=== PATIENT | male | born 1965 | race American Indian/Alaskan Native ===

== ENCOUNTER 2021-05-21 14:47 | Emergency (ER) | payer OTHER, MEDICAID, SELFPAY ==
[2021-05-21 15:06] VITALS: BP 159/90; PULSE 84; RESP 18; TEMP 37; O2SAT 99; BMI 24.4
--- NOTE | 2021-05-21 15:16 | PC.NURSE ---
Pt does use rx glasses but does not have them with him.
--- NOTE | 2021-05-21 16:08 | ED_ITS ---
HPI - Eye Problem <Stevenson Hamlin PA-C - Last Filed: 05/21/21 16:35> General Chief complaint: Eye Problems Stated complaint: bug bite on eye Time Seen by Provider: 05/21/21 15:07 Source: patient Mode of arrival: Ambulatory Limitations: no limitations History of Present Illness HPI Narrative: Kartik presents today with chief complaint of right eye redness and discomfort that he 1st noticed yesterday. He reports that he was doing some cleaning and working the yd an thinks that he got some dirt in his eye. There were a lot of flies around and one of them could have hit his eye also. He de nies any significant difficulty seeing, facial swelling, headache, fever, pain with eye movement or any other acute concerns or complaints at this time. Related Data Previous Rx's Medication Instructions Recorded erythromycin 5 mg/gram (0.5 %) eye 1 applic EYE-RIGHT TID 7 Days #3.5 05/21/21 ointment g Allergies Allergy/AdvReac Type Severity Reaction Status Date / Time No Known Drug Allergies Allergy Verified 05/21/21 16:08 Review of Systems <Stevenson Hamlin PA-C - Last Filed: 05/21/21 16:35> Review of Systems Narrative: As per HPI Patient History <Stevenson Hamlin PA-C - Last Filed: 05/21/21 16:35> Social History Smoking Status: Never smoker Smoking Status: Never smoker alcohol intake frequency: a few times a week Substance Use Type: does not use Exam <Stevenson Hamlin PA-C - Last Filed: 05/21/21 16:35> Narrative Exam Narrative: Exam Narrative: Const General: cooperative, healthy appearing, comfortable, no acute distress, well developed and well groomed Nutritional Appearance: average body habitus Orientation: alert and oriented x3 HENMT Head: normal to inspection and atraumatic Ears: hearing grossly normal bilaterally Nose: external nose normal and nares normal Face and sinus: normal facial exam Eyes: Right-sided conjunctival injection noted, watery discharge on the right. No foreign body visualized. Fluorescein stain applied with proparacaine and corneal abrasion noted at the 10 o'clock position overlying the lateral aspect of his iris. Neck Neck: normal visual inspection and supple Resp Effort & Inspection: normal respiratory effort, able to speak in complete sentences, no audible wheezes, not labored, no nasal flaring and no respiratory distress Neuro General: alert, oriented x3, gait normal, tone normal and moves all extremities Cognition: normal cognition Speech: speech normal Gait: normal gait Psych Appearance: grossly normal and well kempt Mental Status: mental status grossly normal Speech and Movement: speech and movement normal Mood: congruent mood Affect: normal affect Initial Vital Signs Initial Vital Signs: Vital Signs Temperature 98.6 F 05/21/21 15:06 Pulse Rate 84 05/21/21 15:06 Respiratory Rate 18 05/21/21 15:06 Blood Pressure 159/90 H 05/21/21 15:06 Pulse Oximetry 99 05/21/21 15:06 <Armin Kwong DO - Last Filed: 05/21/21 16:59> Initial Vital Signs Initial Vital Signs: Vital Signs Temperature 98.6 F 05/21/21 15:06 Pulse Rate 84 05/21/21 15:06 Respiratory Rate 18 05/21/21 15:06 Blood Pressure 159/90 H 05/21/21 15:06 Pulse Oximetry 99 05/21/21 15:06 Course <Stevenson Hamlin PA-C - Last Filed: 05/21/21 16:35> Orders Ordered: Discontinued Medications Fluorescein Sodium (Fluorescein 1 Mg Strip) 1 mg EYE-LEFT NOW ONE Stop: 05/21/21 16:00 Last Admin: 05/21/21 16:09 Dose: 1 mg Documented by: BAKARI Proparacaine HCl (Proparacaine 0.5% Ophth Jaja) 1 drops EYE-LEFT NOW ONE Stop: 05/21/21 16:00 Last Admin: 05/21/21 16:09 Dose: 1 drop Documented by: BAKARI Vital Signs Vital signs: Vital Signs - 8 hr 05/21/21 15:06 05/21/21 16:23 Temperature 98.6 F Pulse Rate 84 80 Respiratory Rate 18 18 Blood Pressure 159/90 H 132/95 H Pulse Oximetry 99 98 <DO Neli Green Last Filed: 05/21/21 16:59> Orders Ordered: Discontinued Medications Fluorescein Sodium (Fluorescein 1 Mg Strip) 1 mg EYE-LEFT NOW ONE Stop: 05/21/21 16:00 Last Admin: 05/21/21 16:09 Dose: 1 mg Documented by: BAKARI Proparacaine HCl (Proparacaine 0.5% Ophth Jaja) 1 drops EYE-LEFT NOW ONE Stop: 05/21/21 16:00 Last Admin: 05/21/21 16:09 Dose: 1 drop Documented by: BAKARI Vital Signs Vital signs: Vital Signs - 8 hr 05/21/21 15:06 05/21/21 16:23 Temperature 98.6 F Pulse Rate 84 80 Respiratory Rate 18 18 Blood Pressure 159/90 H 132/95 H Pulse Oximetry 99 98 MDM - Eye Problem <Stevenson Hamlin PA-C - Last Filed: 05/21/21 16:35> MDM Narrative Medical decision making narrative: No juanjose orbital lesions noted. No significant eyelid swelling or periorbital swelling. No pain with eye movement and vision is intact. We will treat for corneal abrasion at this time with strict ER return precautions if symptoms fail to improve. Discharge Plan Departure Patient Disposition: Home Clinical Impression: Corneal abrasion Qualifiers: Encounter type: initial encounter Laterality: right Qualified Code(s): S05.01XA - Injury of conjunctiva and corneal abrasion without foreign body, right eye, initial encounter Instructions: DI for Eye Pain Activity Restrictions/Additional Instructions: It was nice to meet you this afternoon. Please use the topical antibiotics for 7 days to treat any possible infection. Please return if you experience any difficulty seeing, pain with eye movement, fever or any other acute concerns or complaints. Thank you Stevenson Hamlin PAC Prescriptions: New erythromycin 5 mg/gram (0.5 %) ointment 1 applic EYE-RIGHT TID 7 Days Qty: 3.5 RF: 0 <rAmin Kwong DO - Last Filed: 05/21/21 16:59> Cosign ED Attending Cosignature Attestation: Dr Kwong Co-Sign Statement: I was available for consultation during this patient's emergency department visit. This chart is signed by myself for administrative purposes only. I did not have direct contact with this patient during this visit. They were seen independently by the APC.
[2021-05-21] MEDS: PROPARACAINE 0.5% OPHTH SOL 1 DROPS EYE-LEFT (16:09)
[2021-05-21] MEDS: FLUORESCEIN 1 MG STRIP EYE-LEFT (16:09)
[2021-05-21 16:23] VITALS: BP 132/95; PULSE 80; RESP 18; O2SAT 98
== END 2021-05-21 16:25 | disposition home or self-care (01) ==
PROVIDERS: Emergency Provider Physician Assistant
DX: S05.01XA Injury of conjunctiva and corneal abrasion without foreign body, right eye, initial encounter (principal)
CPT/HCPCS: 99282

== ENCOUNTER 2022-02-01 17:05 | Emergency (ER) | payer OTHER, MEDICAID, SELFPAY ==
[2022-02-01 17:03] VITALS: BP 141/93; PULSE 83; RESP 16; TEMP 36.4; O2SAT 95; BMI 18.2
--- NOTE | 2022-02-01 17:11 | DI.RAD.S_ITS ---
PROCEDURE: XR CHEST 1V INDICATIONS: etoh TECHNIQUE: One view of the chest was acquired. COMPARISON: None. FINDINGS: Surgical changes and devices: None. Lungs and pleura: Lungs are clear. No pleural effusions or pneumothorax. Mediastinum: Mediastinal contours appear normal. Heart size is normal. Bones and chest wall: No suspicious bony lesions. Overlying soft tissues appear unremarkable. Old healed right-sided rib fractures noted. IMPRESSION: Old healed right-sided rib fractures. No acute cardiopulmonary findings. Approved by: Andrew Reeder M.D. on 02/01/2022 at 16:42
--- NOTE | 2022-02-01 17:11 | DI.CT.S_ITS ---
PROCEDURE: CT HEAD/BRAIN WO CON INDICATIONS: etoh found unresponsive TECHNIQUE: Noncontrast 4.5 mm thick angled axial sections acquired from the foramen magnum to the vertex, with coronal and sagittal reformats. For radiation dose reduction, the following was used: automated exposure control, adjustment of mA and/or kV according to patient size. COMPARISON: None. FINDINGS: Image quality: Excellent. CSF spaces: Basal cisterns are patent. No extra-axial fluid collections. Ventricles are normal in size and shape. Brain: No midline shift. No intracranial masses or hemorrhage. Scherer-white matter interface is normal. Moderate cerebral and cerebellar volume loss with multifocal white matter chronic ischemic change noted. Mild calcified atherosclerotic plaque noted involving the cavernous portions of both internal carotid arteries. Skull and face: Calvarium and visualized facial bones are intact, without suspicious lesions. Sinuses: Visualized sinuses and mastoids are clear. IMPRESSION: Atrophy and chronic ischemic change without acute intracranial hemorrhage or mass effect. Approved by: Andrew Reeder M.D. on 02/01/2022 at 16:43
--- NOTE | 2022-02-01 17:11 | DI.CT.S_ITS ---
PROCEDURE: CT CERVICAL SPINE WO CON INDICATIONS: etoh TECHNIQUE: Noncontrast 3 mm thick sections acquired from the skull base to the T4 level. Sagittal and coronal reformats were then constructed. For radiation dose reduction, the following was used: automated exposure control, adjustment of mA and/or kV according to patient size. COMPARISON: None. FINDINGS: Image quality: Excellent. Bones: No evidence of fracture. However, there is widening of the C4-5 anterior disc space. No associated soft tissue edema. Multilevel degenerative disc space narrowing and endplate sclerosis noted in the mid to lower cervical spine. Grade 1 retrolisthesis noted at C3-4 resulting in moderate central stenosis. Severe right foraminal stenosis present. Moderate central stenosis noted at C6-7 as well Soft tissues: Prevertebral soft tissues are normal in thickness. No paravertebral hematomas. No apical pneumothoraces. IMPRESSION: 1. Widening of the anterior disc space at C4-5 may reflect relative sparing of degenerative change, however, recommend follow-up MRI cervical spine to assess integrity of the anterior longitudinal ligament 2. Multilevel degenerative disc disease and arthropathy results in at least moderate central stenosis at C3-4 and C6-7 Approved by: Andrew Reeder M.D. on 02/01/2022 at 16:48
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
== END 2022-02-01 19:01 | disposition home or self-care (01) ==
PROVIDERS: Emergency Provider Emergency Medicine
DX: F10.129 Alcohol abuse with intoxication, unspecified (principal)
CPT/HCPCS: 70450; 71045; 72125; 99283; 99284

== ENCOUNTER 2022-12-15 16:21 | Emergency (ER) | payer OTHER, MEDICAID, SELFPAY ==
[2022-12-15] VITALS (17 sets, daily range): BP systolic 101–140; BP diastolic 66–95; PULSE 71–127; RESP 11–61; TEMP 36.3; O2SAT 90–98; BMI 24.8
--- NOTE | 2022-12-15 16:29 | DI.RAD.S_ITS ---
PROCEDURE: XR FOOT RT MIN 3V INDICATIONS: foot swelling/pain TECHNIQUE: 3 views of the foot were acquired. COMPARISON: None. FINDINGS: Bones: No fractures or malalignment. Small dorsal plantar calcaneal spur. There is incomplete segmentation or erosive joint space loss at the 5th PIP joint. Soft tissues: No tibiotalar joint effusion. Achilles tendon appears normal. Soft tissue swelling around the 1st digit. No soft tissue gas. IMPRESSION: 1. No soft tissue gas or fractures. Dictated by: Mag Bo M.D. on 12/15/2022 at 18:24 Approved by: Mag Bo M.D. on 12/15/2022 at 18:33
--- NOTE | 2022-12-15 16:32 | ED_ITS ---
HPI - Alcohol <Ben Solorio MD - Last Filed: 12/22/22 08:31> General Chief Complaint: Toxicology Problem Stated Complaint: ETOH/uncooperative Time Seen by Provider: 12/15/22 16:23 History of Present Illness HPI narrative: Patient brought in by ambulance from home after a woman at the residence called for concern of right foot swelling. Patient admits he has been drinking alcohol. Patient is verbally abusive and at times swinging his arms at staff and EMS. Patient required 2 point soft restraints to the wrists. Blood sugar 114. Patient is able to state his name and date of . He admits to drinking alcohol today. He was seen here a year ago for alcohol intoxication. Woman at his residence uncertain of any fall or injury. Related Data Allergies Allergy/AdvReac Type Severity Reaction Status Date / Time No Known Drug Allergies Allergy Verified 02/01/22 17:06 Review of Systems <Ben Solorio MD - Last Filed: 12/22/22 08:31> Review of Systems Narrative: GENERAL: negative chills, fatigue, malaise, fever, sweats. HEENT: negative sinus pain, ear pain, sore throat RESPIRATORY: negative dyspnea, cough CARDIOVASCULAR: negative chest pain, palpitations GASTROINTESTINAL: negative nausea, vomiting, abdominal pain : negative dysuria, frequency, hematuria MUSCULOSKELETAL: negative muscle or bony pain SKIN: negative rash, skin lesions, positive skin injury NEUROLOGIC: negative weakness, numbness, positive altered mental status PSYCH: Is combative ROS Unobtainable: All systems reviewed & are unremarkable except as noted in HPI and below Patient History <Ben Solorio MD - Last Filed: 12/22/22 08:31> Social History Smoking Status: Never smoker Smoking Status: Never smoker alcohol intake frequency: a few times a week Alcohol type: hard liquor Substance Use Type: does not use Exam <Ben Solorio MD - Last Filed: 12/22/22 08:31> Narrative Exam Narrative: GENERAL: in no distress, not toxic not dyspneic HEAD: Normocephalic. EYES: Pupils equal round ENT: Mucous membranes moist. NECK: Trachea midline. CARDIOVASCULAR: Regular rate and rhythm without murmurs RESPIRATORY: Clear to auscultation. Breath sounds equal bilaterally. No wheezes, rales, or rhonchi. GASTROINTESTINAL: Abdomen soft, non-tender EXTREMITIES: No gross deformities. Examination right foot. There is edema to the forefoot and to the great toe. There is a 5 mm ulceration at the pad of the great toe. There is red streaking from the toe up the foot. No crepitus of the skin. No necrotic tissue. BACK: No flank tenderness. NEURO: Awake alert oriented self and date of SKIN: Warm and dry PSYCH: Is combative. Is verbally abusive. Initial Vital Signs Initial Vital Signs: Vital Signs Pulse Rate 90 12/15/22 16:30 Pulse Oximetry 94 12/15/22 16:30 <Armin Kwong DO - Last Filed: 12/16/22 06:02> Initial Vital Signs Initial Vital Signs: Vital Signs Pulse Rate 90 12/15/22 16:30 Pulse Oximetry 94 12/15/22 16:30 Course <Ben Solorio MD - Last Filed: 12/22/22 08:31> Course Course Narrative: December 15, 2022 at 6:[address] Kwong, labs and radiographic studies pending. Patient required sedation. He is on soft restraints as well. Will need [id number] at 8:45 p.m. Orders Ordered: Discontinued Medications Haloperidol (Haloperidol 5 Mg/Ml Vial) 5 mg IM NOW ONE Stop: 12/15/22 16:24 Last Admin: 12/15/22 16:58 Dose: 5 mg Documented By: CTS Doxycycline Hyclate 100 mg/ (Sodium Chloride) 100 mls @ 100 mls/hr IV NOW ONE Stop: 12/15/22 18:18 Last Infusion: 12/15/22 20:06 Dose: 0 mls/hr Documented By: Admin: 12/15/22 18:56 Dose: 100 mls/hr Documented By: CTS Sodium Chloride (Normal Saline 0.9%) 1,000 mls @ 1,000 mls/hr IV BOLUS ONE Stop: 12/15/22 19:48 Last Infusion: 12/15/22 22:18 Dose: 0 mls/hr Documented By: Admin: 12/15/22 18:55 Dose: 1,000 mls/hr Documented By: CTS Thiamine HCl 200 mg/ Sodium (Chloride) 102 mls @ 408 mls/hr IV NOW ONE Stop: 12/15/22 18:50 Last Infusion: 12/15/22 19:30 Dose: 0 mls/hr Documented By: Admin: 12/15/22 18:55 Dose: 408 mls/hr Documented By: JACEY Lorazepam (Lorazepam 2 Mg/Ml Inj) 2 mg IM NOW ONE Stop: 12/15/22 16:24 Last Admin: 12/15/22 16:58 Dose: 2 mg Documented By: JACEY Vital Signs Vital signs: Vital Signs - 8 hr 12/15/22 22:00 12/15/22 22:00 12/15/22 22:30 Pulse Rate 84 Respiratory Rate 13 Blood Pressure 109/71 129/82 Pulse Oximetry 92 12/15/22 22:30 12/15/22 23:00 12/15/22 23:00 Pulse Rate 71 83 Respiratory Rate 12 12 Blood Pressure 137/83 Pulse Oximetry 95 90 L 12/15/22 23:30 12/16/22 00:00 12/16/22 00:00 Pulse Rate 78 79 Respiratory Rate 13 13 Blood Pressure 134/85 Pulse Oximetry 95 96 12/16/22 00:30 12/16/22 01:00 12/16/22 01:00 Pulse Rate 76 77 Respiratory Rate Blood Pressure 140/80 Pulse Oximetry 98 91 12/16/22 01:30 12/16/22 02:00 12/16/22 02:00 Pulse Rate 80 88 Respiratory Rate Blood Pressure 107/63 Pulse Oximetry 96 89 L 12/16/22 02:30 12/16/22 03:00 12/16/22 03:30 Pulse Rate 92 H 92 H 91 H Respiratory Rate Blood Pressure Pulse Oximetry 93 93 95 12/16/22 04:00 12/16/22 04:00 12/16/22 04:30 Pulse Rate 95 H 110 H Respiratory Rate Blood Pressure 110/67 Pulse Oximetry 93 97 <Armin Kwong, DO - Last Filed: 12/16/22 06:02> Orders Ordered: Discontinued Medications Haloperidol (Haloperidol 5 Mg/Ml Vial) 5 mg IM NOW ONE Stop: 12/15/22 16:24 Last Admin: 12/15/22 16:58 Dose: 5 mg Documented By: JACEY Doxycycline Hyclate 100 mg/ (Sodium Chloride) 100 mls @ 100 mls/hr IV NOW ONE Stop: 12/15/22 18:18 Last Infusion: 12/15/22 20:06 Dose: 0 mls/hr Documented By: Admin: 12/15/22 18:56 Dose: 100 mls/hr Documented By: JACEY Sodium Chloride (Normal Saline 0.9%) 1,000 mls @ 1,000 mls/hr IV BOLUS ONE Stop: 12/15/22 19:48 Last Infusion: 12/15/22 22:18 Dose: 0 mls/hr Documented By: Admin: 12/15/22 18:55 Dose: 1,000 mls/hr Documented By: JACEY Thiamine HCl 200 mg/ Sodium (Chloride) 102 mls @ 408 mls/hr IV NOW ONE Stop: 12/15/22 18:50 Last Infusion: 12/15/22 19:30 Dose: 0 mls/hr Documented By: Admin: 12/15/22 18:55 Dose: 408 mls/hr Documented By: JACEY Lorazepam (Lorazepam 2 Mg/Ml Inj) 2 mg IM NOW ONE Stop: 12/15/22 16:24 Last Admin: 12/15/22 16:58 Dose: 2 mg Documented By: JACEY Vital Signs Vital signs: Vital Signs - 8 hr 12/15/22 22:00 12/15/22 22:00 12/15/22 22:30 Pulse Rate 84 Respiratory Rate 13 Blood Pressure 109/71 129/82 Pulse Oximetry 92 12/15/22 22:30 12/15/22 23:00 12/15/22 23:00 Pulse Rate 71 83 Respiratory Rate 12 12 Blood Pressure 137/83 Pulse Oximetry 95 90 L 12/15/22 23:30 12/16/22 00:00 12/16/22 00:00 Pulse Rate 78 79 Respiratory Rate 13 13 Blood Pressure 134/85 Pulse Oximetry 95 96 12/16/22 00:30 12/16/22 01:00 12/16/22 01:00 Pulse Rate 76 77 Respiratory Rate Blood Pressure 140/80 Pulse Oximetry 98 91 12/16/22 01:30 12/16/22 02:00 12/16/22 02:00 Pulse Rate 80 88 Respiratory Rate Blood Pressure 107/63 Pulse Oximetry 96 89 L 12/16/22 02:30 12/16/22 03:00 12/16/22 03:30 Pulse Rate 92 H 92 H 91 H Respiratory Rate Blood Pressure Pulse Oximetry 93 93 95 12/16/22 04:00 12/16/22 04:00 12/16/22 04:30 Pulse Rate 95 H 110 H Respiratory Rate Blood Pressure 110/67 Pulse Oximetry 93 97 MDM - Alcohol <Ben Solorio MD - Last Filed: 12/22/22 08:31> Lab Data 12/15/22 17:08 12/15/22 17:08 Labs: Lab Results 12/15/22 12/15/22 12/15/22 Range/Units 17:08 17:08 17:08 WBC 7.9 (4.5-11.0) X10^3/uL RBC 4.52 (4.5-5.9) X10^6/uL Hgb 14.0 (13.5-17.5) g/dL Hct 41.3 (41-53) % MCV 91.6 (80-100) fL MCH 30.9 (26-34) PG MCHC 33.7 (30-36) % RDW 15.6 H (11.6-14.8) % Plt Count 159 (150-400) X10^3/uL Neut % (Auto) 57.5 (50-75) % Lymph % (Auto) 37.2 (25-40) % [place] % (Auto) 4.1 (3-14) % Eos % (Auto) 0.6 L (2-4) % Baso % (Auto) 0.6 (0-2) % Neut # (Auto) 4600 (8605-3356) /uL Lymph # (Auto) 2900 (6883-5384) /uL [place] # (Auto) 300 (0-900) /uL Eos # (Auto) 0 (0-450) /uL Baso # (Auto) 0 (0-100) /uL Sodium 146 H (137-145) mmol/L Potassium 3.9 (3.4-5.1) mmol/L Chloride 107 (98-107) mmol/L Carbon Dioxide 20 L (22-32) mmol/L BUN 21 H (9-20) mg/dL Creatinine 1.38 H (0.66-1.25) mg/dL Estimated GFR 59 L (>60) mL/min BUN/Creatinine Ratio 15.2 (6-22) Glucose 104 H (70-100) mg/dL Lactate (0.7-2.1) mmol/L Calcium 8.5 (8.4-10.2) mg/dL Total Bilirubin 0.5 (0.2-1.3) mg/dL AST 98 H (17-59) IU/L ALT 82 H (<50) IU/L Alkaline Phosphatase 130 H (38-126) U/L Total Creatine Kinase (55-170) U/L CK-MB (CK-2) (<2.37) ng/mL CK-MB (CK-2) Rel Index (1.5-5.0) % Troponin I (0.01-0.034) ng/mL Total Protein 9.0 H (6.3-8.2) g/dL Albumin 4.5 (3.5-5.0) g/dL Globulin 4.5 H (1.7-4.1) g/dL Albumin/Globulin Ratio 1.0 (1.0-2.8) Procalcitonin (<0.5) ng/mL TSH 0.56 (0.47-4.68) uIU/mL Urine Color Urine Appearance Urine pH (4.5-8.0) Ur Specific [place] (1.000-1.035) Urine Protein (Negative) Urine Glucose (UA) (Negative) g/dL Urine Ketones (NEGATIVE) Urine Occult Blood (Negative) Urine Nitrate (Negative) Urine Bilirubin (NEGATIVE) Urine Urobilinogen (0.2) E.U./dL Ur Leukocyte Esterase (NEGATIVE) Urine RBC (0-5/HPF) Urine WBC (0-5/HPF) Amorphous Sediment Urine Bacteria (None) Ur Culture Indicated? U Opiates 300ng/mL cut (Negative) Ur Oxycodone Screen (Negative) Urine Methadone Screen (Negative) Ur Barbiturates Screen (Negative) U Tricyclic Antidepress (Negative) Ur Phencyclidine Scrn (Negative) Ur Amphetamines Screen (Negative) U Methamphetamines Scrn (Negative) Ur MDMA Scrn (Ecstasy) (Negative) U Benzodiazepines Scrn (Negative) Urine Cocaine Screen (Negative) U Marijuana (THC) Screen (Negative) Ethyl Alcohol 432 H* ( - 10) mg/dL 12/15/22 12/15/22 12/15/22 Range/Units 17:08 17:08 17:08 WBC (4.5-11.0) X10^3/uL RBC (4.5-5.9) X10^6/uL Hgb (13.5-17.5) g/dL Hct (41-53) % MCV (80-100) fL MCH (26-34) PG MCHC (30-36) % RDW (11.6-14.8) % Plt Count (150-400) X10^3/uL Neut % (Auto) (50-75) % Lymph % (Auto) (25-40) % [place] % (Auto) (3-14) % Eos % (Auto) (2-4) % Baso % (Auto) (0-2) % Neut # (Auto) (0127-8242) /uL Lymph # (Auto) (5224-8644) /uL [place] # (Auto) (0-900) /uL Eos # (Auto) (0-450) /uL Baso # (Auto) (0-100) /uL Sodium (137-145) mmol/L Potassium (3.4-5.1) mmol/L Chloride (98-107) mmol/L Carbon Dioxide (22-32) mmol/L BUN (9-20) mg/dL Creatinine (0.66-1.25) mg/dL Estimated GFR (>60) mL/min BUN/Creatinine Ratio (6-22) Glucose (70-100) mg/dL Lactate 3.3 H (0.7-2.1) mmol/L Calcium (8.4-10.2) mg/dL Total Bilirubin (0.2-1.3) mg/dL AST (17-59) IU/L ALT (<50) IU/L Alkaline Phosphatase (38-126) U/L Total Creatine Kinase (55-170) U/L CK-MB (CK-2) (<2.37) ng/mL CK-MB (CK-2) Rel Index (1.5-5.0) % Troponin I (0.01-0.034) ng/mL Total Protein (6.3-8.2) g/dL Albumin (3.5-5.0) g/dL Globulin (1.7-4.1) g/dL Albumin/Globulin Ratio (1.0-2.8) Procalcitonin 0.12 (<0.5) ng/mL TSH (0.47-4.68) uIU/mL Urine Color Urine Appearance Urine pH (4.5-8.0) Ur Specific [place] (1.000-1.035) Urine Protein (Negative) Urine Glucose (UA) (Negative) g/dL Urine Ketones (NEGATIVE) Urine Occult Blood (Negative) Urine Nitrate (Negative) Urine Bilirubin (NEGATIVE) Urine Urobilinogen (0.2) E.U./dL Ur Leukocyte Esterase (NEGATIVE) Urine RBC (0-5/HPF) Urine WBC (0-5/HPF) Amorphous Sediment Urine Bacteria (None) Ur Culture Indicated? U Opiates 300ng/mL cut Negative (Negative) Ur Oxycodone Screen Negative (Negative) Urine Methadone Screen Negative (Negative) Ur Barbiturates Screen Negative (Negative) U Tricyclic Antidepress Negative (Negative) Ur Phencyclidine Scrn Negative (Negative) Ur Amphetamines Screen Negative (Negative) U Methamphetamines Scrn Negative (Negative) Ur MDMA Scrn (Ecstasy) Negative (Negative) U Benzodiazepines Scrn Negative (Negative) Urine Cocaine Screen Negative (Negative) U Marijuana (THC) Screen Negative (Negative) Ethyl Alcohol ( - 10) mg/dL 12/15/22 12/15/22 12/15/22 Range/Units 17:08 17:08 21:20 WBC (4.5-11.0) X10^3/uL RBC (4.5-5.9) X10^6/uL Hgb (13.5-17.5) g/dL Hct (41-53) % MCV (80-100) fL MCH (26-34) PG MCHC (30-36) % RDW (11.6-14.8) % Plt Count (150-400) X10^3/uL Neut % (Auto) (50-75) % Lymph % (Auto) (25-40) % [place] % (Auto) (3-14) % Eos % (Auto) (2-4) % Baso % (Auto) (0-2) % Neut # (Auto) (0723-5591) /uL Lymph # (Auto) (3466-4150) /uL [place] # (Auto) (0-900) /uL Eos # (Auto) (0-450) /uL Baso # (Auto) (0-100) /uL Sodium (137-145) mmol/L Potassium (3.4-5.1) mmol/L Chloride (98-107) mmol/L Carbon Dioxide (22-32) mmol/L BUN (9-20) mg/dL Creatinine (0.66-1.25) mg/dL Estimated GFR (>60) mL/min BUN/Creatinine Ratio (6-22) Glucose (70-100) mg/dL Lactate 2.3 H (0.7-2.1) mmol/L Calcium (8.4-10.2) mg/dL Total Bilirubin (0.2-1.3) mg/dL AST (17-59) IU/L ALT (<50) IU/L Alkaline Phosphatase (38-126) U/L Total Creatine Kinase 213 H (55-170) U/L CK-MB (CK-2) 1.89 (<2.37) ng/mL CK-MB (CK-2) Rel Index 0.9 L (1.5-5.0) % Troponin I < 0.012 (0.01-0.034) ng/mL Total Protein (6.3-8.2) g/dL Albumin (3.5-5.0) g/dL Globulin (1.7-4.1) g/dL Albumin/Globulin Ratio (1.0-2.8) Procalcitonin (<0.5) ng/mL TSH (0.47-4.68) uIU/mL Urine Color [place] Urine Appearance Sl cloudy Urine pH 6.5 (4.5-8.0) Ur Specific [place] 1.010 (1.000-1.035) Urine Protein Trace H (Negative) Urine Glucose (UA) Negative (Negative) g/dL Urine Ketones Negative (NEGATIVE) Urine Occult Blood 3+ H (Negative) Urine Nitrate Negative (Negative) Urine Bilirubin Negative (NEGATIVE) Urine Urobilinogen 0.2 (0.2) E.U./dL Ur Leukocyte Esterase Negative (NEGATIVE) Urine RBC 5-10/hpf H (0-5/HPF) Urine WBC 5-10/hpf H (0-5/HPF) Amorphous Sediment 1+ Urine Bacteria None seen (None) Ur Culture Indicated? Specimen cultured U Opiates 300ng/mL cut (Negative) Ur Oxycodone Screen (Negative) Urine Methadone Screen (Negative) Ur Barbiturates Screen (Negative) U Tricyclic Antidepress (Negative) Ur Phencyclidine Scrn (Negative) Ur Amphetamines Screen (Negative) U Methamphetamines Scrn (Negative) Ur MDMA Scrn (Ecstasy) (Negative) U Benzodiazepines Scrn (Negative) Urine Cocaine Screen (Negative) U Marijuana (THC) Screen (Negative) Ethyl Alcohol ( - 10) mg/dL MDM Narrative Medical decision making narrative: Patient brought in by ambulance from home after a woman at the residence called for concern of right foot swelling. Patient admits he has been drinking alcohol. Patient is verbally abusive and at times swinging his arms at staff and EMS. Patient required 2 point soft restraints to the wrists. Blood sugar 114. Patient is able to state his name and date of . He admits to dr reno thompson today. He was seen here a year ago for alcohol intoxication. Woman at his residence uncertain of any fall or injury. After history and exam CT head CBC CMP urinalysis drug screen alcohol level blood culture procalcitonin lactic acid ordered. MDM CC: Alcohol intoxication Complicating co-morbidities: Alcohol abuse Data collected from: Patient and EMS Medical records reviewed: ER visit January 2022 for alcohol intoxication Differential considered: Includes but not limited to head injury/sepsis/cellulitis/alcohol intoxication/substance abuse/metabolic encephalopathy Exam documented above, pertinent findings include: Altered mental status/cellulitis Lab Test results independently reviewed as above. Pertinent findings: Cellulitis right great toe Independently reviewed EKG as above Imaging studies independently reviewed: Consultations: Treatments: Re-evaluations: Discussion: Diagnosis: <Armin Kwong, DO - Last Filed: 12/16/22 06:02> Lab Data Labs: Lab Results 12/15/22 12/15/22 12/15/22 Range/Units 17:08 17:08 17:08 WBC 7.9 (4.5-11.0) X10^3/uL RBC 4.52 (4.5-5.9) X10^6/uL Hgb 14.0 (13.5-17.5) g/dL Hct 41.3 (41-53) % MCV 91.6 (80-100) fL MCH 30.9 (26-34) PG MCHC 33.7 (30-36) % RDW 15.6 H (11.6-14.8) % Plt Count 159 (150-400) X10^3/uL Neut % (Auto) 57.5 (50-75) % Lymph % (Auto) 37.2 (25-40) % [place] % (Auto) 4.1 (3-14) % Eos % (Auto) 0.6 L (2-4) % Baso % (Auto) 0.6 (0-2) % Neut # (Auto) 4600 (4504-1623) /uL Lymph # (Auto) 2900 (4088-8561) /uL [place] # (Auto) 300 (0-900) /uL Eos # (Auto) 0 (0-450) /uL Baso # (Auto) 0 (0-100) /uL Sodium 146 H (137-145) mmol/L Potassium 3.9 (3.4-5.1) mmol/L Chloride 107 (98-107) mmol/L Carbon Dioxide 20 L (22-32) mmol/L BUN 21 H (9-20) mg/dL Creatinine 1.38 H (0.66-1.25) mg/dL Estimated GFR 59 L (>60) mL/min BUN/Creatinine Ratio 15.2 (6-22) Glucose 104 H (70-100) mg/dL Lactate (0.7-2.1) mmol/L Calcium 8.5 (8.4-10.2) mg/dL Total Bilirubin 0.5 (0.2-1.3) mg/dL AST 98 H (17-59) IU/L ALT 82 H (<50) IU/L Alkaline Phosphatase 130 H (38-126) U/L Total Creatine Kinase (55-170) U/L CK-MB (CK-2) (<2.37) ng/mL CK-MB (CK-2) Rel Index (1.5-5.0) % Troponin I (0.01-0.034) ng/mL Total Protein 9.0 H (6.3-8.2) g/dL Albumin 4.5 (3.5-5.0) g/dL Globulin 4.5 H (1.7-4.1) g/dL Albumin/Globulin Ratio 1.0 (1.0-2.8) Procalcitonin (<0.5) ng/mL TSH 0.56 (0.47-4.68) uIU/mL Urine Color Urine Appearance Urine pH (4.5-8.0) Ur Specific [place] (1.000-1.035) Urine Protein (Negative) Urine Glucose (UA) (Negative) g/dL Urine Ketones (NEGATIVE) Urine Occult Blood (Negative) Urine Nitrate (Negative) Urine Bilirubin (NEGATIVE) Urine Urobilinogen (0.2) E.U./dL Ur Leukocyte Esterase (NEGATIVE) Urine RBC (0-5/HPF) Urine WBC (0-5/HPF) Amorphous Sediment Urine Bacteria (None) Ur Culture Indicated? U Opiates 300ng/mL cut (Negative) Ur Oxycodone Screen (Negative) Urine Methadone Screen (Negative) Ur Barbiturates Screen (Negative) U Tricyclic Antidepress (Negative) Ur Phencyclidine Scrn (Negative) Ur Amphetamines Screen (Negative) U Methamphetamines Scrn (Negative) Ur MDMA Scrn (Ecstasy) (Negative) U Benzodiazepines Scrn (Negative) Urine Cocaine Screen (Negative) U Marijuana (THC) Screen (Negative) Ethyl Alcohol 432 H* ( - 10) mg/dL 12/15/22 12/15/22 12/15/22 Range/Units 17:08 17:08 17:08 WBC (4.5-11.0) X10^3/uL RBC (4.5-5.9) X10^6/uL Hgb (13.5-17.5) g/dL Hct (41-53) % MCV (80-100) fL MCH (26-34) PG MCHC (30-36) % RDW (11.6-14.8) % Plt Count (150-400) X10^3/uL Neut % (Auto) (50-75) % Lymph % (Auto) (25-40) % [place] % (Auto) (3-14) % Eos % (Auto) (2-4) % Baso % (Auto) (0-2) % Neut # (Auto) (9756-2504) /uL Lymph # (Auto) (4354-1560) /uL [place] # (Auto) (0-900) /uL Eos # (Auto) (0-450) /uL Baso # (Auto) (0-100) /uL Sodium (137-145) mmol/L Potassium (3.4-5.1) mmol/L Chloride (98-107) mmol/L Carbon Dioxide (22-32) mmol/L BUN (9-20) mg/dL Creatinine (0.66-1.25) mg/dL Estimated GFR (>60) mL/min BUN/Creatinine Ratio (6-22) Glucose (70-100) mg/dL Lactate 3.3 H (0.7-2.1) mmol/L Calcium (8.4-10.2) mg/dL Total Bilirubin (0.2-1.3) mg/dL AST (17-59) IU/L ALT (<50) IU/L Alkaline Phosphatase (38-126) U/L Total Creatine Kinase (55-170) U/L CK-MB (CK-2) (<2.37) ng/mL CK-MB (CK-2) Rel Index (1.5-5.0) % Troponin I (0.01-0.034) ng/mL Total Protein (6.3-8.2) g/dL Albumin (3.5-5.0) g/dL Globulin (1.7-4.1) g/dL Albumin/Globulin Ratio (1.0-2.8) Procalcitonin 0.12 (<0.5) ng/mL TSH (0.47-4.68) uIU/mL Urine Color Urine Appearance Urine pH (4.5-8.0) Ur Specific [place] (1.000-1.035) Urine Protein (Negative) Urine Glucose (UA) (Negative) g/dL Urine Ketones (NEGATIVE) Urine Occult Blood (Negative) Urine Nitrate (Negative) Urine Bilirubin (NEGATIVE) Urine Urobilinogen (0.2) E.U./dL Ur Leukocyte Esterase (NEGATIVE) Urine RBC (0-5/HPF) Urine WBC (0-5/HPF) Amorphous Sediment Urine Bacteria (None) Ur Culture Indicated? U Opiates 300ng/mL cut Negative (Negative) Ur Oxycodone Screen Negative (Negative) Urine Methadone Screen Negative (Negative) Ur Barbiturates Screen Negative (Negative) U Tricyclic Antidepress Negative (Negative) Ur Phencyclidine Scrn Negative (Negative) Ur Amphetamines Screen Negative (Negative) U Methamphetamines Scrn Negative (Negative) Ur MDMA Scrn (Ecstasy) Negative (Negative) U Benzodiazepines Scrn Negative (Negative) Urine Cocaine Screen Negative (Negative) U Marijuana (THC) Screen Negative (Negative) Ethyl Alcohol ( - 10) mg/dL 12/15/22 12/15/22 12/15/22 Range/Units 17:08 17:08 21:20 WBC (4.5-11.0) X10^3/uL RBC (4.5-5.9) X10^6/uL Hgb (13.5-17.5) g/dL Hct (41-53) % MCV (80-100) fL MCH (26-34) PG MCHC (30-36) % RDW (11.6-14.8) % Plt Count (150-400) X10^3/uL Neut % (Auto) (50-75) % Lymph % (Auto) (25-40) % [place] % (Auto) (3-14) % Eos % (Auto) (2-4) % Baso % (Auto) (0-2) % Neut # (Auto) (6972-8560) /uL Lymph # (Auto) (1886-7743) /uL [place] # (Auto) (0-900) /uL Eos # (Auto) (0-450) /uL Baso # (Auto) (0-100) /uL Sodium (137-145) mmol/L Potassium (3.4-5.1) mmol/L Chloride (98-107) mmol/L Carbon Dioxide (22-32) mmol/L BUN (9-20) mg/dL Creatinine (0.66-1.25) mg/dL Estimated GFR (>60) mL/min BUN/Creatinine Ratio (6-22) Glucose (70-100) mg/dL Lactate 2.3 H (0.7-2.1) mmol/L Calcium (8.4-10.2) mg/dL Total Bilirubin (0.2-1.3) mg/dL AST (17-59) IU/L ALT (<50) IU/L Alkaline Phosphatase (38-126) U/L Total Creatine Kinase 213 H (55-170) U/L CK-MB (CK-2) 1.89 (<2.37) ng/mL CK-MB (CK-2) Rel Index 0.9 L (1.5-5.0) % Troponin I < 0.012 (0.01-0.034) ng/mL Total Protein (6.3-8.2) g/dL Albumin (3.5-5.0) g/dL Globulin (1.7-4.1) g/dL Albumin/Globulin Ratio (1.0-2.8) Procalcitonin (<0.5) ng/mL TSH (0.47-4.68) uIU/mL Urine Color [place] Urine Appearance Sl cloudy Urine pH 6.5 (4.5-8.0) Ur Specific [place] 1.010 (1.000-1.035) Urine Protein Trace H (Negative) Urine Glucose (UA) Negative (Negative) g/dL Urine Ketones Negative (NEGATIVE) Urine Occult Blood 3+ H (Negative) Urine Nitrate Negative (Negative) Urine Bilirubin Negative (NEGATIVE) Urine Urobilinogen 0.2 (0.2) E.U./dL Ur Leukocyte Esterase Negative (NEGATIVE) Urine RBC 5-10/hpf H (0-5/HPF) Urine WBC 5-10/hpf H (0-5/HPF) Amorphous Sediment 1+ Urine Bacteria None seen (None) Ur Culture Indicated? Specimen cultured U Opiates 300ng/mL cut (Negative) Ur Oxycodone Screen (Negative) Urine Methadone Screen (Negative) Ur Barbiturates Screen (Negative) U Tricyclic Antidepress (Negative) Ur Phencyclidine Scrn (Negative) Ur Amphetamines Screen (Negative) U Methamphetamines Scrn (Negative) Ur MDMA Scrn (Ecstasy) (Negative) U Benzodiazepines Scrn (Negative) Urine Cocaine Screen (Negative) U Marijuana (THC) Screen (Negative) Ethyl Alcohol ( - 10) mg/dL ECG Data Attestation: I personally reviewed and interpreted this ECG as follows: Interpretation: Sinus rhythm Ventricular rate is 65 Normal axis Normal QRS Normal QTC No ST T wave changes MDM Narrative Medical decision making narrative: Patient brought in by ambulance from home after a woman at the residence called for concern of right foot swelling. Patient admits he has been drinking alcohol. Patient is verbally abusive and at times swinging his arms at staff and EMS. Patient required 2 point soft restraints to the wrists. Blood sugar 114. Patient is able to state his name and date of . He admits to drinking alcohol today. He was seen here a year ago for alcohol intoxication. Woman at his residence uncertain of any fall or injury. After history and exam CT head CBC CMP urinalysis drug screen alcohol level blood culture procalcitonin lactic acid ordered. MDM CC: Alcohol intoxication Complicating co-morbidities: Alcohol abuse Data collected from: Patient and EMS Medical records reviewed: ER visit January 2022 for alcohol intoxication Differential considered: Includes but not limited to head injury/sepsis/cellulitis/alcohol intoxication/substance abuse/metabolic encephalopathy Exam documented above, pertinent findings include: Altered mental status/cellulitis Lab Test results independently reviewed as above. Pertinent findings: Cellulitis right great toe Independently reviewed EKG as above Imaging studies independently reviewed: Consultations: Treatments: Re-evaluations: Discussion: Diagnosis: Elenita: Received turned over. Patient's history and physical exam. Reviewed workup up to this point. Patient was intoxicated. He has been stable. Vital signs been stable. Lactate improve. After a period of time sleeping in the emergency department the patient woke up. He was alert and calm. He stated that he was unsure why he was here in the emergency department. He reported no pain. He tolerated oral intake. Will discharge patient with return precautions. Discharge Plan Departure Patient Disposition: Home Clinical Impression: Alcoholic intoxication Instructions: DI for Alcohol Use Disorder Activity Restrictions/Additional Instructions: No driving for the next 24 hours or in the future if you drink alcohol. I do recommend that you try to cut back on the amount that you were drinking. Co ntact your primary doctor for follow-up. Return to the emergency department for any new symptoms. Stand Alone Forms: Patient Portal/API Restraint [id number] <Ben Solorio MD - Last Filed: 12/22/22 08:31> Restraint Dsir-rf-Dzbr Evaluation Waiw-yf-Utix #1: Date: 12/15/22 Time: 16:45 Patient Appearance: Unkempt, Disheveled and Inappropriate Level of Consciousness: Combative and Inappropriate Speech Pattern: Inappropriate and Includes Profanity Mood Description: Angry and Hostile Ability to Follow Directions: Poor Hallucination Type: None Thought Process: Disorganized Respirations: Normal respiratory rate Cardiac: Regular Rate and Regular Rhythm Circulation: Moves all extremities Behavior necessitating restraint: Agitated, Escalating verbal abuse, ET [place]/Substance Abuse and Violent Restraint risks explained to patient: Yes Restraint risks explained to family: No (No family present) Reaction to Intervention: Pulling at Restraints and Agitated, Constant Movement Restraint Needs: Continue Restraints
--- NOTE | 2022-12-15 16:42 | DI.CT.S_ITS ---
PROCEDURE: CT HEAD/BRAIN WO CON INDICATIONS: foot swelling/pain TECHNIQUE: Noncontrast 4.5 mm thick angled axial sections acquired from the foramen magnum to the vertex, with coronal and sagittal reformats. For radiation dose reduction, the following was used: automated exposure control, adjustment of mA and/or kV according to patient size. COMPARISON: CT, CT HEAD/BRAIN WO CON, 02/01/2022, 17:26. FINDINGS: Image quality: Excellent. CSF spaces: Basal cisterns are patent. No extra-axial fluid collections. Ventricles are normal in size and shape. Brain: No intracranial hemorrhage, mass, or mass effect. Scherer-white matter interface appears preserved. Skull and face: Calvarium and visualized facial bones are intact, without suspicious lesions. Sinuses: Visualized sinuses and mastoids are clear. IMPRESSION: 1. No acute intracranial abnormality. Dictated by: Uriel Meza M.D. on 12/15/2022 at 20:06 Approved by: Uriel Meza M.D. on 12/15/2022 at 20:07
[2022-12-15] MEDS: HALOPERIDOL 5 MG/ML VIAL IM (16:58)
[2022-12-15] MEDS: LORazepam 2 MG/ML INJ IM (16:58)
--- NOTE | 2022-12-15 16:58 | PC.NURSE ---
Pt yelling and screaming/cussing at staff. Speaking words. Heavily intoxicated. Attempting to pull at equipment, hitting and grab staff. Pt placed in 2 point soft restraints as ordered for patient and staff safety. Pt on continuous observation at this time by RN. Pt given IM medication to help calm his agitation until he can be brought to imaging.
[2022-12-15 17:24] LABS: Add Manual Diff / Slide Review NO; Basophils Absolute Auto 0 /uL (0-100); Basophils Percent Auto 0.6 % (0-2); Eosinophils Absolute Auto 0 /uL (0-450); Eosinophils Percent Auto 0.6 % (2-4); Hematocrit 41.3 % (41-53); Lymphocytes Absolute Auto 2900 /uL (1100-4500); Lymphocytes Percent Auto 37.2 % (25-40); Mean Corpuscular HGB Conc 33.7 % (30-36); Mean Corpuscular Hemoglobin 30.9 PG (26-34); Mean Corpuscular Volume 91.6 fL (80-100); Monocytes Absolute Auto 300 /uL (0-900); Monocytes Percent Auto 4.1 % (3-14); Neutrophils Absolute Auto 4600 /uL (1500-7000); Neutrophils Percent Auto 57.5 % (50-75); Platelet Count 159 X10^3/uL (150-400); Red Blood Cell Count 4.52 X10^6/uL (4.5-5.9); Red Cell Distribution Width 15.6 % (11.6-14.8); White Blood Cell Count 7.9 X10^3/uL (4.5-11.0)
[2022-12-15 17:25] LABS: Appearance Urine UA SL CLOUDY; Bilirubin Urine UA NEGATIVE (NEGATIVE); Color Urine UA ORANGE; Glucose Urine UA NEGATIVE (Negative); Ketones Urine UA NEGATIVE (NEGATIVE); Leukocyte Esterase Urine UA NEGATIVE (NEGATIVE); Nitrite Urine UA NEGATIVE (Negative); Occult Blood Urine UA 3+ (Negative); Protein Urine UA TRACE (Negative); Urobilinogen Urine UA 0.2 E.U./dL (0.2); pH Urine UA 6.5 (4.5-8.0)
[2022-12-15 17:30] LABS: UR Morphine/Opiate cutoff 300 Negative (Negative); Ur Creatinine Normal (Normal); Ur Specific Gravity Normal (Normal); Urine Amphetamines Negative (Negative); Urine Barbiturates Negative (Negative); Urine Benzodiazepines Negative (Negative); Urine Cocaine Negative (Negative); Urine MDMA Negative (Negative); Urine Methadone Negative (Negative); Urine Methamphetamines Negative (Negative); Urine Oxycodone Negative (Negative); Urine Phencyclidine Negative (Negative); Urine Tetrahydrocannabinol Negative (Negative); Urine Tricyclic Antidepressant Negative (Negative); Urine pH Normal (Normal)
[2022-12-15 17:32] LABS: RBC Urine 5-10/HPF (0-5/HPF)
--- NOTE | 2022-12-15 17:32 | PC.NURSE ---
Pt continues to be combative and uncooperative when touched. 2-3 RN assist for IV placement. XR changed to portable. Pt unable to go to head CT a this time due to agitation despite IM medications. Opens eyes to verbal, responsive to pain. Refusing to wear O2 cannula. SPO2 90% when calm s/p medication. Pt will not keep simple mask in place. When roused SPO2 increases to 97-98%. BP 119/80 HR 81 NSR.
[2022-12-15 17:33] LABS: Amorphous Sediment Urine 1+; Bacteria Urine None Seen
[2022-12-15 17:34] LABS: Culture Indicated Urine Specimen Cultured; Lactate (Lactic Acid) 3.3 mmol/L (0.7-2.1); WBC Urine 5-10/HPF (0-5/HPF)
[2022-12-15 17:37] LABS: Alanine Aminotransferase 82 IU/L (<50); Albumin 4.5 g/dL (3.5-5.0); Alkaline Phosphatase 130 U/L (38-126); Aspartate Aminotransferase 98 IU/L (17-59); BUN Creatinine Ratio 15.2 (6-22); Bilirubin Total 0.5 mg/dL (0.2-1.3); Blood Urea Nitrogen 21 mg/dL (9-20); Calcium 8.5 mg/dL (8.4-10.2); Carbon Dioxide 20 mmol/L (22-32); Chloride 107 mmol/L (98-107); Estimated Glomerular Filt Rate 59 mL/min (>60); Globulin 4.5 g/dL (1.7-4.1); Glucose 104 mg/dL (70-100); HEMOLYSIS < 15 (0-50); Potassium 3.9 mmol/L (3.4-5.1); Sodium 146 mmol/L (137-145)
[2022-12-15 17:50] LABS: Ethanol (ETOH) 432 mg/dL
[2022-12-15 18:13] LABS: TSH w/ Reflex to FT4 0.56 uIU/mL (0.47-4.68)
--- NOTE | 2022-12-15 18:48 | PC.NURSE ---
183: Restraints removed for pt sleeping. calm at this time while resting, taken to and from CT. on phone states that pt has been complaining his heart hurts and his R foot has been increasingly more red and swollen. Bilateral feet appear to be quite dirty and unkept. bottom of R great toe has a tunnelling ulcer that appears dark/black in color. foot blanches when touched. Toe nails unable to obtain cap refill do to quality of toenails. Doxy ordered and infusing per MAR.
[2022-12-15] MEDS: SODIUM CHLORIDE 0.9% 1,000 ML 1000 ML IV (18:55)
[2022-12-15] MEDS: THIAMINE 200 MG in SODIUM CHLORIDE 0.9% 100 ML 408 MG IV (18:55)
[2022-12-15] MEDS: DOXYCYCLINE 100 MG in SODIUM CHLORIDE 0.9% 100 ML IV (18:56)
[2022-12-15 19:05] LABS: Creatine Kinase 213 U/L (55-170)
[2022-12-15 19:15] LABS: Reflexed Lactate in 2 Hours Y
[2022-12-15 19:17] LABS: Procalcitonin 0.12 ng/mL (<0.5); Troponin I < 0.012 ng/mL (0.01-0.034)
[2022-12-15 19:20] LABS: CKMB % Relative Index 0.9 % (1.5-5.0); Creatine Kinase MB 1.89 ng/mL (<2.37)
[2022-12-15 21:39] LABS: Lactate 2HR (Lactic Acid Rflx) 2.3 mmol/L (0.7-2.1)
--- NOTE | 2022-12-15 22:37 | PC.NURSE ---
At report at 1900,I was told restraints were discontinued when he went to CT scan.
[2022-12-16] VITALS (11 sets, daily range): BP systolic 107–140; BP diastolic 63–85; PULSE 76–110; RESP 13–18; TEMP 36.6; O2SAT 89–99
--- NOTE | 2022-12-16 04:33 | PC.NURSE ---
He is awake,speech clear,alert,thirsty and hungry,sandwich and beverage offered and taken.wants to go home.sr on cm.
== END 2022-12-16 06:35 | disposition home or self-care (01) ==
PROVIDERS: Emergency Medicine; Emergency Provider Emergency Medicine
DX: F10.129 Alcohol abuse with intoxication, unspecified (principal); Y90.8 Blood alcohol level of 240 mg/100 ml or more; R22.41 Localized swelling, mass and lump, right lower limb
CPT/HCPCS: 36415; 70450; 73630; 80053; 80305; 80320; 81001; 82550; 82553; 83605; 84145; 84443; 84484; 85025; 87040; 87086; 93005; 96365; 96372; 99284; 99285; J1630; J2060

== ENCOUNTER → 2023-12-22 12:25 | Outpatient (CLI) | payer OTHER, MEDICAID, SELFPAY ==
--- NOTE | 2023-12-22 12:27 | DI.RAD.S_ITS ---
PROCEDURE: XR TOE RT MIN 2V INDICATIONS: Infection of right great toe TECHNIQUE: 3 views of the 1st toe(s) acquired. COMPARISON: None. FINDINGS: Bones: No fractures or dislocations. No osseous erosion, osteolysis or periosteal reaction. No suspicious bony lesions. Moderate degenerative changes of the 1st IP joint with joint space narrowing and juxta-articular osteophytosis. Mild degenerative changes of the midfoot with dorsal osteophytosis. Soft tissues: No suspicious soft tissue densities. No radiopaque foreign body. IMPRESSION: 1. No acute bony abnormality. 2. No radiographic evidence of osteomyelitis. If there is a high clinical suspicion, recommend an MRI for further evaluation. 3. Moderate degenerative changes of the 1st IP joint. Dictated by: Vernell Tan M.D. on 12/22/2023 at 13:31 Approved by: Vernell Tna M.D. on 12/22/2023 at 13:32
== END ==
LOC: RAD 12:26
PROVIDERS: Referring Provider Physician Assistant Medical; Visit Provider Physician Assistant Medical
DX: L08.9 Local infection of the skin and subcutaneous tissue, unspecified (principal)
CPT/HCPCS: 73660

== ENCOUNTER 2024-04-14 06:58 | Emergency (ER) | payer OTHER, MEDICAID, SELFPAY ==
[2024-04-14 07:06] VITALS: PULSE 82; O2SAT 95
[2024-04-14 07:07] VITALS: BP 137/86; PULSE 82; O2SAT 97
[2024-04-14 07:10] VITALS: BP 137/86; PULSE 102; RESP 18; TEMP 36.8; O2SAT 97; BMI 21.7
[2024-04-14 07:30] VITALS: BP 123/76; PULSE 104; O2SAT 97
[2024-04-14 08:00] VITALS: BP 134/91; PULSE 94; O2SAT 96
--- NOTE | 2024-04-14 08:17 | ED_ITS ---
HPI - Skin/Abscess/Foreign Bdy General Chief complaint: Skin/Abscess/Foreign Body Stated complaint: left hand infection Time Seen by Provider: 04/14/24 08:17 Source: patient Mode of arrival: Ambulatory Limitations: no limitations History of Present Illness HPI narrative: 58-year-old male with history of COPD who presents with complaint of infection of the left hand. Patient states about 2 weeks ago he was walking [place] he tripped or fell scraping his hand. He states it is scabbed over but has continued to be little bit red and swollen and never completely healed an open back up last night draining some serosanguineous fluid. Patient states it is little bit tender. He states he can move everything fine he does not think that he broke any bones. He is able to fully flex and extend all his fingers hands and wrist but does have some mild redness and swelling over the dorsum adjacent to the scabbing. Patient states he has not on any daily prescription medications. States has a history of COPD. States his tetanus is updated in the last several months. Patient denies any major surgeries. Denies any known drug allergies. Former smoker, does drink alcohol occasionally, denies any rec reational drugs. He is also requesting exam to get glasses. Discussed several options with concert pianist in optometry locally. He does have a primary care physician Dr. Contreras. Related Data Previous Rx's Medication Instructions Recorded doxycycline hyclate 100 mg capsule 100 mg PO BID #20 caps 12/22/23 ibuprofen 400 mg tablet 400 mg PO Q8H #20 tabs 12/22/23 doxycycline hyclate 100 mg tablet 100 mg PO BID #20 tabs 04/14/24 Allergies Allergy/AdvReac Type Severity Reaction Status Date / Time No Known Drug Allergies Allergy Verified 12/22/23 11:39 Review of Systems Review of Systems ROS Unobtainable: All systems reviewed & are unremarkable except as noted in HPI and below Patient History Social History Smoking Status: Former smoker Smoking Status: Former smoker alcohol intake frequency: a few times a week Alcohol type: hard liquor Substance Use Type: does not use Exam Narrative Exam Narrative: GENERAL: Alert and oriented x three, male appears older than stated age. HEENT: Head normocephalic, atraumatic, EOMI, pupils reactive, face symmetric, moist mucous membranes NECK: Supple, full range of motion CARDIOVASCULAR: Regular rate and rhythm without murmurs, rubs or gallops. No JVD. No edema bilateral lower extremities. RESPIRATORY: Breath sounds equal bilaterally, no wheezes rales or rhonchi. No tachypnea or accessory muscle use. ABDOMEN: Soft, nontender. Normoactive bowel sounds all 4 quadrants. No guarding or rebound, rigidity, no mass : No CVA tenderness EXTREMITIES: Normal range of motion, no clubbing. Neurovascularly intact. Patient has 2 abrasions on the dorsum of his left hand, the more proximal is slightly open draining serosanguineous fluid, there is some surrounding that extends about 2 cm. Area is mildly tender to touch. No bony tenderness throughout the hand, fingers, wrist or arm. No erythema tracking up. No fusiform digits. Cap refills less than 2 seconds in all 5 fingers. 2+ radial pulse. NEUROLOGICAL: Cranial nerves II through XII grossly intact. Moving all extremities SKIN: Warm, dry, no petechiae, no rashes or lesions. Initial Vital Signs Initial Vital Signs: Vital Signs Pulse Rate 82 04/14/24 07:06 Pulse Oximetry 95 04/14/24 07:06 Course Vital Signs Vital signs: Vital Signs - 8 hr 04/14/24 07:06 04/14/24 07:07 04/14/24 07:07 Temperature Pulse Rate 82 82 Respiratory Rate Blood Pressure 137/86 Pulse Oximetry 95 97 Oxygen Delivery Method 04/14/24 07:10 04/14/24 07:30 04/14/24 07:30 Temperature 98.2 F Pulse Rate 102 H 104 H Respiratory Rate 18 Blood Pressure 137/86 123/76 Pulse Oximetry 97 97 Oxygen Delivery Method Room Air 04/14/24 08:00 04/14/24 08:00 Temperature Pulse Rate 94 H Respiratory Rate Blood Pressure 134/91 H Pulse Oximetry 96 Oxygen Delivery Method Discharge Plan Departure Patient Disposition: Home Clinical Impression: Abrasion of hand with infection Instructions: DI for Wound Infection Activity Restrictions/Additional Instructions: Follow up for recheck if your wound has not healed in the next week. You can follow up with [facility]hthalmology or [facility] which is across from the hospital to be evaluated for glasses. Take antibiotics until completed. Prescription was sent to [email or web address] in [place]. Keep your wound clean and dry, wash daily or if obviously dirty. Please return for fevers, increasing redness, swelling, any purulent drainage, inability to lift or move your fingers, hand or wrist, new numbness tingling or weakness or other new or concerning changes. Prescriptions: New doxycycline hyclate 100 mg tablet 100 mg PO BID Qty: 20 0RF No Action doxycycline hyclate 100 mg capsule 100 mg PO BID Qty: 20 0RF ibuprofen 400 mg tablet 400 mg PO Q8H Qty: 20 0RF Referrals: Nidhi Zendejas MD [Physician] - Miscellaneous,MD Victor Hugo [Primary Care Provider] - Stand Alone Forms: Patient Portal/API
[2024-04-14 08:48] VITALS: BP 130/86; PULSE 62
== END 2024-04-14 08:51 | disposition home or self-care (01) ==
PROVIDERS: Emergency Provider Emergency Medicine
DX: S60.512A Abrasion of left hand, initial encounter (principal); L08.9 Local infection of the skin and subcutaneous tissue, unspecified; W01.0XXA Fall on same level from slipping, tripping and stumbling without subsequent striking against object, initial encounter; Y93.01 Activity, walking, marching and hiking; Y92.821 Forest as the place of occurrence of the external cause
CPT/HCPCS: 99281; 99283

== ENCOUNTER 2024-08-08 19:26 | Emergency (ER) | payer OTHER, MEDICAID, SELFPAY ==
[2024-08-08 19:36] VITALS: BP 154/94; PULSE 77; RESP 16; TEMP 36.4; O2SAT 97; BMI 22.4
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
[2024-08-08 21:57] LABS: Ethanol (ETOH) 422 mg/dL
== END 2024-08-08 22:07 | disposition home or self-care (01) ==
PROVIDERS: Emergency Provider Emergency Medicine
DX: F10.129 Alcohol abuse with intoxication, unspecified (principal); Y90.8 Blood alcohol level of 240 mg/100 ml or more; Z00.8 Encounter for other general examination; M47.812 Spondylosis without myelopathy or radiculopathy, cervical region; R41.82 Altered mental status, unspecified; V89.2XXA Person injured in unspecified motor-vehicle accident, traffic, initial encounter
CPT/HCPCS: 36415; 70450; 72125; 80320; 99283; 99284

== ENCOUNTER → 2024-11-02 10:09 | Outpatient (CLI) | payer OTHER, SELFPAY ==
--- NOTE | 2024-11-02 10:11 | DI.RAD.S_ITS ---
PROCEDURE: XR FOOT RT MIN 3V INDICATIONS: R foot pain TECHNIQUE: 3 views of the foot were acquired. COMPARISON: [facility], CR, XR FOOT RT MIN 3V, 12/15/2022, 17:34. FINDINGS: Bones: There is bony erosion across the 1st PIP joint. Bony erosion of the 5th proximal phalanx shaft and distal 5th phalanx. Bone remodeling of the 2nd through 4th metatarsal heads. Soft tissues: No tibiotalar joint effusion. Achilles tendon appears normal. IMPRESSION: Bony erosion across the 1st PIP joint, 5th proximal phalanx shaft and distal 5th phalanx. Findings are highly concerning for osteomyelitis. Recommend MRI with contrast. Dictated by: Hiro Og M.D. on 11/02/2024 at 10:40 Approved by: Hiro Og M.D. on 11/02/2024 at 10:42
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
== END ==
LOC: RAD 10:10
PROVIDERS: Referring Provider Physician Assistant Medical; Visit Provider Physician Assistant Medical
DX: M85.871 Other specified disorders of bone density and structure, right ankle and foot (principal); M79.673 Pain in unspecified foot; M25.579 Pain in unspecified ankle and joints of unspecified foot
CPT/HCPCS: 73610; 73630

== ENCOUNTER 2024-11-02 11:21 | Inpatient (IN) | payer MEDICAID, OTHER, SELFPAY ==
[2024-11-02] VITALS (14 sets, daily range): BP systolic 128–155; BP diastolic 82–105; PULSE 67–115; RESP 12–26; TEMP 36.6–36.8; O2SAT 92–99; BMI 21.1; BMI 19.8
--- NOTE | 2024-11-02 11:40 | DI.RAD.S_ITS ---
PROCEDURE: XR CHEST 1V INDICATIONS: suspected sepsis TECHNIQUE: One view of the chest was acquired. COMPARISON: [facility], CR, XR CHEST 1V, 02/01/2022, 17:04. FINDINGS: Surgical changes and devices: None. Lungs and pleura: Lungs are clear. No pleural effusions or pneumothorax. Mediastinum: Mediastinal contours appear normal. Heart size is normal. Bones and chest wall: No suspicious bony lesions. Overlying soft tissues appear unremarkable. IMPRESSION: No acute cardiopulmonary abnormality is seen. Dictated by: Hiro Og M.D. on 11/02/2024 at 12:18 Approved by: Hiro Og M.D. on 11/02/2024 at 12:18
--- NOTE | 2024-11-02 11:44 | EKG_ITS ---
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
--- NOTE | 2024-11-02 11:47 | ED_ITS ---
HPI - Extremity Problem General Chief complaint: Extremity Problem,Nontraumatic Stated complaint: RT ankle swollen Time Seen by Provider: 11/02/24 11:46 Source: patient Mode of arrival: Ambulatory History of Present Illness HPI Narrative: 59-year-old male without any significant past medical history presents to the emergency department from walk-in clinic for evaluation of pain swelling to the right foot ongoing persistent for the past month. Patient states they had a wound on the lateral aspect of his right pinky initially. Patient did have x- rays performed at the walk-in clinic which showed concerns for early osteomyelitis therefore was sent here to the emergency department. He states that he has noticed significant amount more swelling redness purulent discharge. He denies any other systemic symptoms Related Data Home Medications Medication Instructions Recorded Confirmed No Known Home Medications 11/02/24 11/02/24 Allergies Allergy/AdvReac Type Severity Reaction Status Date / Time No Known Drug Allergies Allergy Verified 11/02/24 10:01 Review of Systems Review of Systems Narrative: General: Denies fever, chills, weight loss HEENT: Denies headache, eye drainage, eye irritation, head trauma, sore throat, voice change Cardiovascular: Denies any chest pain, palpitations, shortness of breath, tachycardia Respiratory: Denies any shortness of breath, cough, wheeze, stridor GI/: Denies any abdominal pain, nausea, vomiting, diarrhea, bright red blood per rectum, melanotic stools, urinary frequency, urinary retention, dysuria, hematuria MSK: Positive swelling pain purulent discharge to the right foot, near the pinky toe Skin: Denies any rashes, lesions, discoloration Neuro: Denies any headache, lightheadedness, dizziness, fainting, weakness Psych: Denies SI/HI Patient History Social History Smoking Status: Former smoker Smoking Status: Former smoker alcohol intake frequency: a few times a week Alcohol type: hard liquor Exam Narrative Exam Narrative: General: Cooperative, comfortable, well-developed, not in acute distress HEENT: Normocephalic, atraumatic, PERRLA, normal sclera, eyelids normal, Neck: Active full range of motion, atraumatic Chest: Normal to inspection, negative crepitus, no overlying erythema ecchymosis Respiratory: Normal respiratory effort, not in acute respiratory distress, clear to auscultation bilaterally negative cough, wheeze, tachypnea, rhonchi, rales Cardiology: Regular rate rhythm negative gallop, murmur, rubs GI/: Normal to inspection, soft, nonrigid, no tenderness to palpation, exam deferred MSK: Patient with purulent discharge erythema edema noted to the right foot, ulcer noted to the right lateral toe, no crepitus noted neurovascularly intact Skin: No rashes lesions noted Neuro: Alert awake oriented x3, moves all 4 extremities spontaneously, cranial nerves intact, able to answer all questions appropriately follows commands appropriately Psych: Cooperative, negative suicidal or homicidal ideations Initial Vital Signs Initial Vital Signs: Vital Signs Temperature 98.2 F 11/02/24 11:24 Pulse Rate 115 H 11/02/24 11:24 Respiratory Rate 18 11/02/24 11:24 Blood Pressure 138/90 11/02/24 11:24 Pulse Oximetry 96 11/02/24 11:24 Oxygen Delivery Method Room Air 11/02/24 11:24 Course Orders Ordered: ED Orders 11/02/24 11:34 Consult to [facility] [place] - Chimney Sweeper Stat 11/02/24 11:40 XR chest 1V Stat EKG-12 Lead Stat RT Consult Eval and Treat NOW 11/02/24 11:49 MR foot RT wo/w con Stat 11/02/24 12:20 Complete Blood Count AUTO DIFF Stat Comprehensive Metabolic Panel Stat Lactate (Lactic Acid) Stat Lipase Stat PTT Partial Thromboplastin Jose Alberto Stat Procalcitonin Stat Prothrombin Time INR Stat 11/02/24 12:35 Blood Culture Stat 11/02/24 14:00 Urine Microscopic Stat Ondansetron HCl (Ondansetron 4 Mg/2 Ml Inj) 4 mg IV NOW PRN PRN Reason: Nausea And Vomiting Ondansetron HCl (Ondansetron 4 Mg Odt) 4 mg SL NOW PRN PRN Reason: Nausea And Vomiting Discontinued Medications Sodium Chloride (Normal Saline 0.9%) 1,000 mls @ 1,000 mls/hr IV BOLUS ONE Stop: 11/02/24 12:38 Last Admin: 11/02/24 12:30 Dose: 1,000 mls/hr Documented By: JAMEEL Vancomycin HCl/Dextrose (Vancomycin) 2,000 mg in 400 mls @ 200 mls/hr IV NOW ONE Stop: 11/02/24 13:49 Last Admin: 11/02/24 13:34 Dose: 200 mls/hr Documented By: SHERON Cefepime HCl 2 gm/ Sodium (Chloride) 100 mls @ 200 mls/hr IV NOW ONE Stop: 11/02/24 11:51 Last Infusion: 11/02/24 13:36 Dose: Infused Documented By: Admin: 11/02/24 12:30 Dose: 200 mls/hr Documented By: JAMEEL Vital Signs Vital signs: Vital Signs - 8 hr 11/02/24 11:24 11/02/24 11:48 11/02/24 12:00 Temperature 98.2 F Pulse Rate 115 H 100 H 90 Pulse Rate [Right Dorsalis Pedis] Respiratory Rate 18 23 14 Blood Pressure 138/90 Pulse Oximetry 96 94 97 Oxygen Delivery Method Room Air 11/02/24 12:00 11/02/24 12:05 11/02/24 12:05 Temperature Pulse Rate 92 H Pulse Rate [Right Dorsalis Pedis] Respiratory Rate 13 Blood Pressure 138/92 H 144/93 H Pulse Oximetry 97 Oxygen Delivery Method 11/02/24 12:30 11/02/24 12:30 11/02/24 13:00 Temperature Pulse Rate 89 84 Pulse Rate [Right Dorsalis Pedis] Respiratory Rate 20 24 Blood Pressure 139/94 H Pulse Oximetry 98 98 Oxygen Delivery Method 11/02/24 13:00 11/02/24 13:30 11/02/24 13:30 Temperature Pulse Rate 81 Pulse Rate [Right Dorsalis Pedis] Respiratory Rate 14 Blood Pressure 138/97 H 151/84 H Pulse Oximetry 99 Oxygen Delivery Method 11/02/24 14:00 11/02/24 14:01 11/02/24 14:01 Temperature Pulse Rate 95 H 84 Pulse Rate [Right Dorsalis Pedis] Respiratory Rate Blood Pressure 155/83 H Pulse Oximetry 99 95 Oxygen Delivery Method 11/02/24 15:36 11/02/24 15:39 11/02/24 15:39 Temperature Pulse Rate 67 81 Pulse Rate [Right Dorsalis Pedis] Respiratory Rate 12 Blood Pressure 149/105 H Pulse Oximetry 92 92 Oxygen Delivery Method 11/02/24 16:00 11/02/24 16:00 11/02/24 16:05 Temperature Pulse Rate 85 Pulse Rate [Right Dorsalis Pedis] 80 Respiratory Rate 26 H Blood Pressure 140/82 Pulse Oximetry 99 Oxygen Delivery Method MDM - Extremity (Nontraumatic) Lab Data 11/02/24 12:20 11/02/24 12:20 Labs: Lab Results 11/02/24 11/02/24 Range/Units 12:20 14:00 WBC 5.1 (4.5-11.0) X10^3/uL RBC 3.48 L (4.5-5.9) X10^6/uL Hgb 11.6 L (13.5-17.5) g/dL Hct 33.9 L (41-53) % MCV 97.4 (80-100) fL MCH 33.4 (26-34) PG MCHC 34.3 (30-36) % RDW 13.8 (11.6-14.8) % Plt Count 132 L (150-400) X10^3/uL Neut % (Auto) 68.9 (50-75) % Lymph % (Auto) 14.8 L (25-40) % [place] % (Auto) 14.6 H (3-14) % Eos % (Auto) 0.5 L (2-4) % Baso % (Auto) 1.2 (0-2) % Neut # (Auto) 3500 (0318-7848) /uL Lymph # (Auto) 800 L (1891-5400) /uL [place] # (Auto) 700 (0-900) /uL Eos # (Auto) 0 (0-450) /uL Baso # (Auto) 100 (0-100) /uL PT 12.4 (9.4-12.5) SECONDS INR 1.1 (0.9-1.3) APTT 32 (25.1-36.5) SECONDS Sodium 137 (137-145) mmol/L Potassium 5.3 H (3.4-5.1) mmol/L Chloride 103 (98-107) mmol/L Carbon Dioxide 25 (22-32) mmol/L BUN 29 H (9-20) mg/dL Creatinine 1.14 (0.66-1.25) mg/dL Estimated GFR > 60 (>60) mL/min BUN/Creatinine Ratio 25.4 H (6-22) Glucose 120 H (80-110) mg/dL Lactate 1.8 (0.7-2.1) mmol/L Calcium 8.8 (8.4-10.2) mg/dL Total Bilirubin 0.9 (0.2-1.3) mg/dL AST 125 H (17-59) IU/L ALT 86 H (<50) IU/L Alkaline Phosphatase 109 (38-126) U/L Total Protein 8.5 H (6.3-8.2) g/dL Albumin 4.1 (3.5-5.0) g/dL Globulin 4.4 H (1.7-4.1) g/dL Albumin/Globulin Ratio 0.9 L (1.0-2.8) Lipase 401 H (23-300) U/L Procalcitonin 0.323 (<0.5) ng/mL Urine RBC 10-30/hpf H (0-5/HPF) Urine WBC 0-1/hpf (0-5/HPF) Ur Squamous Epith Cells 0-1 /hpf (0-5/HPF) Urine Bacteria None seen (None) Ur Culture Indicated? Cult not indicated Vol Urine Centrifuged 10ml (spun) Urine Dip Bedside Urine Glucose Negative Bedside Urine Bilirubin - Negative Bedside Urine Ketone - Negative Urine Specific [place] 1.015 Bedside Urine Occult Blood +++ Bedside Urine pH 6.0 Bedside Urine Protein +/- 15 Bedside Urine Urobilinogen - Negative Bedside Urine Nitrite - Negative Bedside Urine Leukocytes - Negative Esterase Imaging Data Extremity x-ray #1: Radiologist's Impression: IMPRESSION: Bony erosion across the 1st PIP joint, 5th proximal phalanx shaft and distal 5th phalanx. Findings are highly concerning for osteomyelitis. Recommend MRI with contrast. Extremity x-ray #2: Radiologist's Impression: [address] [address] XRay Report Signed Patient: Kartik Swanson MR#: [id number] : 1965 Acct:[id number] Age/Sex: 59 / M Date of Service: 11/02/24 Loc: [facility] Accession Number: [id number] Procedure: XR ankle RT min 3V Ordering Provider: Sami Cedillo PA-C PROCEDURE: XR ANKLE RT MIN 3V INDICATIONS: R ankle pain TECHNIQUE: 3 views of the ankle were acquired. COMPARISON: None. FINDINGS: Bones: No definite acute fractures or dislocations. There is mild distortion at the base of the lateral malleolus likely reflecting prior fracture with healing. Ankle mortise is normally aligned. No suspicious bony lesions. Soft tissues: No tibiotalar joint effusion. Achilles tendon appears normal. IMPRESSION: No acute bony abnormality or significant effusion. Apparent prior lateral malleolar fracture with healing, from the past. Chest x-ray: Radiologist's Impression: [address] [address] XRay Report Signed Patient: Kartik Swanson MR#: [id number] : 1965 Acct:[id number] Age/Sex: 59 / M Date of Service: 11/02/24 Loc: ED Accession Number: [id number] Procedure: XR chest 1V Ordering Provider: Guille Yepez D.O. PROCEDURE: XR CHEST 1V INDICATIONS: suspected sepsis TECHNIQUE: One view of the chest was acquired. COMPARISON: Merged With [facility], , XR CHEST 1V, 02/01/2022, 17:04. FINDINGS: Surgical changes and devices: None. Lungs and pleura: Lungs are clear. No pleural effusions or pneumothorax. Mediastinum: Mediastinal contours appear normal. Heart size is normal. Bones and chest wall: No suspicious bony lesions. Overlying soft tissues appear unremarkable. IMPRESSION: No acute cardiopulmonary abnormality is seen. ECG Data Interpretation: EKG interpreted ED physician sinus 90 beats per minute QTC 397, normal axis, nonspecific ST changes, no STEMI MDM Narrative Medical decision making narrative: 59-year-old male no significant past medical history comes into the ED from walk-in clinic for evaluation of swelling pain to his right foot. Was seen for persistent/worsening pain swelling and purulent discharge noted to the right foot. Initial x-ray showed concerns for osteomyelitis, patient got MRI here showing 5th proximal phalanx with osteomyelitis with pathological fracture, osteonecrosis of the distal fracture fragment, avascular necrosis of the 2nd 3rd and 4th metatarsal head with diffuse reactive marrow edema extending to the proximal diaphysis. Patient was given prophylactic vancomycin cefepime. 1612: Discussed case with orthopedic surgeon Dr. Kirkland, states that he agrees with the current workup states he agrees with the current workup at this time, however he states that if patient needs surgical intervention this is not able to be handled here by the orthopedic surgeons therefore is requesting consultation with the Podiatry. 1632: I had a discussion with Dr. Chicas (podiatry at [facility]) who states that he would not accept the transfer at this time, he states that [facility] and the orthopedic surgery team here is more than capable of taking/treating this patient. 1639: I discussed the case with the Dr. Archer in regards to the need for patient to be admitted and possible surgical intervention, he states that he will reach back out with further instructions/recommendations given the fact that [facility] podiatry has refused the transfer and that Orthopedic surgery is stating that they can not ?handle this patient here. 1655: The patient's management plan was discussed Dr. Archer, who agrees to admit the patient to their service and assumes care of this patient at this time. Full admission orders will be placed by the primary team. Discharge Plan Departure Patient Disposition: Admitted As Inpatient Clinical Impression: Osteomyelitis, Avascular necrosis of bone of foot
--- NOTE | 2024-11-02 11:49 | DI.MRI.S_ITS ---
PROCEDURE: MR FOOT RT WO/W CON INDICATIONS: xr concerning for osteo TECHNIQUE: Multiphasic, multisequence MRI of the forefoot was performed, before and after intravenous contrast administration. COMPARISON: [facility], CR, XR FOOT RT MIN 3V, 11/02/2024, 10:30. FINDINGS: Image quality: Excellent. Bones and joints: Erosion of the 1st interphalangeal joint with associated diffuse marrow edema, concerning for septic arthritis/osteomyelitis versus erosive arthropathy in the right clinical setting. No significant effusion within the 1st interphalangeal joint. Avascular necrosis of the 2nd metatarsal head. Diffuse marrow edema of the 2nd metatarsal head, extending to the proximal diaphysis proximally, without confluent T1 hypointensity, nonspecific may represent reactive marrow edema. Avascular necrosis of the 3rd and 4th metatarsal head, with diffuse marrow edema extending into the proximal diaphysis and without confluent T1 hypointensity, nonspecific and may represent reactive marrow edema. Diffuse reactive marrow edema of the 5th metatarsal, without confluent T1 hypointensity, favor reactive. There is erosion and pathologic fracture of the 5th proximal phalanx, and the 5th mid and distal phalanx, concerning for osteomyelitis. Osseous fusion of the 5th mid and distal phalanx. Pathologic fracture of the 5th proximal phalanx with osteonecrosis of the distal fracture fragment. Soft tissues: Thickening of the central cord of the plantar fascia, partially visualized, concerning for plantar fasciitis. The flexor, and the extensor tendons are grossly unremarkable. Diffuse muscle edema with severe fatty atrophy, nonspecific. Small soft tissue ulceration about the 5th proximal phalanx, with 7 millimeter fluid collection in the deep subcutaneous fat (10:17). IMPRESSION: 1. Small soft tissue ulceration about the 5th proximal phalanx, with 7 mm fluid collection in the deep subcutaneous fat. Subjacent osteomyelitis of the 5th proximal phalanx with pathologic fracture, and osteomyelitis of the 5th mid and distal phalanx. Osteonecrosis of the distal fracture fragment of the 5th proximal phalanx. 2. Septic arthritis/osteomyelitis versus erosive arthropathy about the 1st interphalangeal joint. 3. Avascular necrosis of the 2nd, 3rd, and 4th metatarsal head with diffuse reactive marrow edema extending to the proximal diaphysis. Superimposed osteomyelitis of the 2nd, 3rd, and 4th metatarsal head cannot be excluded. Dictated by: Mague Craft M.D. on 11/02/2024 at 15:20 Approved by: Mague Craft M.D. on 11/02/2024 at 15:33
[2024-11-02] MEDS: CEFEPIME 2 GM in SODIUM CHLORIDE 0.9% 100 ML IV (12:30)
[2024-11-02] MEDS: SODIUM CHLORIDE 0.9% 1,000 ML 1000 ML IV (12:30)
[2024-11-02 12:37] LABS: Add Manual Diff / Slide Review NO; Basophils Absolute Auto 100 /uL (0-100); Basophils Percent Auto 1.2 % (0-2); Eosinophils Absolute Auto 0 /uL (0-450); Eosinophils Percent Auto 0.5 % (2-4); Hematocrit 33.9 % (41-53); Hemoglobin 11.6 g/dL (13.5-17.5); Lymphocytes Absolute Auto 800 /uL (1100-4500); Lymphocytes Percent Auto 14.8 % (25-40); Mean Corpuscular HGB Conc 34.3 % (30-36); Mean Corpuscular Hemoglobin 33.4 PG (26-34); Mean Corpuscular Volume 97.4 fL (80-100); Monocytes Absolute Auto 700 /uL (0-900); Monocytes Percent Auto 14.6 % (3-14); Neutrophils Absolute Auto 3500 /uL (1500-7000); Neutrophils Percent Auto 68.9 % (50-75); Platelet Count 132 X10^3/uL (150-400); Red Blood Cell Count 3.48 X10^6/uL (4.5-5.9); Red Cell Distribution Width 13.8 % (11.6-14.8); White Blood Cell Count 5.1 X10^3/uL (4.5-11.0)
[2024-11-02 12:44] LABS: INR 1.1 (0.9-1.3); Prothrombin Time 12.4 SECONDS (9.4-12.5)
--- NOTE | 2024-11-02 12:44 | PC.NURSE ---
Delay OF IV due to pt very anxious, did not want IV due to fear of needles. Charge aware.
[2024-11-02 12:47] LABS: PTT Partial Thromboplastin Tim 32 SECONDS (25.1-36.5)
[2024-11-02 12:49] LABS: Alanine Aminotransferase 86 IU/L (<50); Albumin 4.1 g/dL (3.5-5.0); Albumin Globulin Ratio 0.9 (1.0-2.8); Alkaline Phosphatase 109 U/L (38-126); Aspartate Aminotransferase 125 IU/L (17-59); BUN Creatinine Ratio 25.4 (6-22); Bilirubin Total 0.9 mg/dL (0.2-1.3); Blood Urea Nitrogen 29 mg/dL (9-20); Calcium 8.8 mg/dL (8.4-10.2); Carbon Dioxide 25 mmol/L (22-32); Chloride 103 mmol/L (98-107); Estimated Glomerular Filt Rate > 60 mL/min (>60); Globulin 4.4 g/dL (1.7-4.1); Glucose 120 mg/dL (80-110); HEMOLYSIS 62 (0-50); Lipase 401 U/L (23-300); Potassium 5.3 mmol/L (3.4-5.1); Sodium 137 mmol/L (137-145); Total Protein 8.5 g/dL (6.3-8.2)
[2024-11-02 12:50] LABS: Lactate (Lactic Acid) 1.8 mmol/L (0.7-2.1)
[2024-11-02 13:05] LABS: Procalcitonin 0.323 ng/mL (<0.5)
[2024-11-02] MEDS: VANCOMYCIN 2,000 MG/400 ML PIGGYBACK 200 MG IV (13:34)
[2024-11-02 14:24] LABS: Bacteria Urine None Seen; Culture Indicated Urine Cult Not Indicated; RBC Urine 10-30/HPF (0-5/HPF); Squamous Epithelial Cell Urine 0-1 /HPF (0-5/HPF); Urine Volume 10mL (spun); WBC Urine 0-1/HPF (0-5/HPF)
--- NOTE | 2024-11-02 17:13 | CM.IDA ---
Initial DCP Assessment Note Patient is 59 y/o male who presents to ED due to concern for right ankle swelling. Per MRI, patient has osteomylitis and avascular necrosis of foot bone. Patient states his PCP is Dr. Contreras, there is no current record of this in EMR. Patient has [employer] insurance. SENIOR DRAFTER enters room to meet with patient, present in room is patient's s/o Aletha. Patient presents as A/Ox4. Patient endorses he resides in van with s/o, they are waiting on some money from the sale of s/o's family property that will be sell in a few months. It is reported that patient receives food stamps and SSI disability. Patient endorses independence with ADLs and states he does not have his license so he does not drive. It is reported that they receive rides from family. Patient denies any current ETOH use. Patient endorses interest in basic need, food and fdc resources, SENIOR DRAFTER provides these to patient and s/o. Patient endorses preference to d/c back to [place] upon medical clearance and denies interest in HH or SNF. Plan: patient admitted for further medical treatment and evaluation, no DCP needs at this time, DCP to f/u with POC. SU Sheikh Discharge Planning/Care Management CM Discharge Assessment Start: 11/02/24 17:00 Freq: Status: Active Protocol: Document 11/02/24 17:01 LN (Rec: 11/02/24 17:10 LN [id number]) Discharge Planning Assessment Assigned Gaming Worker SU Montoya DPOA/Assigned Designee Name Kimberley Ridley/Life Partner Contact Information [phone] Advance Directives? No Advance Directives on File No History Provided By Patient,Significant Other Has Patient been admitted in last 30 No days? Prior Living Arrangements RV Comment Patient and s/o reside in their van Household Members significant other Type of transporation used prior to Public Transportation admit Comment It is reported that patient and s/o do not have milk driver's licenses and do not drive Independent with ADL's Yes Is patient alert and oriented? Yes Comment Patient denies preference for home health or SNF Discharge Plan Home Referrals Initiated None needed Additional Comment None needed at this time, f/u with POC
--- NOTE | 2024-11-02 18:06 | P.HP_ITS ---
History of Present Illness History of Present Illness Date Patient Seen: 11/02/24 Chief complaint: RT ankle swollen Narrative: The patient was a 59-year-old male with a foot wound. This has been ongoing for least a month and he presented to the urgent care today because of progressive swelling. There were x-rays performed which was concerning for osteomyelitis and he was forwarded to the emergency department. The patient was noted increased swelling recently as well as a purulent discharge. He denies any fevers, or chills. He was not have a history of neuropathy, or diabetes. The patient appears to have a history of PTSD and is extremely needle phobic. He became very anxious when any discussions about a PICC line happened tonight. The patient notes that this all began with a twisting of the ankle type injury that is just progressed. His foot has been hot and there has been drainage is noted above. In fact, the foot is swollen to about 150% the size of his left foot. He has been able to weight bear. PENDING SALE TO [facility] Social History household members: significant other Smoking Status: Former smoker Meds Home Medications and Allergies Home Medications Medication Instructions Recorded Confirmed Type No Known Home Medications 11/02/24 11/02/24 History Allergies Allergy/AdvReac Type Severity Reaction Status Date / Time No Known Drug Allergies Allergy Verified 11/02/24 10:01 Review of Systems Review of Systems Narrative: All else reviewed and otherwise unremarkable except as noted in the history and physical. Exam Vital Signs (past 8 hours): - 11/02/24 11:24 11/02/24 11:48 11/02/24 12:00 Temperature 98.2 F Pulse Rate 115 H 100 H 90 Pulse Rate [Right Dorsalis Pedis] Respiratory Rate 18 23 14 Blood Pressure 138/90 Pulse Oximetry 96 94 97 Oxygen Delivery Method Room Air 11/02/24 12:00 11/02/24 12:05 11/02/24 12:05 Temperature Pulse Rate 92 H Pulse Rate [Right Dorsalis Pedis] Respiratory Rate 13 Blood Pressure 138/92 H 144/93 H Pulse Oximetry 97 Oxygen Delivery Method 11/02/24 12:30 11/02/24 12:30 11/02/24 13:00 Temperature Pulse Rate 89 84 Pulse Rate [Right Dorsalis Pedis] Respiratory Rate 20 24 Blood Pressure 139/94 H Pulse Oximetry 98 98 Oxygen Delivery Method 11/02/24 13:00 11/02/24 13:30 11/02/24 13:30 Temperature Pulse Rate 81 Pulse Rate [Right Dorsalis Pedis] Respiratory Rate 14 Blood Pressure 138/97 H 151/84 H Pulse Oximetry 99 Oxygen Delivery Method 11/02/24 14:00 11/02/24 14:01 11/02/24 14:01 Temperature Pulse Rate 95 H 84 Pulse Rate [Right Dorsalis Pedis] Respiratory Rate Blood Pressure 155/83 H Pulse Oximetry 99 95 Oxygen Delivery Method 11/02/24 15:36 11/02/24 15:39 11/02/24 15:39 Temperature Pulse Rate 67 81 Pulse Rate [Right Dorsalis Pedis] Respiratory Rate 12 Blood Pressure 149/105 H Pulse Oximetry 92 92 Oxygen Delivery Method 11/02/24 16:00 11/02/24 16:00 11/02/24 16:05 Temperature Pulse Rate 85 Pulse Rate [Right Dorsalis Pedis] 80 Respiratory Rate 26 H Blood Pressure 140/82 Pulse Oximetry 99 Oxygen Delivery Method Oxygen Delivery Method Room Air Narrative Exam Narrative: NAD, alert and oriented, fluent speech, calm. Normocephalic skull, EOMI, anicteric sclera, symmetric pupils. Oropharynx unremarkable, no droop. Neck supple, midline trachea, no adenopathy. Lungs clear, normal rate and effort. Heart regular, no murmur gallop or rub. Abdomen is soft, non distended and non tender. Extremities are free of edema. Skin is free of rash or lesions. Joints are not swollen or deformed. Judgment appears to be normal. Objective ECG Impression: Normal sinus rhythm Septal infarct , age undetermined Imaging Multiple studies:: Radiologist's impression: Foot MRI: 1. Small soft tissue ulceration about the 5th proximal phalanx, with 7 mm fluid collection in the deep subcutaneous fat. Subjacent osteomyelitis of the 5th proximal phalanx with pathologic fracture, and osteomyelitis of the 5th mid and distal phalanx. Osteonecrosis of the distal fracture fragment of the 5th proximal phalanx. 2. Septic arthritis/osteomyelitis versus erosive arthropathy about the 1st interphalangeal joint. 3. Avascular necrosis of the 2nd, 3rd, and 4th metatarsal head with diffuse reactive marrow edema extending to the proximal diaphysis. Superimposed osteomyelitis of the 2nd, 3rd, and 4th metatarsal head cannot be excluded. Chest x-ray: No acute cardiopulmonary abnormality is seen. Foot x-ray: Bony erosion across the 1st PIP joint, 5th proximal phalanx shaft and distal 5th phalanx. Findings are highly concerning for osteomyelitis. Recommend MRI with contrast. Ankle x-ray: No acute bony abnormality or significant effusion. Apparent prior lateral malleolar fracture with healing, from the past. Labs 11/02/24 12:20 11/02/24 12:20 Labs: Laboratory Results - last 24 hr 11/02/24 11/02/24 12:20 14:00 WBC 5.1 RBC 3.48 L Hgb 11.6 L Hct 33.9 L MCV 97.4 MCH 33.4 MCHC 34.3 RDW 13.8 Plt Count 132 L Neut % (Auto) 68.9 Lymph % (Auto) 14.8 L [place] % (Auto) 14.6 H Eos % (Auto) 0.5 L Baso % (Auto) 1.2 Neut # (Auto) 3500 Lymph # (Auto) 800 L [place] # (Auto) 700 Eos # (Auto) 0 Baso # (Auto) 100 PT 12.4 INR 1.1 APTT 32 Sodium 137 Potassium 5.3 H Chloride 103 Carbon Dioxide 25 BUN 29 H Creatinine 1.14 Estimated GFR > 60 BUN/Creatinine Ratio 25.4 H Glucose 120 H Lactate 1.8 Calcium 8.8 Total Bilirubin 0.9 AST 125 H ALT 86 H Alkaline Phosphatase 109 Total Protein 8.5 H Albumin 4.1 Globulin 4.4 H Albumin/Globulin Ratio 0.9 L Lipase 401 H Procalcitonin 0.323 Urine RBC 10-30/hpf H Urine WBC 0-1/hpf Ur Squamous Epith Cells 0-1 /hpf Urine Bacteria None seen Ur Culture Indicated? Cult not indicated Vol Urine Centrifuged 10ml (spun) Assessment & Plan Assessment & Plan narrative: Right foot infection with concern for osteomyelitis, present on admission and active. Imaging indicates soft tissue infection as well as probable osteomyelitis of the 5th proximal phalanx with a pathologic fracture as well as the 5th mid and distal phalanx. There is also concern for septic arthritis and osteomyelitis above the 1st interphalangeal joint and possible osteomyelitis of the 2nd, 3rd, and 4th metatarsal heads. Plan: -IV antibiotics and cultures. We will start with Zosyn and vancomycin. -wound culture as noted -PICC for access -discuss with Podiatry at [facility] tomorrow and have them review imaging. Time-Based Coding :: 35 min spent with patient and on the chart (including review of chart, obtaining history, exam, reviewing outside data, placing orders, documenting exam and treatment plan, and counseling patient) on 11/02. Quality MIPS - Admit The patient?s Advance Care plan is not present because I confirmed today that the patient does not wish or was not able to name a surrogate decision maker or provide an Advance Care Plan.: Yes MIPS - Meds 'Current medications' to include all prescriptions, [id number] products, herbals, cannabis/cannabidiol products, and vitamin/mineral/dietary (nutritional) supplements. I have utilized all available resources to obtain, update, or review the patient?s current medications. [If Yes, STOP here]: Yes
[2024-11-02] MEDS: OXYCODONE IR 5 MG TABLET PO ×2 (18:20→23:38)
[2024-11-02] MEDS: PIPERACILLIN/TAZO 4.5 GM in SODIUM CHLORIDE 0.9% 100 ML IV (18:20)
[2024-11-02] MEDS: PIPERACILLIN/TAZO 3.375 GM in SODIUM CHLORIDE 0.9% 100 ML IV (23:32)
[2024-11-03] MEDS: VANCOMYCIN 1,000 MG/200 ML PIGGYBACK 200 MG IV ×2 (01:27→12:29)
[2024-11-03 05:08] LABS: Add Manual Diff / Slide Review NO; Basophils Absolute Auto 0 /uL (0-100); Basophils Percent Auto 0.9 % (0-2); Eosinophils Absolute Auto 100 /uL (0-450); Hematocrit 32.3 % (41-53); Hemoglobin 11.1 g/dL (13.5-17.5); Lymphocytes Absolute Auto 1000 /uL (1100-4500); Lymphocytes Percent Auto 30.3 % (25-40); Mean Corpuscular HGB Conc 34.4 % (30-36); Mean Corpuscular Hemoglobin 33.5 PG (26-34); Mean Corpuscular Volume 97.5 fL (80-100); Monocytes Absolute Auto 500 /uL (0-900); Monocytes Percent Auto 15.5 % (3-14); Neutrophils Absolute Auto 1600 /uL (1500-7000); Neutrophils Percent Auto 51.3 % (50-75); Platelet Count 114 X10^3/uL (150-400); Red Blood Cell Count 3.32 X10^6/uL (4.5-5.9); Red Cell Distribution Width 13.7 % (11.6-14.8); White Blood Cell Count 3.1 X10^3/uL (4.5-11.0)
[2024-11-03 05:19] LABS: BUN Creatinine Ratio 20.5 (6-22); Blood Urea Nitrogen 27 mg/dL (9-20); Calcium 8.5 mg/dL (8.4-10.2); Carbon Dioxide 20 mmol/L (22-32); Chloride 106 mmol/L (98-107); Estimated Glomerular Filt Rate > 60 mL/min (>60); Glucose 96 mg/dL (80-110); HEMOLYSIS < 15 (0-50); Sodium 135 mmol/L (137-145)
[2024-11-03] MEDS: PIPERACILLIN/TAZO 3.375 GM in SODIUM CHLORIDE 0.9% 100 ML IV ×3 (06:08→21:29)
--- NOTE | 2024-11-03 07:43 | P.PN_ITS ---
Subjective Subjective Interval history: Summary: The patient was a 59-year-old male with a foot wound. This has been ongoing for least a month and he presented to the urgent care today because of progressive swelling. There were x-rays performed which was concerning for osteomyelitis and he was forwarded to the emergency department. The patient was noted increased swelling recently as well as a purulent discharge. He denies any fevers, or chills. He was not have a history of neuropathy, or diabetes. The patient appears to have a history of PTSD and is extremely needle phobic. He became very anxious when any discussions about a PICC line happened tonight. The patient notes that this all began with a twisting of the ankle type injury that is just progressed. His foot has been hot and there has been drainage is noted above. In fact, the foot is swollen to about 150% the size of his left foot. He has been able to weight bear. S: Exam Vital Signs (past 8 hours): Oxygen Delivery Method Room Air Narrative Exam Narrative: NAD, alert and oriented. Fluent speech. Lungs are clear, normal rate and effort. Heart is regular, no murmur gallop or rub. Abdomen is soft, non distended. Extremities are free of edema. Objective Labs 11/03/24 04:39 11/03/24 04:39 Labs: Laboratory Results - last 24 hr 11/02/24 11/02/24 11/03/24 12:20 14:00 04:39 WBC 5.1 3.1 L RBC 3.48 L 3.32 L Hgb 11.6 L 11.1 L Hct 33.9 L 32.3 L MCV 97.4 97.5 MCH 33.4 33.5 MCHC 34.3 34.4 RDW 13.8 13.7 Plt Count 132 L 114 L Neut % (Auto) 68.9 51.3 Lymph % (Auto) 14.8 L 30.3 [place] % (Auto) 14.6 H 15.5 H Eos % (Auto) 0.5 L 2.0 Baso % (Auto) 1.2 0.9 Neut # (Auto) 3500 1600 Lymph # (Auto) 800 L 1000 L [place] # (Auto) 700 500 Eos # (Auto) 0 100 Baso # (Auto) 100 0 PT 12.4 INR 1.1 APTT 32 Sodium 137 135 L Potassium 5.3 H 4.0 D Chloride 103 106 Carbon Dioxide 25 20 L BUN 29 H 27 H Creatinine 1.14 1.32 H Estimated GFR > 60 > 60 BUN/Creatinine Ratio 25.4 H 20.5 Glucose 120 H 96 Lactate 1.8 Calcium 8.8 8.5 Total Bilirubin 0.9 AST 125 H ALT 86 H Alkaline Phosphatase 109 Total Protein 8.5 H Albumin 4.1 Globulin 4.4 H Albumin/Globulin Ratio 0.9 L Lipase 401 H Procalcitonin 0.323 Urine RBC 10-30/hpf H Urine WBC 0-1/hpf Ur Squamous Epith Cells 0-1 /hpf Urine Bacteria None seen Ur Culture Indicated? Cult not indicated Vol Urine Centrifuged 10ml (spun) [facility] Social History household members: significant other Smoking Status: Former smoker alcohol intake: current Assessment & Plan Assessment & Plan narrative: 1. Right foot infection with concern for osteomyelitis, present on admission and active. Imaging indicates soft tissue infection as well as probable osteomyelitis of the 5th proximal phalanx with a pathologic fracture as well as the 5th mid and distal phalanx. There is also concern for septic arthritis and osteomyelitis above the 1st interphalangeal joint and possible osteomyelitis of the 2nd, 3rd, and 4th metatarsal heads. Plan: -IV antibiotics and cultures. We will start with Zosyn and vancomycin. -wound culture as noted -PICC for access -discuss with Podiatry at [facility] tomorrow and have them review imaging. Time-Based Coding :: [TOTAL MINUTES] spent with patient and on the chart (including review of chart, obtaining history, exam, reviewing outside data, placing orders, documenting exam and treatment plan, and counseling patient) on [DATE]. Quality VTE Deep Vein Thrombosis/Pulmonary Embolism Present on Admission: No
[2024-11-03 08:00] VITALS: BP 148/89; PULSE 75; RESP 20; TEMP 36.5; O2SAT 99
--- NOTE | 2024-11-03 11:18 | P.DS_ITS ---
History of Present Illness History of Present Illness Chief complaint: RT ankle swollen Narrative: The patient was a 59-year-old male with a foot wound. This has been ongoing for least a month and he presented to the urgent care today because of progressive swelling. There were x-rays performed which was concerning for osteomyelitis and he was forwarded to the emergency department. The patient was noted increased swelling recently as well as a purulent discharge. He denies any fevers, or chills. He was not have a history of neuropathy, or diabetes. The patient appears to have a history of PTSD and is extremely needle phobic. He became very anxious when any discussions about a PICC line happened tonight. The patient notes that this all began with a twisting of the ankle type injury that is just progressed. His foot has been hot and there has been drainage is noted above. In fact, the foot is swollen to about 150% the size of his left foot. He has been able to weight bear. Discharge Providers Provider Date of admission: 11/02/24 16:55 Primary care physician: Doctor Fransico MD Consults: 11/02/24 11:34 Consult to [facility] - Dental Technician Apprentice Stat Comment: Dental Technician Apprentice Consult needed for:: Homeless Comment: lives in [place]. has not gotten monthly check from [employer]. Discharge provider: Papi Archer MD Exam Vital Signs (past 8 hours): - 11/03/24 08:00 Temperature 97.7 F Pulse Rate 75 Respiratory Rate 20 Blood Pressure 148/89 H Pulse Oximetry 99 Oxygen Flow Rate 0 Oxygen Delivery Method Room Air Oxygen Flow Rate 0 Objective Labs 11/03/24 04:39 11/03/24 04:39 Labs: Laboratory Results - last 24 hr 11/02/24 11/02/24 11/03/24 12:20 14:00 04:39 WBC 5.1 3.1 L RBC 3.48 L 3.32 L Hgb 11.6 L 11.1 L Hct 33.9 L 32.3 L MCV 97.4 97.5 MCH 33.4 33.5 MCHC 34.3 34.4 RDW 13.8 13.7 Plt Count 132 L 114 L Neut % (Auto) 68.9 51.3 Lymph % (Auto) 14.8 L 30.3 [place] % (Auto) 14.6 H 15.5 H Eos % (Auto) 0.5 L 2.0 Baso % (Auto) 1.2 0.9 Neut # (Auto) 3500 1600 Lymph # (Auto) 800 L 1000 L [place] # (Auto) 700 500 Eos # (Auto) 0 100 Baso # (Auto) 100 0 PT 12.4 INR 1.1 APTT 32 Sodium 137 135 L Potassium 5.3 H 4.0 D Chloride 103 106 Carbon Dioxide 25 20 L BUN 29 H 27 H Creatinine 1.14 1.32 H Estimated GFR > 60 > 60 BUN/Creatinine Ratio 25.4 H 20.5 Glucose 120 H 96 Lactate 1.8 Calcium 8.8 8.5 Total Bilirubin 0.9 AST 125 H ALT 86 H Alkaline Phosphatase 109 Total Protein 8.5 H Albumin 4.1 Globulin 4.4 H Albumin/Globulin Ratio 0.9 L Lipase 401 H Procalcitonin 0.323 Urine RBC 10-30/hpf H Urine WBC 0-1/hpf Ur Squamous Epith Cells 0-1 /hpf Urine Bacteria None seen Ur Culture Indicated? Cult not indicated Vol Urine Centrifuged 10ml (spun) [facility] Social History household members: significant other Smoking Status: Former smoker alcohol intake: current Discharge Plan Discharge orders & Medications Prescriptions: No Action No Known Home Medications Follow up/Referrals: Doctor Bateman MD [Primary Care Provider] - Visit Report/Discharge Packet Instructions: Osteomyelitis, Peripherally Inserted Central Catheter Discharge Data Primary Care Provider: Doctor rFansico Quality VTE Deep Vein Thrombosis/Pulmonary Embolism Present on Admission: No
[2024-11-03] MEDS: ACETAMINOPHEN 325 MG TABLET 650 MG PO (11:34)
--- NOTE | 2024-11-03 12:14 | PM.PN.1 ---
Subjective Subjective Interval history: Summary: He was admitted with a right foot infection. Imaging indicates a significant soft tissue infection and possible osteomyelitis. Orthopedics was called from the ED and recommended IV antibiotics. Imaging was also run by Podiatry at [facility] who indicated that a incision and drainage is likely going to be needed. S: His foot feels better today, it is less swollen and painful. Exam Vital Signs (past 8 hours): - 11/03/24 08:00 Temperature 97.7 F Pulse Rate 75 Respiratory Rate 20 Blood Pressure 148/89 H Pulse Oximetry 99 Oxygen Flow Rate 0 Oxygen Delivery Method Room Air Oxygen Flow Rate 0 Narrative Exam Narrative: NAD, alert and oriented. Fluent speech. Lungs are clear, normal rate and effort. Heart is regular, no murmur gallop or rub. Abdomen is soft, non distended. Extremities are free of edema. Right foot is still swollen and warm. There is a small ulceration on the pad of the foot. It was not tender to palpation in the swelling has decreased. Objective Imaging Multiple studies:: Radiologist's impression: Foot MRI: 1. Small soft tissue ulceration about the 5th proximal phalanx, with 7 mm fluid collection in the deep subcutaneous fat. Subjacent osteomyelitis of the 5th proximal phalanx with pathologic fracture, and osteomyelitis of the 5th mid and distal phalanx. Osteonecrosis of the distal fracture fragment of the 5th proximal phalanx. 2. Septic arthritis/osteomyelitis versus erosive arthropathy about the 1st interphalangeal joint. 3. Avascular necrosis of the 2nd, 3rd, and 4th metatarsal head with diffuse reactive marrow edema extending to the proximal diaphysis. Superimposed osteomyelitis of the 2nd, 3rd, and 4th metatarsal head cannot be excluded. Chest x-ray: No acute cardiopulmonary abnormality is seen. Foot x-ray: Bony erosion across the 1st PIP joint, 5th proximal phalanx shaft and distal 5th phalanx. Findings are highly concerning for osteomyelitis. Recommend MRI with contrast. Ankle x-ray: No acute bony abnormality or significant effusion. Apparent prior lateral malleolar fracture with healing, from the past. Labs 11/03/24 04:39 11/03/24 04:39 Labs: Laboratory Results - last 24 hr 11/02/24 11/02/24 11/03/24 12:20 14:00 04:39 WBC 5.1 3.1 L RBC 3.48 L 3.32 L Hgb 11.6 L 11.1 L Hct 33.9 L 32.3 L MCV 97.4 97.5 MCH 33.4 33.5 MCHC 34.3 34.4 RDW 13.8 13.7 Plt Count 132 L 114 L Neut % (Auto) 68.9 51.3 Lymph % (Auto) 14.8 L 30.3 [place] % (Auto) 14.6 H 15.5 H Eos % (Auto) 0.5 L 2.0 Baso % (Auto) 1.2 0.9 Neut # (Auto) 3500 1600 Lymph # (Auto) 800 L 1000 L [place] # (Auto) 700 500 Eos # (Auto) 0 100 Baso # (Auto) 100 0 PT 12.4 INR 1.1 APTT 32 Sodium 137 135 L Potassium 5.3 H 4.0 D Chloride 103 106 Carbon Dioxide 25 20 L BUN 29 H 27 H Creatinine 1.14 1.32 H Estimated GFR > 60 > 60 BUN/Creatinine Ratio 25.4 H 20.5 Glucose 120 H 96 Lactate 1.8 Calcium 8.8 8.5 Total Bilirubin 0.9 AST 125 H ALT 86 H Alkaline Phosphatase 109 Total Protein 8.5 H Albumin 4.1 Globulin 4.4 H Albumin/Globulin Ratio 0.9 L Lipase 401 H Procalcitonin 0.323 Urine RBC 10-30/hpf H Urine WBC 0-1/hpf Ur Squamous Epith Cells 0-1 /hpf Urine Bacteria None seen Ur Culture Indicated? Cult not indicated Vol Urine Centrifuged 10ml (spun) [facility] Social History household members: significant other Smoking Status: Former smoker alcohol intake: current Assessment & Plan Assessment & Plan narrative: 1. Right foot infection with concern for osteomyelitis, present on admission and active. Imaging indicates soft tissue infection as well as probable osteomyelitis of the 5th proximal phalanx with a pathologic fracture as well as the 5th mid and distal phalanx. There is also concern for septic arthritis and osteomyelitis above the 1st interphalangeal joint and possible osteomyelitis of the 2nd, 3rd, and 4th metatarsal heads. Plan: -IV antibiotics and cultures. We will start with Cefepime and vancomycin. -wound culture as noted -Ortho consult requested (they were initially called from the emergency department, recommended IV antibiotics). -podiatry at [facility] did review imaging today and indicates incision and drainage is indicated. Orthopedics was Re contacted. Time-Based Coding :: [TOTAL MINUTES] spent with patient and on the chart (including review of chart, obtaining history, exam, reviewing outside data, placing orders, documenting exam and treatment plan, and counseling patient) on [DATE]. Quality VTE Deep Vein Thrombosis/Pulmonary Embolism Present on Admission: No
[2024-11-03] MEDS: polyethylene glycoL 3350 17 GM POWD.PACK PO (12:27)
[2024-11-03] MEDS: OXYCODONE IR 5 MG TABLET PO ×3 (13:48→21:30)
--- NOTE | 2024-11-03 21:01 | PM.CN ---
History of Present Illness Consult details Date Patient Seen: 11/03/24 Time Patient Seen: 20:45 Chief complaint: RT ankle swollen Narrative: 59 year old gentleman with a long history of osteomyelitis to his right foot. Has been getting outpatient wound care and was seen in the emergency room yesterday and admitted. Unable to examine the patient today, he was not in his room when I went by to consult. We will plan on trying again tomorrow. Meds Home Medications and Allergies Home Medications Medication Instructions Recorded Confirmed Type No Known Home Medications 11/02/24 11/02/24 History Allergies Allergy/AdvReac Type Severity Reaction Status Date / Time No Known Drug Allergies Allergy Verified 11/02/24 10:01 Exam Vital Signs (past 8 hours): Oxygen Delivery Method Room Air Oxygen Flow Rate 0 Objective Labs 11/03/24 04:39 11/03/24 04:39 Labs: Laboratory Results - last 24 hr 11/03/24 04:39 WBC 3.1 L RBC 3.32 L Hgb 11.1 L Hct 32.3 L MCV 97.5 MCH 33.5 MCHC 34.4 RDW 13.7 Plt Count 114 L Neut % (Auto) 51.3 Lymph % (Auto) 30.3 [place] % (Auto) 15.5 H Eos % (Auto) 2.0 Baso % (Auto) 0.9 Neut # (Auto) 1600 Lymph # (Auto) 1000 L [place] # (Auto) 500 Eos # (Auto) 100 Baso # (Auto) 0 Sodium 135 L Potassium 4.0 D Chloride 106 Carbon Dioxide 20 L BUN 27 H Creatinine 1.32 H Estimated GFR > 60 BUN/Creatinine Ratio 20.5 Glucose 96 Calcium 8.5 PFSH Social History household members: significant other Tobacco & Substance Use Smoking Status: Former smoker alcohol intake: current Assessment & Plan Assessment & Plan narrative: Patient was not in his room so was unable to evaluate his foot. Based on the progress note sounds like his swelling has improved with the IV antibiotics. Would recommend continuing the IV antibiotics. We will discuss the case with our foot and ankle specialist to get ideas of what they think the next best plan is. But that might not be until Wednesday. Time-Based Coding :: [TOTAL MINUTES] spent with patient and on the chart (including review of chart, obtaining history, exam, reviewing outside data, placing orders, documenting exam and treatment plan, and counseling patient) on [DATE].
[2024-11-03 21:18] VITALS: BP 140/76; PULSE 84; RESP 19; TEMP 36.4; O2SAT 96
--- NOTE | 2024-11-03 21:19 | P.CONS_ITS ---
History of Present Illness Consult details Date Patient Seen: 11/03/24 Time Patient Seen: 21:19 Chief complaint: RT ankle swollen Narrative: Patient was in his room this time around and was able to see the patient. Gives a history of what he states was a twisting injury to his ankle. That happened about a month ago and this resulted in quite a bit of swelling to the foot and the ankle. Developed a ulcer on the small toe. Gives a gives a history of a ulcer to the big toe in the past that healed well with antibiotics. Was hoping the small toe would do the same. Was still having quite a bit of swelling and was seen in urgent care. X-rays showed signs of osteomyelitis and patient was sent to the emergency room based on those findings. Meds Home Medications and Allergies Home Medications Medication Instructions Recorded Confirmed Type No Known Home Medications 11/02/24 11/02/24 History Allergies Allergy/AdvReac Type Severity Reaction Status Date / Time No Known Drug Allergies Allergy Verified 11/02/24 10:01 Exam Vital Signs (past 8 hours): Oxygen Delivery Method Room Air Oxygen Flow Rate 0 Narrative Exam Narrative: On exam no sign of any cellulitis. No sign of any redness or streaking. Patient does have swelling to the foot compared to the left side. No sign of any drainage. Patient states the swelling has gone down since being on the IV antibiotics. Is able to bear weight. On palpation no sign of any fluctuance. Unable to express any purulence. No tenderness to palpation throughout the entire foot except for some mild tenderness to the small toe. Patient had an MRI findings listed below. Small soft tissue ulceration about the 5th proximal phalanx, with 7 mm fluid collection in the deep subcutaneous fat. Subjacent osteomyelitis of the 5th proximal phalanx with pathologic fracture, and osteomyelitis of the 5th mid and distal phalanx. Osteonecrosis of the distal fracture fragment of the 5th proximal phalanx. 2. Septic arthritis/osteomyelitis versus erosive arthropathy about the 1st interphalangeal joint. 3. Avascular necrosis of the 2nd, 3rd, and 4th metatarsal head with diffuse reactive marrow edema extending to the proximal diaphysis. Superimposed osteomyelitis of the 2nd, 3rd, and 4th metatarsal head cannot be excluded. Objective Labs 11/03/24 04:39 11/03/24 04:39 Labs: Laboratory Results - last 24 hr 11/03/24 04:39 WBC 3.1 L RBC 3.32 L Hgb 11.1 L Hct 32.3 L MCV 97.5 MCH 33.5 MCHC 34.4 RDW 13.7 Plt Count 114 L Neut % (Auto) 51.3 Lymph % (Auto) 30.3 Christian % (Auto) 15.5 H Eos % (Auto) 2.0 Baso % (Auto) 0.9 Neut # (Auto) 1600 Lymph # (Auto) 1000 L Christian # (Auto) 500 Eos # (Auto) 100 Baso # (Auto) 0 Sodium 135 L Potassium 4.0 D Chloride 106 Carbon Dioxide 20 L BUN 27 H Creatinine 1.32 H Estimated GFR > 60 BUN/Creatinine Ratio 20.5 Glucose 96 Calcium 8.5 PFSH Social History household members: significant other Tobacco & Substance Use Smoking Status: Former smoker alcohol intake: current Assessment & Plan Assessment & Plan narrative: On exam patient has signs of chronic osteomyelitis involving the foot. No sign of any significant acute process noted on today's visit. Patient will eventually require more definitive treatment for the osteomyelitis but that can be done on an outpatient basis. Would recommend continuing with IV antibiotics since he has already noticed a significant improvement in the amount of swelling. Patient is not showing any sign of any sepsis. Would recommend follow-up with Podiatry once discharged. Time-Based Coding :: [TOTAL MINUTES] spent with patient and on the chart (including review of chart, obtaining history, exam, reviewing outside data, placing orders, documenting exam and treatment plan, and counseling patient) on [DATE].
[2024-11-04] MEDS: VANCOMYCIN 1,000 MG/200 ML PIGGYBACK 200 MG IV ×2 (00:53→14:00)
[2024-11-04] MEDS: OXYCODONE IR 5 MG TABLET PO ×6 (00:59→21:01)
[2024-11-04 05:20] LABS: Add Manual Diff / Slide Review NO; Basophils Absolute Auto 0 /uL (0-100); Basophils Percent Auto 1.3 % (0-2); Eosinophils Absolute Auto 100 /uL (0-450); Eosinophils Percent Auto 2.4 % (2-4); Hematocrit 32.9 % (41-53); Hemoglobin 11.4 g/dL (13.5-17.5); Lymphocytes Absolute Auto 1100 /uL (1100-4500); Mean Corpuscular HGB Conc 34.8 % (30-36); Mean Corpuscular Hemoglobin 33.7 PG (26-34); Mean Corpuscular Volume 96.8 fL (80-100); Monocytes Absolute Auto 500 /uL (0-900); Monocytes Percent Auto 12.9 % (3-14); Neutrophils Absolute Auto 1900 /uL (1500-7000); Neutrophils Percent Auto 53.4 % (50-75); Platelet Count 147 X10^3/uL (150-400); Red Cell Distribution Width 13.5 % (11.6-14.8); White Blood Cell Count 3.6 X10^3/uL (4.5-11.0)
[2024-11-04 05:34] LABS: BUN Creatinine Ratio 21.7 (6-22); Blood Urea Nitrogen 28 mg/dL (9-20); Calcium 8.9 mg/dL (8.4-10.2); Carbon Dioxide 20 mmol/L (22-32); Chloride 105 mmol/L (98-107); Estimated Glomerular Filt Rate > 60 mL/min (>60); Glucose 98 mg/dL (80-110); HEMOLYSIS 29 (0-50); Potassium 4.3 mmol/L (3.4-5.1); Sodium 134 mmol/L (137-145)
[2024-11-04] MEDS: PIPERACILLIN/TAZO 3.375 GM in SODIUM CHLORIDE 0.9% 100 ML IV ×3 (06:15→22:50)
[2024-11-04 07:00] VITALS: BP 127/86; PULSE 79; RESP 18; TEMP 36.5; O2SAT 98
[2024-11-04] MEDS: ACETAMINOPHEN 325 MG TABLET 650 MG PO ×2 (08:31→17:35)
[2024-11-04] MEDS: polyethylene glycoL 3350 17 GM POWD.PACK PO (08:32)
--- NOTE | 2024-11-04 11:22 | P.PN_ITS ---
Subjective Subjective Interval history: Kartik is a 59 year old male who is seen today for evaluation of his R foot. Today he reports his pain is improved from yesterday, he also feels his swelling has gone down some. He is currently getting IV abx. He states the pain is mild at rest, becomes more moderate with extended weight bearing. He also reports getting shooting pains that shoot from mid foot to his toes occasionally. Patient had an MRI findings listed below. Small soft tissue ulceration about the 5th proximal phalanx, with 7 mm fluid collection in the deep subcutaneous fat. Subjacent osteomyelitis of the 5th proximal phalanx with pathologic fracture, and osteomyelitis of the 5th mid and distal phalanx. Osteonecrosis of the distal fracture fragment of the 5th proximal phalanx. 2. Septic arthritis/osteomyelitis versus erosive arthropathy about the 1st interphalangeal joint. 3. Avascular necrosis of the 2nd, 3rd, and 4th metatarsal head with diffuse reactive marrow edema extending to the proximal diaphysis. Superimposed osteomyelitis of the 2nd, 3rd, and 4th metatarsal head cannot be excluded. Exam Vital Signs (past 8 hours): - 11/04/24 07:00 Temperature 97.7 F Pulse Rate 79 Respiratory Rate 18 Blood Pressure 127/86 Pulse Oximetry 98 Oxygen Flow Rate 0 Oxygen Delivery Method Room Air Oxygen Flow Rate 0 Narrative Exam Narrative: Patient does have significant swelling to the right foot compared to the left side. On exam no sign of any acute cellulitis. No sign of any redness or streaking. No sign of any purulent drainage, unable to express any purulence. On palpation no sign of any fluctuance. No tenderness to palpation throughout the entire foot except for some mild tenderness to the small toe. Notes some decreased sensation of his little toe, otherwise gross sensation intact. Objective Labs 11/04/24 05:03 11/04/24 05:03 Labs: Laboratory Results - last 24 hr 11/04/24 05:03 WBC 3.6 L RBC 3.40 L Hgb 11.4 L Hct 32.9 L MCV 96.8 MCH 33.7 MCHC 34.8 RDW 13.5 Plt Count 147 L Neut % (Auto) 53.4 Lymph % (Auto) 30.0 Gosper % (Auto) 12.9 Eos % (Auto) 2.4 Baso % (Auto) 1.3 Neut # (Auto) 1900 Lymph # (Auto) 1100 [place] # (Auto) 500 Eos # (Auto) 100 Baso # (Auto) 0 Sodium 134 L Potassium 4.3 Chloride 105 Carbon Dioxide 20 L BUN 28 H Creatinine 1.29 H Estimated GFR > 60 BUN/Creatinine Ratio 21.7 Glucose 98 Calcium 8.9 PFSH Social History household members: significant other Smoking Status: Former smoker alcohol intake: current Assessment & Plan Assessment and plan (1) Avascular necrosis of bone of foot: Status: Acute (2) Osteomyelitis: Qualifiers: Osteomyelitis type: chronic multifocal Osteomyelitis location: foot L aterality: right Qualified Code(s): M86.371 - Chronic multifocal osteomyelitis, right ankle and foot Status: Acute Assessment & Plan narrative: 1) Continue IV abx, currently gettin Zosyn and Vanco. Preliminary blood cultures with no growth so far. 2) Recommend podiatry f/u for more definitive treatment of his chronic osteomyelitis involving the right foot. 3) Will continue to monitor for any s/s of worsening osteomyelitis or cellulitis that may need more urgent surgical intervention. 4) WBAT. Quality VTE Deep Vein Thrombosis/Pulmonary Embolism Present on Admission: No
[2024-11-04] MEDS: VANCOMYCIN TROUGH 1 REQUEST MISC (13:40)
[2024-11-04 13:57] LABS: Vancomycin Trough 16.3 ug/mL (10-20)
[2024-11-04] MEDS: VANCOMYCIN PEAK 1 REQUEST MISC (15:27)
[2024-11-04 16:25] LABS: Vancomycin Peak 45.4 ug/mL (20-40)
--- NOTE | 2024-11-04 18:08 | PM.PN.1 ---
Subjective Subjective Interval history: 59 yo w/alcohol dependence, COPD, hx tobacco dependence admitted w/osteomyelitis R 5th toe and cellulitis of R foot, initiated on Zosyn/vanc. Patient reports his foot is feeling a bit better today. He states the edema feels softer. He states that his foot is less painful to walk on. Before, he noted pain was moderate at rest and more severe with walking. Now he states the pain is mild at rest and moderate with walking. He does not have an outpatient flight test mechanic. He and his note that it is difficult to get transportation and they would prefer a flight test mechanic here in [place]. Exam Vital Signs (past 8 hours): Oxygen Delivery Method Room Air Oxygen Flow Rate 0 Narrative Exam Narrative: GEN: Middle-aged male who appears older than stated age, Alert and oriented x 3, NAD HEENT:NC, Face symmetric CHEST: Respiratory excursions symmetric, coarse but CTAB CV: RRR, no M/R/G ABD: Soft, NT/ND, BT present in all 4 quadrants, no organomegaly or masses EXTR: warm, well perfused, no C/C/E, right foot reveals mild erythema/warmth, there is moderate deformity to the foot and mild swelling dorsally SKIN: warm and dry, no rash NEURO: Alert and oriented x 3, nonfocal Objective Labs 11/04/24 05:03 11/04/24 05:03 Labs: Laboratory Results - last 24 hr 11/04/24 11/04/24 11/04/24 05:03 13:23 15:27 WBC 3.6 L RBC 3.40 L Hgb 11.4 L Hct 32.9 L MCV 96.8 MCH 33.7 MCHC 34.8 RDW 13.5 Plt Count 147 L Neut % (Auto) 53.4 Lymph % (Auto) 30.0 Lamb % (Auto) 12.9 Eos % (Auto) 2.4 Baso % (Auto) 1.3 Neut # (Auto) 1900 Lymph # (Auto) 1100 Lamb # (Auto) 500 Eos # (Auto) 100 Baso # (Auto) 0 Sodium 134 L Potassium 4.3 Chloride 105 Carbon Dioxide 20 L BUN 28 H Creatinine 1.29 H Estimated GFR > 60 BUN/Creatinine Ratio 21.7 Glucose 98 Calcium 8.9 Vancomycin Peak 45.4 H Vancomycin Trough 16.3 PFSH Social History household members: significant other Smoking Status: Former smoker alcohol intake: current Assessment & Plan Assessment & Plan narrative: 1.??? R foot cellulitis/R 5th digit osteomyelitis Cellulitis is presently improving. He remains on Zosyn and vancomycin. Blood cultures are negative to date. Osteomyelitis is felt to be chronic at this point per Orthopedic surgery. Will need outpatient follow-up with Podiatry. 2.??? Alcohol dependence, presently in remission Per report, patient has not had alcohol in the last 4 months. At this time, he has not showing any symptoms or signs of withdrawal. 3.??? Anemia Mild. Hemoglobin is stable at 11.4. Platelet count is mildly low at 147, which is improved from 114 on admission. 4.??? Elevated lipase on admission Lipase was elevated at 401 on admission. Is not complaining of any abdominal pain, nausea or vomiting. Will monitor for any symptoms or signs of pancreatitis 5.??? Pancytopenia White blood cell count is 3.6, up from 3.1 yesterday. As noted, platelet count is improved. Hemoglobin is noted is also improved. Code status Full Prophylaxis Patient is ambulating frequently Disposition Possibly discharging in the next 24-48 hours Time-Based Coding :: [TOTAL MINUTES] spent with patient and on the chart (including review of chart, obtaining history, exam, reviewing outside data, placing orders, documenting exam and treatment plan, and counseling patient) on [DATE]. Quality VTE Deep Vein Thrombosis/Pulmonary Embolism Present on Admission: No
[2024-11-04 20:00] VITALS: BP 135/88; PULSE 63; RESP 14; TEMP 36.8; O2SAT 99
[2024-11-05] MEDS: VANCOMYCIN 1,000 MG/200 ML PIGGYBACK 200 MG IV (02:03)
[2024-11-05] MEDS: OXYCODONE IR 5 MG TABLET PO ×4 (02:16→20:27)
[2024-11-05 06:17] LABS: Add Manual Diff / Slide Review NO; Basophils Absolute Auto 100 /uL (0-100); Basophils Percent Auto 1.1 % (0-2); Eosinophils Absolute Auto 100 /uL (0-450); Eosinophils Percent Auto 2.1 % (2-4); Hematocrit 34.2 % (41-53); Hemoglobin 11.6 g/dL (13.5-17.5); Lymphocytes Absolute Auto 1300 /uL (1100-4500); Lymphocytes Percent Auto 28.9 % (25-40); Mean Corpuscular HGB Conc 33.9 % (30-36); Mean Corpuscular Hemoglobin 33.3 PG (26-34); Mean Corpuscular Volume 98.3 fL (80-100); Monocytes Absolute Auto 400 /uL (0-900); Monocytes Percent Auto 8.7 % (3-14); Neutrophils Absolute Auto 2700 /uL (1500-7000); Neutrophils Percent Auto 59.2 % (50-75); Platelet Count 177 X10^3/uL (150-400); Red Blood Cell Count 3.48 X10^6/uL (4.5-5.9); Red Cell Distribution Width 13.7 % (11.6-14.8); White Blood Cell Count 4.5 X10^3/uL (4.5-11.0)
[2024-11-05] MEDS: PIPERACILLIN/TAZO 3.375 GM in SODIUM CHLORIDE 0.9% 100 ML IV ×3 (06:33→22:00)
[2024-11-05 06:39] LABS: BUN Creatinine Ratio 22.5 (6-22); Blood Urea Nitrogen 31 mg/dL (9-20); Calcium 9.2 mg/dL (8.4-10.2); Carbon Dioxide 21 mmol/L (22-32); Chloride 105 mmol/L (98-107); Estimated Glomerular Filt Rate 59 mL/min (>60); Glucose 87 mg/dL (80-110); HEMOLYSIS < 15 (0-50); Sodium 136 mmol/L (137-145)
[2024-11-05 07:00] VITALS: BP 139/88; PULSE 57; RESP 18; TEMP 36.4; O2SAT 97
[2024-11-05] MEDS: polyethylene glycoL 3350 17 GM POWD.PACK PO (08:35)
--- NOTE | 2024-11-05 09:50 | PM.PN.1 ---
Subjective Subjective Interval history: Patient doing much better today in regards to his right foot. When seen in the room today patient was up and ambulating without any difficulty or any signs of any significant discomfort. Swelling to the right foot has decreased significantly. No sign of any cellulitis. Exam Vital Signs (past 8 hours): Oxygen Delivery Method Room Air Oxygen Flow Rate 0 Narrative Exam Narrative: As stated previously swelling to the foot has decreased quite significantly. No sign of any obvious acute infectious process. Patient is able to weightbear with little difficulty. Objective Labs 11/05/24 05:06 11/05/24 05:06 Labs: Laboratory Results - last 24 hr 11/04/24 11/04/24 11/05/24 13:23 15:27 05:06 WBC 4.5 RBC 3.48 L Hgb 11.6 L Hct 34.2 L MCV 98.3 MCH 33.3 MCHC 33.9 RDW 13.7 Plt Count 177 Neut % (Auto) 59.2 Lymph % (Auto) 28.9 Towns % (Auto) 8.7 Eos % (Auto) 2.1 Baso % (Auto) 1.1 Neut # (Auto) 2700 Lymph # (Auto) 1300 Towns # (Auto) 400 Eos # (Auto) 100 Baso # (Auto) 100 Sodium 136 L Potassium 4.0 Chloride 105 Carbon Dioxide 21 L BUN 31 H Creatinine 1.38 H Estimated GFR 59 L BUN/Creatinine Ratio 22.5 H Glucose 87 Calcium 9.2 Vancomycin Peak 45.4 H Vancomycin Trough 16.3 PFSH Social History household members: significant other Smoking Status: Former smoker alcohol intake: current Assessment & Plan Assessment & Plan narrative: Patient can follow-up with a healthcare corporate account director of his choice upon discharge. No further orthopedic treatment needed at this point. Time-Based Coding :: [TOTAL MINUTES] spent with patient and on the chart (including review of chart, obtaining history, exam, reviewing outside data, placing orders, documenting exam and treatment plan, and counseling patient) on [DATE]. Quality VTE Deep Vein Thrombosis/Pulmonary Embolism Present on Admission: No
--- NOTE | 2024-11-05 10:43 | CM.DPC ---
DCP Cont: Per MD, pt making progress and does not appear to be in a hurry to discharge today but MD updated pt on likely d/c today vs tomorrow pending progress and will need local outpt Podiatry referral as pt and spouse have difficulty with transportation. MD does not anticipate any further needs at discharge at this time. JEFFRY Cole
--- NOTE | 2024-11-05 12:33 | PC.NURSE ---
Patient given oxycodone for comfort, his r.pinky toe is pink and swollen, no leaking noted. Toe is open to air. He complained of 6/10 pain to foot. Oxycodone hepful for discomfort. Patients is at bedside and staying here. They are both homeless and live out of car.
[2024-11-05] MEDS: VANCOMYCIN 1,000 MG in SODIUM CHLORIDE 0.9% 250 ML 250 MG IV (13:24)
--- NOTE | 2024-11-05 15:05 | PM.PN.1 ---
Subjective Subjective Interval history: 59 yo w/alcohol dependence, COPD, hx tobacco dependence admitted w/osteomyelitis R 5th toe and cellulitis of R foot, initiated on Zosyn/vanc. Patient reports his foot is feeling a bit better again today. He states the edema feels softer once again compared to yesterday. He states that his foot is less painful to walk on, but he still describes the pain as moderate. He does not have an outpatient plumbing instructor. He and his note that it is difficult to get transportation and they would prefer a plumbing instructor here in [place]. He does describe pain that radiates down both legs that he describes as sudden and shooting. He wonders what the etiology of that might be. He notes that he and his are presently living in their van secondary to property being under probate. Exam Vital Signs (past 8 hours): Oxygen Delivery Method Room Air Oxygen Flow Rate 0 Narrative Exam Narrative: GEN: Middle-aged male who appears older than stated age, Alert and oriented x 3, NAD HEENT:NC, Face symmetric CHEST: Respiratory excursions symmetric, coarse but CTAB CV: RRR, no M/R/G ABD: Soft, NT/ND, BT present in all 4 quadrants, no organomegaly or masses EXTR: warm, well perfused, no C/C/E, right foot reveals moderate deformity to the foot and mild swelling dorsally SKIN: warm and dry, no rash NEURO: Alert and oriented x 3, nonfocal Objective Labs 11/05/24 05:06 11/05/24 05:06 Labs: Laboratory Results - last 24 hr 11/04/24 11/05/24 15:27 05:06 WBC 4.5 RBC 3.48 L Hgb 11.6 L Hct 34.2 L MCV 98.3 MCH 33.3 MCHC 33.9 RDW 13.7 Plt Count 177 Neut % (Auto) 59.2 Lymph % (Auto) 28.9 [place]ney % (Auto) 8.7 Eos % (Auto) 2.1 Baso % (Auto) 1.1 Neut # (Auto) 2700 Lymph # (Auto) 1300 [place] # (Auto) 400 Eos # (Auto) 100 Baso # (Auto) 100 Sodium 136 L Potassium 4.0 Chloride 105 Carbon Dioxide 21 L BUN 31 H Creatinine 1.38 H Estimated GFR 59 L BUN/Creatinine Ratio 22.5 H Glucose 87 Calcium 9.2 Vancomycin Peak 45.4 H [facility] Social History household members: significant other Smoking Status: Former smoker alcohol intake: current Assessment & Plan Assessment & Plan narrative: 1.??? R foot cellulitis/R 5th digit osteomyelitis Cellulitis is presently improving. He remains on Zosyn and vancomycin. Blood cultures are negative to date. Osteomyelitis is felt to be chronic at this point per Orthopedic surgery. Will need outpatient follow-up with Podiatry. 2.??? Alcohol dependence, presently in remission Per report, patient has not had alcohol in the last 4 months. At this time, he has not showing any symptoms or signs of withdrawal. 3.??? Anemia Mild and stable. 4.??? Elevated lipase on admission Lipase was elevated at 401 on admission. Is not complaining of any abdominal pain, nausea or vomiting. Will monitor for any symptoms or signs of pancreatitis 5.??? Pancytopenia White blood cell count is 3.6, up from 3.1 yesterday. As noted, platelet count is improved. Hemoglobin is noted is also improved. Code status Full Prophylaxis Patient is ambulating frequently Disposition Patient could have discharge today, but does feel comfortable doing so. He requests discharge tomorrow as he feels he needs another day of IV antibiotics. Time-Based Coding :: [TOTAL MINUTES] spent with patient and on the chart (including review of chart, obtaining history, exam, reviewing outside data, placing orders, documenting exam and treatment plan, and counseling patient) on [DATE]. Quality VTE Deep Vein Thrombosis/Pulmonary Embolism Present on Admission: No
[2024-11-05 19:00] VITALS: BP 137/87; PULSE 60; RESP 18; TEMP 36.5; O2SAT 98
[2024-11-06] MEDS: VANCOMYCIN 1,000 MG in SODIUM CHLORIDE 0.9% 250 ML 250 MG IV ×2 (00:58→12:40)
[2024-11-06] MEDS: OXYCODONE IR 5 MG TABLET PO ×4 (01:27→20:16)
[2024-11-06] MEDS: PIPERACILLIN/TAZO 3.375 GM in SODIUM CHLORIDE 0.9% 100 ML IV ×3 (06:44→22:40)
[2024-11-06 08:00] VITALS: BP 132/90; PULSE 60; RESP 18; TEMP 36.3; O2SAT 100
[2024-11-06] MEDS: ACETAMINOPHEN 325 MG TABLET 650 MG PO (08:27)
[2024-11-06 09:30] VITALS: BP 96/55
[2024-11-06 09:47] LABS: MRSA (Nasal) PCR NOT DETECTED (Not Detect)
--- NOTE | 2024-11-06 12:32 | CM.DPNOTE ---
DCP note PACKAGING DESIGNER reviewed EMR. Per provider in morning rounds, likely dc today on PO abx. per team in morning rounds, pt had expressed concerns about getting transportation to OP f/u appts. PACKAGING DESIGNER spoke with Memo from [facility], confirm pt has Medicaid transportation benefits, has not set them up yet. PACKAGING DESIGNER entered room and introduced self and role. Pt with spouse at bedside. PACKAGING DESIGNER provided pt information on Medicaid transport benefit to OP appts/information on how to start it. Pt thankful and reports he will do that for his OP F/u appts. Reports he would rather stay another night but if provider were to dc him today, he would be in agreement but he couldn't be picked up until 5pm. Denies other questions or needs from this CM at this time. PACKAGING DESIGNER updated RN. P: dc today with OP podiatry f/u recommended. CM team will continue to follow as needed JEFFRY Jimenez
--- NOTE | 2024-11-06 13:19 | PM.PN.1 ---
Subjective Subjective Interval history: Summary: 59 yo w/alcohol dependence, COPD, hx tobacco dependence admitted w/osteomyelitis R 5th toe and cellulitis of R foot, initiated on Zosyn/vanc. Patient reports his foot is feeling a bit better again today. He states the edema feels softer once again compared to yesterday. He states that his foot is less painful to walk on, but he still describes the pain as moderate. He does not have an outpatient metallurgical engineer. He and his note that it is difficult to get transportation and they would prefer a metallurgical engineer here in [place]. He does describe pain that radiates down both legs that he describes as sudden and shooting. He wonders what the etiology of that might be. He notes that he and his are presently living in their van secondary to property being under probate. S: He will be ready to discharge on November 07. He was foot is improving on a daily basis. He notes that his initial ulceration and injury to the foot began probably 4-5 months ago in the this infection likely has been somewhat active over that entire course of time. Orthopedics did review this and diagnosed this is a chronic osteomyelitis and did recommended outpatient follow up with Podiatry. Exam Vital Signs (past 8 hours): - 11/06/24 08:00 11/06/24 09:30 Temperature 97.3 F L Pulse Rate 60 Respiratory Rate 18 Blood Pressure 132/90 96/55 L Pulse Oximetry 100 Oxygen Flow Rate 0 Oxygen Delivery Method Room Air Oxygen Flow Rate 0 Narrative Exam Narrative: NAD, alert and oriented. Fluent speech. Lungs are clear, normal rate and effort. Heart is regular, no murmur gallop or rub. Abdomen is soft, non distended. Extremities are free of edema. Right foot is much less swollen, red, and warm. Objective Labs 11/05/24 05:06 11/05/24 05:06 Labs: Laboratory Results - last 24 hr 11/06/24 08:32 Nasal Screen MRSA (PCR) Not detected [facility] Social History household members: significant other Smoking Status: Former smoker alcohol intake: current Assessment & Plan Assessment & Plan narrative: 1.??? R foot cellulitis/R 5th digit osteomyelitis, present on admission and improved. Cellulitis is presently improving. He remains on Zosyn and vancomycin. Blood cultures are negative to date. Osteomyelitis is felt to be chronic at this point per Orthopedic surgery. Will need outpatient follow-up with Podiatry. 2.??? Alcohol dependence, presently in remission, stable. Per report, patient has not had alcohol in the last 4 months. At this time, he has not showing any symptoms or signs of withdrawal. 3.??? Anemia, stable. Mild and stable. 4.??? Elevated lipase on admission, present on admission and improved. Lipase was elevated at 401 on admission. Is not complaining of any abdominal pain, nausea or vomiting. Will monitor for any symptoms or signs of pancreatitis 5.??? Pancytopenia, stable. White blood cell count is 3.6, up from 3.1 yesterday. As noted, platelet count is improved. Hemoglobin is noted is also improved. Plan: -anticipate discharge on November 07 and oral antibiotics, likely can be doxycycline 100 b.i.d., we will give him 2 weeks. -recommended that he follow up with Dr. Delong at [facility]. Time-Based Coding :: [TOTAL MINUTES] spent with patient and on the chart (including review of chart, obtaining history, exam, reviewing outside data, placing orders, documenting exam and treatment plan, and counseling patient) on [DATE]. Quality VTE Deep Vein Thrombosis/Pulmonary Embolism Present on Admission: No
[2024-11-06 20:00] VITALS: BP 141/95; PULSE 70; RESP 19; TEMP 36.1; O2SAT 95
[2024-11-07] MEDS: VANCOMYCIN 1,000 MG in SODIUM CHLORIDE 0.9% 250 ML 250 MG IV ×2 (01:39→13:45)
[2024-11-07] MEDS: OXYCODONE IR 5 MG TABLET PO ×4 (01:50→21:18)
[2024-11-07] MEDS: PIPERACILLIN/TAZO 3.375 GM in SODIUM CHLORIDE 0.9% 100 ML IV ×3 (05:55→23:28)
[2024-11-07] MEDS: ACETAMINOPHEN 325 MG TABLET 650 MG PO ×2 (09:19→14:57)
[2024-11-07 10:00] VITALS: BP 129/85; PULSE 74; RESP 20; TEMP 36.5; O2SAT 99
[2024-11-07 13:04] LABS: Vancomycin Trough 19.2 ug/mL (10-20)
--- NOTE | 2024-11-07 16:03 | CM.DPNOTE ---
DCP Note CHECKOUT OPERATOR reviewed EMR Per provider in morning rounds, may change the IV abx plan for him. may want pt to have a few weeks of IV abx. Plan unknown as of 1600 today. P: DCP pending IV abx plan vs dc home with PO abx and OP podiatry f/u. CM team will continue to follow closely for coordination as needed JEFFRY Jimenez
[2024-11-07 16:38] LABS: Vancomycin Peak 31.2 ug/mL (20-40)
--- NOTE | 2024-11-07 19:38 | PM.PN.1 ---
Subjective Subjective Interval history: Summary: 59 yo w/alcohol dependence, COPD, hx tobacco dependence admitted w/osteomyelitis R 5th toe and cellulitis of R foot, initiated on Zosyn/vanc. S: His foot continues to improve today with antibiotic therapy. He still has some pain with ambulation Exam Vital Signs (past 8 hours): Oxygen Delivery Method Room Air Oxygen Flow Rate 0 Narrative Exam Narrative: NAD, alert and oriented. Fluent speech. Lungs are clear, normal rate and effort. Heart is regular, no murmur gallop or rub. Abdomen is soft, non distended. Extremities are free of edema. Right foot is much less swollen, red, and warm. Objective Labs 11/05/24 05:06 11/05/24 05:06 Labs: Laboratory Results - last 24 hr 11/07/24 11/07/24 12:30 16:10 Vancomycin Peak 31.2 Vancomycin Trough 19.2 PFSH Social History household members: significant other Smoking Status: Former smoker alcohol intake: current Assessment & Plan Assessment & Plan narrative: 1.??? R foot cellulitis/R 5th digit osteomyelitis, present on admission and improved. Cellulitis is presently improving. He remains on Zosyn and vancomycin. Blood cultures are negative to date. Osteomyelitis is felt to be chronic at this point per Orthopedic surgery. Will need outpatient follow-up with Podiatry. Given presentation and current recurrence, will discuss with infectious disease provider to see if they recommend prolonged IV antibiotic therapy given presentation and MRI findings. 2.??? Alcohol dependence, presently in remission, stable. Per report, patient has not had alcohol in the last 4 months. At this time, he has not showing any symptoms or signs of withdrawal. 3.??? Anemia, stable. Mild and stable. 4.??? Elevated lipase on admission, present on admission and improved. Lipase was elevated at 401 on admission. Is not complaining of any abdominal pain, nausea or vomiting. Will monitor for any symptoms or signs of pancreatitis 5.??? Pancytopenia, stable. White blood cell count is 3.6, up from 3.1 yesterday. As noted, platelet count is improved. Hemoglobin is noted is also improved. Plan: -discuss with infectious disease provider prior to discharge, repeat labs including ESR/CRP tomorrow, -recommended that he follow up with Dr. Delong at [facility]. Time-Based Coding :: [TOTAL MINUTES] spent with patient and on the chart (including review of chart, obtaining history, exam, reviewing outside data, placing orders, documenting exam and treatment plan, and counseling patient) on [DATE]. Quality VTE Deep Vein Thrombosis/Pulmonary Embolism Present on Admission: No
[2024-11-07 20:00] VITALS: BP 133/87; PULSE 77; RESP 18; TEMP 36.1; O2SAT 99
[2024-11-08] VITALS: BP 143/93; PULSE 89; RESP 18; TEMP 36.9; O2SAT 96
[2024-11-08] MEDS: VANCOMYCIN 1,000 MG in SODIUM CHLORIDE 0.9% 250 ML 250 MG IV (01:32)
[2024-11-08] MEDS: OXYCODONE IR 5 MG TABLET PO ×5 (01:33→21:59)
[2024-11-08] MEDS: PIPERACILLIN/TAZO 3.375 GM in SODIUM CHLORIDE 0.9% 100 ML IV ×3 (06:05→21:20)
[2024-11-08 06:10] LABS: Add Manual Diff / Slide Review NO; Basophils Absolute Auto 100 /uL (0-100); Basophils Percent Auto 1.8 % (0-2); Eosinophils Absolute Auto 100 /uL (0-450); Eosinophils Percent Auto 2.4 % (2-4); Hemoglobin 11.9 g/dL (13.5-17.5); Lymphocytes Absolute Auto 1200 /uL (1100-4500); Lymphocytes Percent Auto 25.8 % (25-40); Mean Corpuscular HGB Conc 34.1 % (30-36); Mean Corpuscular Hemoglobin 33.5 PG (26-34); Mean Corpuscular Volume 98.3 fL (80-100); Monocytes Absolute Auto 500 /uL (0-900); Monocytes Percent Auto 9.8 % (3-14); Neutrophils Absolute Auto 2900 /uL (1500-7000); Neutrophils Percent Auto 60.2 % (50-75); Platelet Count 204 X10^3/uL (150-400); Red Blood Cell Count 3.56 X10^6/uL (4.5-5.9); Red Cell Distribution Width 13.8 % (11.6-14.8); White Blood Cell Count 4.8 X10^3/uL (4.5-11.0)
[2024-11-08 06:22] LABS: C-Reactive Protein Quant 0.5 mg/dL (<1.0); Creatine Kinase 44 U/L (55-170)
[2024-11-08 07:02] LABS: Alanine Aminotransferase 145 IU/L (<50); Albumin 3.6 g/dL (3.5-5.0); Albumin Globulin Ratio 0.9 (1.0-2.8); Alkaline Phosphatase 75 U/L (38-126); Aspartate Aminotransferase 153 IU/L (17-59); BUN Creatinine Ratio 22.1 (6-22); Bilirubin Total 0.4 mg/dL (0.2-1.3); Blood Urea Nitrogen 30 mg/dL (9-20); Calcium 8.8 mg/dL (8.4-10.2); Carbon Dioxide 19 mmol/L (22-32); Chloride 108 mmol/L (98-107); Estimated Glomerular Filt Rate 60 mL/min (>60); Globulin 3.8 g/dL (1.7-4.1); Glucose 89 mg/dL (80-110); HEMOLYSIS 17 (0-50); Potassium 4.3 mmol/L (3.4-5.1); Sodium 136 mmol/L (137-145); Total Protein 7.4 g/dL (6.3-8.2)
[2024-11-08 07:49] LABS: Erythrocyte Sedimentation Rate 58 MM/HR (0-15)
[2024-11-08 08:00] VITALS: BP 139/88; PULSE 69; RESP 18; TEMP 36.2; O2SAT 99
[2024-11-08] MEDS: SODIUM CHLORIDE 0.9% FLUSH 10 ML IV ×2 (09:00→21:30)
--- NOTE | 2024-11-08 14:19 | CM.DPNOTE ---
DCP note SENIOR CYBER SECURITY ANALYST reviewed EMR. Per provider, Dr. Villegas reviewed the imaging and agrees pt likely needs longer course of IV abx. ID provdier agrees with Dr. Isaacs that it's likely acute and not chronic osteo. Wants biopsy for cultures from ortho provider for the IV abx plan. Anywhere from one week to six weeks will be needed. If IV abx, provider reports he is unsure if [facility] will agree to follow him in OP setting for home infusion/coming into infusion clinic due to hx of substance abuse (PMH of alcohol abuse, has been successfully sober for 4 months, no signs of withdrawal this admission). SENIOR CYBER SECURITY ANALYST met with pt and spouse in room. Reviewed that another provider has been consulted and the Abx plan is unknown at this time. explained that our job is to assist with the process and we do our best to take pt's preferences into consideration but due to a few different factors it could result in a plan that pt would not prefer. pt expressed understanding, reports he doesn't want to go somewhere else for weeks and would be willing to come into the infusion clinic daily/prefer that over going to another facility. P: Pending IV abx coordination, waiting on biopsy of foot for further planning. pt preference is if termite control servicer IV needed, to come to clinic daily. CM team will continue to follow closely JEFFRY Jimenez
--- NOTE | 2024-11-08 16:15 | P.PN_ITS ---
Subjective Subjective Interval history: Summary: 59 yo w/alcohol dependence, COPD, hx tobacco dependence admitted w/osteomyelitis R 5th toe and cellulitis of R foot, initiated on Zosyn/vanc. S: His foot continues to improve today with antibiotic therapy. He still has some pain with ambulation Exam Vital Signs (past 8 hours): Oxygen Delivery Method Room Air Oxygen Flow Rate 0 Narrative Exam Narrative: NAD, alert and oriented. Fluent speech. Lungs are clear, normal rate and effort. Heart is regular, no murmur gallop or rub. Abdomen is soft, non distended. Extremities are free of edema. Right foot is much less swollen, red, and warm. Objective Labs 11/08/24 05:03 11/08/24 05:03 Labs: Laboratory Results - last 24 hr 11/07/24 11/08/24 16:10 05:03 WBC 4.8 RBC 3.56 L Hgb 11.9 L Hct 35.0 L MCV 98.3 MCH 33.5 MCHC 34.1 RDW 13.8 Plt Count 204 Neut % (Auto) 60.2 Lymph % (Auto) 25.8 [place] % (Auto) 9.8 Eos % (Auto) 2.4 Baso % (Auto) 1.8 Neut # (Auto) 2900 Lymph # (Auto) 1200 [place] # (Auto) 500 Eos # (Auto) 100 Baso # (Auto) 100 ESR 58 H Sodium 136 L Potassium 4.3 Chloride 108 H Carbon Dioxide 19 L BUN 30 H Creatinine 1.36 H Estimated GFR 60 BUN/Creatinine Ratio 22.1 H Glucose 89 Calcium 8.8 Total Bilirubin 0.4 AST 153 H ALT 145 H Alkaline Phosphatase 75 Total Creatine Kinase 44 L C-Reactive Protein 0.5 Total Protein 7.4 Albumin 3.6 Globulin 3.8 Albumin/Globulin Ratio 0.9 L Vancomycin Peak 31.2 PFSH Social History household members: significant other Smoking Status: Former smoker alcohol intake: current Assessment & Plan Assessment & Plan narrative: 1.??? R foot cellulitis/R 5th digit osteomyelitis, present on admission and improved. Cellulitis is presently improving. He remains on Zosyn and vancomycin. Blood cultures are negative to date. Osteomyelitis is felt to be chronic at this point per Orthopedic surgery. Discussed with infectious disease who thought treatment for osteomyelitis is reasonable as well. Will see if podiatry is able to consult for bone biopsy so that antibiotics can possibly be narrowed. 2.??? Alcohol dependence, presently in remission, stable. Per report, patient has not had alcohol in the last 4 months. At this time, he has not showing any symptoms or signs of withdrawal. 3.??? Anemia, stable. Mild and stable. 4.??? Elevated lipase on admission, present on admission and improved. Lipase was elevated at 401 on admission. Is not complaining of any abdominal pain, nausea or vomiting. Will monitor for any symptoms or signs of pancreatitis 5.??? Pancytopenia, stable. White blood cell count is 3.6, up from 3.1 yesterday. As noted, platelet count is improved. Hemoglobin is noted is also improved. Plan: -discussed with infectious disease provider, recommended podiatry / second orthopedic opinion given MRI findings which seem consistent with osteomyelitis which would ideally treat with 6 weeks of antibiotics. -outpatient referral was sent to infectious disease. Time-Based Coding :: [TOTAL MINUTES] spent with patient and on the chart (including review of chart, obtaining history, exam, reviewing outside data, placing orders, documenting exam and treatment plan, and counseling patient) on [DATE]. Quality VTE Deep Vein Thrombosis/Pulmonary Embolism Present on Admission: No
[2024-11-08] MEDS: VANCOMYCIN 750 MG in SODIUM CHLORIDE 0.9% 250 ML 166.667 MG IV (18:53)
[2024-11-08 20:00] VITALS: BP 138/94; PULSE 61; RESP 18; TEMP 36.7; O2SAT 99
[2024-11-09] MEDS: OXYCODONE IR 5 MG TABLET PO ×5 (01:59→19:56)
[2024-11-09] MEDS: VANCOMYCIN 750 MG in SODIUM CHLORIDE 0.9% 250 ML 166.66 MG IV ×2 (05:09→18:49)
[2024-11-09 05:49] LABS: Add Manual Diff / Slide Review NO; Basophils Absolute Auto 100 /uL (0-100); Basophils Percent Auto 2.9 % (0-2); Eosinophils Absolute Auto 100 /uL (0-450); Eosinophils Percent Auto 2.4 % (2-4); Hematocrit 35.6 % (41-53); Hemoglobin 12.1 g/dL (13.5-17.5); Lymphocytes Absolute Auto 1400 /uL (1100-4500); Lymphocytes Percent Auto 27.4 % (25-40); Mean Corpuscular Hemoglobin 33.5 PG (26-34); Mean Corpuscular Volume 98.6 fL (80-100); Monocytes Absolute Auto 400 /uL (0-900); Monocytes Percent Auto 7.1 % (3-14); Neutrophils Absolute Auto 3100 /uL (1500-7000); Neutrophils Percent Auto 60.2 % (50-75); Platelet Count 216 X10^3/uL (150-400); Red Blood Cell Count 3.61 X10^6/uL (4.5-5.9); Red Cell Distribution Width 13.9 % (11.6-14.8); White Blood Cell Count 5.1 X10^3/uL (4.5-11.0)
[2024-11-09 06:16] LABS: Alanine Aminotransferase 161 IU/L (<50); Albumin 3.8 g/dL (3.5-5.0); Albumin Globulin Ratio 0.9 (1.0-2.8); Alkaline Phosphatase 80 U/L (38-126); Aspartate Aminotransferase 146 IU/L (17-59); BUN Creatinine Ratio 21.5 (6-22); Bilirubin Total 0.3 mg/dL (0.2-1.3); Blood Urea Nitrogen 31 mg/dL (9-20); Carbon Dioxide 18 mmol/L (22-32); Chloride 109 mmol/L (98-107); Estimated Glomerular Filt Rate 56 mL/min (>60); Globulin 4.3 g/dL (1.7-4.1); Glucose 92 mg/dL (80-110); HEMOLYSIS < 15 (0-50); Potassium 4.2 mmol/L (3.4-5.1); Sodium 137 mmol/L (137-145); Total Protein 8.1 g/dL (6.3-8.2)
[2024-11-09 07:00] VITALS: BP 125/84; PULSE 67; RESP 19; TEMP 36.4; O2SAT 97
[2024-11-09] MEDS: PIPERACILLIN/TAZO 3.375 GM in SODIUM CHLORIDE 0.9% 100 ML IV ×3 (07:34→20:39)
--- NOTE | 2024-11-09 10:20 | CM.DPC ---
Addendum entered by JEFFRY Cole 11/09/24 15:57: ADD: Return call from Rishabh at [facility] and he states that pt has full coverage for home infusion abx through his [employer] in case home infusion needed at d/c. BF Original Note: DCP IV Abx Cont: Per MD, potential chance of pt getting seen by Ortho Electric Motor Fitter Dr. Noyola tomorrow Wednesday for further consultation and maybe biopsy cultures to better determine IV-Abx need. If Ortho cannot consult on patient tomorrow, then further discussion with ID to determine possible PO abx vs IV abx at d/c and outpt follow up. SALO contacted [facility] and discussed pt status and referral in case pt discharges with once a day IV-Abx. [facility] able to run IV-Abx through [employer] once the specific medication determined to figure out if [employer] prior auth needed, if auth needed then they can obtain the auth (barrier is that the [facility]fusion [facility] is not tomorrow Wed or the weekend). SALO made initial referral to [facility] to review and run pt's [employer] (although currently pt on Piperacillan Q8 and Vanco Q12 and this could definitely change) in case home infusion needed at d/c. SW updated Rishabh and faxed clinicals to review. Plan: SW to follow closely for potential Ortho Electric Motor Fitter consult tomorrow Wednesday and ongoing discussion with [facility] to determine d/c on PO vs IV antibiotics. If home infusion needed, confirmation that medication could be stored in Dtr's fridge since pt and Sig Other stay in their van in Dtr's driveway. Remote hx of ETOH, pt sober at least 4 months and no symptoms of withdrawal while admitted. JEFFRY Cole
--- NOTE | 2024-11-09 17:40 | PM.PN.1 ---
Subjective Subjective Interval history: Summary: 59 yo w/alcohol dependence, COPD, hx tobacco dependence admitted w/osteomyelitis R 5th toe and cellulitis of R foot, initiated on Zosyn/vanc. S: His foot continues to improve today with antibiotic therapy. He still has some pain with ambulation Exam Vital Signs (past 8 hours): Oxygen Delivery Method Room Air Oxygen Flow Rate 0 Narrative Exam Narrative: NAD, alert and oriented. Fluent speech. Lungs are clear, normal rate and effort. Heart is regular, no murmur gallop or rub. Abdomen is soft, non distended. Extremities are free of edema. Right foot is much less swollen, red, and warm. Objective Labs 11/09/24 05:01 11/09/24 05:01 Labs: Laboratory Results - last 24 hr 11/09/24 05:01 WBC 5.1 RBC 3.61 L Hgb 12.1 L Hct 35.6 L MCV 98.6 MCH 33.5 MCHC 34.0 RDW 13.9 Plt Count 216 Neut % (Auto) 60.2 Lymph % (Auto) 27.4 [place] % (Auto) 7.1 Eos % (Auto) 2.4 Baso % (Auto) 2.9 H Neut # (Auto) 3100 Lymph # (Auto) 1400 [place] # (Auto) 400 Eos # (Auto) 100 Baso # (Auto) 100 Sodium 137 Potassium 4.2 Chloride 109 H Carbon Dioxide 18 L BUN 31 H Creatinine 1.44 H Estimated GFR 56 L BUN/Creatinine Ratio 21.5 Glucose 92 Calcium 9.0 Total Bilirubin 0.3 AST 146 H ALT 161 H Alkaline Phosphatase 80 Total Protein 8.1 Albumin 3.8 Globulin 4.3 H Albumin/Globulin Ratio 0.9 L PFSH Social History household members: significant other Smoking Status: Former smoker alcohol intake: current Assessment & Plan Assessment & Plan narrative: 1.??? R foot cellulitis/R 5th digit osteomyelitis, present on admission and improved. Cellulitis is presently improving. He remains on Zosyn and vancomycin. Blood cultures are negative to date. Osteomyelitis is felt to be chronic per initial orthopedic surgery evaluation. Discussed with infectious disease who thought treatment for osteomyelitis is reasonable. Extensive discussion with orthopedic provider today, customs inspector is willing to consult tomorrow for bone biopsy and management, but was told no OR availability and orthopedic provider is not available until next week. Will make patient NPO tonight in case that bone biopsy / culture procurement can be obtained tomorrow. 2.??? Alcohol dependence, presently in remission, stable. Per report, patient has not had alcohol in the last 4 months. At this time, he has not showing any symptoms or signs of withdrawal. 3.??? Anemia, stable. Mild and stable. 4.??? Elevated lipase on admission, present on admission and improved. Lipase was elevated at 401 on admission. Is not complaining of any abdominal pain, nausea or vomiting. Will monitor for any symptoms or signs of pancreatitis 5.??? Pancytopenia, stable. White blood cell count is 3.6, up from 3.1 yesterday. As noted, platelet count is improved. Hemoglobin is noted is also improved. Plan: -discussed with infectious disease provider, recommended podiatry / second orthopedic opinion given MRI findings which seem consistent with osteomyelitis which would ideally treat with 6 weeks of antibiotics. -outpatient referral was sent to infectious disease. Time-Based Coding :: [TOTAL MINUTES] spent with patient and on the chart (including review of chart, obtaining history, exam, reviewing outside data, placing orders, documenting exam and treatment plan, and counseling patient) on [DATE]. Quality VTE Deep Vein Thrombosis/Pulmonary Embolism Present on Admission: No
[2024-11-09] MEDS: ACETAMINOPHEN 325 MG TABLET 650 MG PO (19:57)
[2024-11-09 20:00] VITALS: BP 129/90; PULSE 74; RESP 16; TEMP 36.5; O2SAT 99
[2024-11-09] MEDS: SODIUM CHLORIDE 0.9% FLUSH 10 ML IV (20:39)
[2024-11-10] VITALS (11 sets, daily range): BP systolic 112–145; BP diastolic 76–95; PULSE 55–87; RESP 14–20; TEMP 36–36.9; O2SAT 96–100; BMI 19.8
--- NOTE | 2024-11-10 | PATH_ITS ---
[facility] Accession Number: [id number] No. of containers..01 Tissue . 01 Material submitted: . toe - RIGHT 5TH TOE . 01 Diagnosis: RIGHT FIFTH TOE, BIOPSY: Trabecular bone fragments with features of acute osteomyelitis. [facility] 11/13/2024 1559 Local . 01 Electronically signed: . Sandy Mcgrath MD, Pathologist NPI- [id number] . 01 Gross description: . Received in formalin, labeled with two patient identifiers and right fifth toe, are two ling fragments of possible skin measuring 0.6 x 0.6 x 0.2 cm and 0.6 x 0.3 x 0.2 cm. The smaller fragment is inked blue and submitted intact in cassette A1. The larger fragment is inked green, bisected, and submitted entirely in cassette A1 as well. ([id number]) /FRR 11/11/20245 Local . 01 Pathologist provided ICD-10: M86.9 . 01 CPT . 531893 Specimen Comment: A courtesy copy of this report has been sent to [phone] Performed at: [address] [id number] MD Uriel Obrien MD Phone: [phone]
[2024-11-10] MEDS: OXYCODONE IR 5 MG TABLET PO ×5 (00:14→20:31)
[2024-11-10 05:39] LABS: Add Manual Diff / Slide Review NO; Basophils Absolute Auto 100 /uL (0-100); Basophils Percent Auto 2.5 % (0-2); Eosinophils Absolute Auto 100 /uL (0-450); Eosinophils Percent Auto 2.2 % (2-4); Hematocrit 35.6 % (41-53); Lymphocytes Absolute Auto 1400 /uL (1100-4500); Lymphocytes Percent Auto 25.9 % (25-40); Mean Corpuscular HGB Conc 33.7 % (30-36); Mean Corpuscular Hemoglobin 33.2 PG (26-34); Mean Corpuscular Volume 98.6 fL (80-100); Monocytes Absolute Auto 500 /uL (0-900); Monocytes Percent Auto 9.2 % (3-14); Neutrophils Absolute Auto 3300 /uL (1500-7000); Neutrophils Percent Auto 60.2 % (50-75); Platelet Count 206 X10^3/uL (150-400); Red Blood Cell Count 3.61 X10^6/uL (4.5-5.9); Red Cell Distribution Width 13.8 % (11.6-14.8); White Blood Cell Count 5.5 X10^3/uL (4.5-11.0)
[2024-11-10] MEDS: PIPERACILLIN/TAZO 3.375 GM in SODIUM CHLORIDE 0.9% 100 ML IV ×3 (06:06→20:33)
[2024-11-10] MEDS: ACETAMINOPHEN 325 MG TABLET 650 MG PO ×2 (06:11→20:30)
[2024-11-10 08:44] LABS: Alanine Aminotransferase 145 IU/L (<50); Albumin 3.7 g/dL (3.5-5.0); Albumin Globulin Ratio 0.9 (1.0-2.8); Alkaline Phosphatase 79 U/L (38-126); Aspartate Aminotransferase 131 IU/L (17-59); BUN Creatinine Ratio 23.6 (6-22); Bilirubin Total 0.4 mg/dL (0.2-1.3); Blood Urea Nitrogen 35 mg/dL (9-20); Calcium 8.9 mg/dL (8.4-10.2); Carbon Dioxide 15 mmol/L (22-32); Chloride 110 mmol/L (98-107); Estimated Glomerular Filt Rate 54 mL/min (>60); Globulin 4.1 g/dL (1.7-4.1); Glucose 90 mg/dL (80-110); HEMOLYSIS < 15 (0-50); Potassium 4.1 mmol/L (3.4-5.1); Sodium 137 mmol/L (137-145); Total Protein 7.8 g/dL (6.3-8.2)
[2024-11-10 08:50] LABS: Vancomycin Peak 13.5 ug/mL (20-40)
[2024-11-10] MEDS: SODIUM CHLORIDE 0.9% FLUSH 10 ML IV ×2 (09:22→20:32)
[2024-11-10] MEDS: polyethylene glycoL 3350 17 GM POWD.PACK PO (09:22)
[2024-11-10] MEDS: SODIUM CHLORIDE 0.9% IV (09:23)
[2024-11-10] MEDS: DAPTOMYCIN IV (09:23)
--- NOTE | 2024-11-10 12:10 | CM.DPNOTE ---
DCP Cont Reviewed chart. Patient discussed in multidisciplinary rounds. Patient is scheduled for a bone biopsy this afternoon. Received call from Rishabh at [facility]; patient is covered 100% for home infusion services. Rishabh will update patient. Discharge plan will be dependent on culture results, abx treatment plan and further discussion with patient to review DCP options. CM team following clinical course closely. JOSIAS
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
--- NOTE | 2024-11-10 17:04 | PC.NURSE ---
Day shift: Pt off unit for procedure at approx 1705.
--- NOTE | 2024-11-10 17:36 | PM.OP.1 ---
Operative Date/Time/Diagnoses Date of procedure: 11/10/24 Time of procedure: 17:43 Pre-op diagnosis: Right 5th toe infection, osteomyelitis Post-op diagnosis: same Procedure & Clinicians Procedure: Irrigation debridement deep bone biopsy right 5th toe CPT code 49606 Same procedure as scheduled: Yes Indications: 59-year-old male with right 5th toe osteomyelitis was indicated for bone biopsy to help direct antibiotic treatment. Discussed options including 5th toe amputation. Patient declines amputation. Discussed risks of worsening infection and need for additional procedures. The patient consents for irrigation debridement and bone biopsy. The risks and benefits of the procedure have been discussed with the patient and given the opportunity to ask questions. The risks of surgery include but are not limited to infection, malunion, nonunion, persistence of pain, damage to nerves and blood vessels, posttraumatic arthritis, DVT, PE, coardiopulmonary complications and . The patient expressed a thorough understanding of the risks and benefits of surgery and has elected to proceed. Consent was signed . Surgeon: Rachel Gonzalez Click Yes if Unassisted: Yes Anesthesia Type: MAC +/- and Local Operative Notes Findings: Osteomyelitis 5th toe with lateral ulceration. Small abscess through small ulceration under callus there were some purulence noted. Proximal phalanx was noted to be mostly destroyed soft and fragmented. Specimen(s): other (Bone sent for pathology, culture, bacterial PCR) Prosthetic devices, grafts, tissues, transplants, or devices: Bone and tissue were sent for PCR, pathology and culture Estimated Blood Loss (mL): 2 Tourniquet time (min): 0 Procedure in detail: Patient was seen in the preoperative area the site of surgery was marked this was the right 5th toe. He was brought to the operating room by the anesthesia team. He was positioned supine on operative table. The right lower extremity was prepped and draped in the standard sterile fashion a formal time-out procedure was performed confirming the patient's side and site of surgery administration of appropriate preoperative antibiotic. The patient has been on scheduled IV antibiotics. All were in agreement. Attention was turned to the right 5th toe. No tourniquet was utilized. 5 cc of 0.25% Marcaine with epinephrine were used for local anesthetic in a digital block. Then a scalpel was used to remove the dried callus around the lateral aspect of the 5th toe this revealed a small proximally 2 mm ulceration this was opened and there was gross purulence this was opened slightly wider and irrigated with a bulb syringe. A small rongeur was then used to remove some of the soft fragmented proximal phalanx and sent for culture pathology and PCR. Once this was completed more irrigation was completed followed by closure with a 4-0 nylon suture. Soft dressing was placed with Xeroform gauze and a Kiki wrap. Patient was awoken from anesthesia and taken to recovery room in good condition counts were correct. It was noted the patient had good palpable dorsalis pedis pulses at the time of the procedure. Complications: none Post-operative Condition: stable Disposition: PACU Plan for aftercare: Weightbear as tolerated. We will have continued care with admitting hospitalist team and coordinate antibiotics through Infectious Disease based on cultures. Can have his suture removed in 2-3 weeks. 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 No specific additional ortho follow up required unless patient desires or requires additional surgery.
--- NOTE | 2024-11-10 19:09 | PC.NURSE ---
Day shift: Pt back in room at approx 1900 from PACU. A&Ox4. Agrees to not get OOB w/o help from staff. Bed alarm is on and call light in reach. Tolerating water and is going to eat now as well. Spouse in room for support.
--- NOTE | 2024-11-10 19:26 | P.PN_ITS ---
Subjective Subjective Date Patient Seen: 11/10/24 Time Patient Seen: 08:40 Interval history: Narrative: The patient was a 59-year-old male with a foot wound. This has been ongoing for least a month and he presented to the urgent care today because of progressive swelling. There were x-rays performed which was concerning for osteomyelitis and he was forwarded to the emergency department. The patient was noted increased swelling recently as well as a purulent discharge. He denies any fevers, or chills. He was not have a history of neuropathy, or diabetes. The patient appears to have a history of PTSD and is extremely needle phobic. He became very anxious when any discussions about a PICC line happened tonight. The patient notes that this all began with a twisting of the ankle type injury that is just progressed. His foot has been hot and there has been drainage is noted above. In fact, the foot is swollen to about 150% the size of his left foot. He has been able to weight bear. Interval history: Patient notes ongoing swelling in the right foot without drainage or discharge. He underwent bone biopsy this evening by Dr. Gonzalez. Exam Vital Signs (past 8 hours): - 11/10/24 17:17 11/10/24 18:24 11/10/24 18:31 Temperature 98.4 F 97.8 F Pulse Rate 71 76 87 Respiratory Rate 18 16 14 Blood Pressure 145/95 H 128/86 114/84 Pulse Oximetry 98 97 96 Oxygen Delivery Method Room Air Room Air 11/10/24 18:36 Temperature 97.9 F Pulse Rate 73 Respiratory Rate 17 Blood Pressure 112/87 Pulse Oximetry 98 Oxygen Delivery Method Room Air Oxygen Delivery Method Room Air Oxygen Flow Rate 0 Narrative Exam Narrative: Alert and oriented no acute distress Respirations unlabored on room air lungs clear. Heart regular rate and rhythm Nontoxic appearing Right lower extremity demonstrates claw hallux no wounds no swelling or erythema around the hallux. No specific pain around the lesser metatarsal heads. Only wound is lateral at the 5th toe there is some localized purulence at the chronic lateral ulcer along the proximal phalanx of the 5th toe. There is no ascending cellulitis. The calf is soft. Demonstrates ankle dorsiflexion plantar flexion. Brisk capillary refill. No fluctuance. No obvious abscess. Objective Labs 11/10/24 04:44 11/10/24 04:44 Labs: Laboratory Results - last 24 hr 11/10/24 11/10/24 04:44 08:20 WBC 5.5 RBC 3.61 L Hgb 12.0 L Hct 35.6 L MCV 98.6 MCH 33.2 MCHC 33.7 RDW 13.8 Plt Count 206 Neut % (Auto) 60.2 Lymph % (Auto) 25.9 [place] % (Auto) 9.2 Eos % (Auto) 2.2 Baso % (Auto) 2.5 H Neut # (Auto) 3300 Lymph # (Auto) 1400 [place] # (Auto) 500 Eos # (Auto) 100 Baso # (Auto) 100 Sodium 137 Potassium 4.1 Chloride 110 H Carbon Dioxide 15 L BUN 35 H Creatinine 1.48 H Estimated GFR 54 L BUN/Creatinine Ratio 23.6 H Glucose 90 Calcium 8.9 Total Bilirubin 0.4 AST 131 H ALT 145 H Alkaline Phosphatase 79 Total Protein 7.8 Albumin 3.7 Globulin 4.1 Albumin/Globulin Ratio 0.9 L Vancomycin Peak 13.5 L Vancomycin Trough 15.0 PFSH Social History household members: significant other Smoking Status: Former smoker alcohol intake: current Assessment & Plan Assessment & Plan narrative: 1.??? R foot cellulitis/R 5th digit osteomyelitis, present on admission and improved. Cellulitis is presently improving. He remains on Zosyn and daptomycin. Blood cultures are negative to date. Osteomyelitis is felt to be chronic per initial orthopedic surgery evaluation. Bone biopsy obtained 11/10/2024 and pending. 2.??? Alcohol dependence, presently in remission, stable. Per report, patient has not had alcohol in the last 4 months. At this time, he has not showing any symptoms or signs of withdrawal. 3.??? Anemia, stable. Mild and stable. 4.??? Elevated lipase on admission, present on admission and improved. Lipase was elevated at 401 on admission. Is not complaining of any abdominal pain, nausea or vomiting. Will monitor for any symptoms or signs of pancreatitis 5.??? Pancytopenia, stable. White blood cell count is 3.6, up from 3.1 yesterday. As noted, platelet count is improved. Hemoglobin is noted is also improved. Plan: -continue daptomycin and Zosyn -follow bone biopsy results -outpatient referral was sent to infectious disease. 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
[2024-11-11] MEDS: OXYCODONE IR 5 MG TABLET PO ×5 (01:36→23:27)
[2024-11-11 03:00] VITALS: BP 148/89; PULSE 58; RESP 20; TEMP 36.4; O2SAT 98
[2024-11-11] MEDS: PIPERACILLIN/TAZO 3.375 GM in SODIUM CHLORIDE 0.9% 100 ML IV ×3 (05:26→21:17)
[2024-11-11] MEDS: ACETAMINOPHEN 325 MG TABLET 650 MG PO ×2 (05:30→23:26)
[2024-11-11 08:00] VITALS: BP 144/84; PULSE 68; RESP 15; TEMP 36.3; O2SAT 100
--- NOTE | 2024-11-11 09:48 | PM.PNPO.1 ---
Subjective Subjective Date Patient Seen: 11/11/24 Time Patient Seen: 09:48 Interval history: Postop day 1 status post irrigation debridement bone biopsy right 5th toe. Patient is doing well today up ambulating around the room with a soft dressing on. States his pain is improved and is pleased with the care he has received. Exam Vital Signs (past 8 hours): - 11/11/24 03:00 11/11/24 08:00 Temperature 97.6 F 97.3 F L Pulse Rate 58 L 68 Respiratory Rate 20 15 Blood Pressure 148/89 H 144/84 H Pulse Oximetry 98 100 Oxygen Flow Rate 0 Oxygen Delivery Method Room Air Oxygen Flow Rate 0 Narrative Exam Narrative: Alert and oriented no acute distress. Right lower extremity shows the soft wrap on the right foot. There is a little bit of bloody drainage right around the lateral 5th toe. The toe was pink well perfused. Objective Labs 11/10/24 04:44 11/10/24 04:44 PFSH Social History household members: significant other Smoking Status: Former smoker alcohol intake: current Assessment & Plan Post-op Postoperative Procedures: Procedures Operation Date: 11/10/24 17:15 Actual Procedure Side Surgeon p Bone Biopsy Foot Right Rachel Gonzalez MD Postoperative day: 1 Postoperative plan narrative: I discussed with the patient that his bone was very soft at the proximal phalanx of 5th toe consistent with osteomyelitis. Bone was sent for culture and pathology. This is done to help guide Infectious Disease on antibiotics. Patient has declined amputation or further potential infection curative treatment and wishes to do everything to avoid more extensive surgery or amputation. Discussed in a few days can take down the dressing and just put a Band-Aid or a new dressing over the site of the toe. He has [address] that can be removed after 2-3 weeks. He can have outpatient follow up with this with his PCP or wound care. Time Spent With Patient Time with patient: less than 15 minutes Quality VTE Deep Vein Thrombosis/Pulmonary Embolism Present on Admission: No
[2024-11-11] MEDS: DAPTOMYCIN IV (10:09)
[2024-11-11] MEDS: SODIUM CHLORIDE 0.9% IV (10:09)
[2024-11-11] MEDS: SODIUM CHLORIDE 0.9% FLUSH 10 ML IV ×2 (10:09→21:17)
--- NOTE | 2024-11-11 13:36 | P.PN_ITS ---
Subjective Subjective Date Patient Seen: 11/11/24 Time Patient Seen: 13:10 Interval history: Narrative: The patient was a 59-year-old male with a foot wound. This has been ongoing for least a month and he presented to the urgent care today because of progressive swelling. There were x-rays performed which was concerning for osteomyelitis and he was forwarded to the emergency department. The patient was noted increased swelling recently as well as a purulent discharge. He denies any fevers, or chills. He was not have a history of neuropathy, or diabetes. The patient appears to have a history of PTSD and is extremely needle phobic. He became very anxious when any discussions about a PICC line happened tonight. The patient notes that this all began with a twisting of the ankle type injury that is just progressed. His foot has been hot and there has been drainage is noted above. In fact, the foot is swollen to about 150% the size of his left foot. He has been able to weight bear. Interval history: Patient is s/p I&D and bone biopsy of left 5th proximal phalanx 11/10/2024 and doing well without complaints. Exam Vital Signs (past 8 hours): - 11/11/24 08:00 Temperature 97.3 F L Pulse Rate 68 Respiratory Rate 15 Blood Pressure 144/84 H Pulse Oximetry 100 Oxygen Delivery Method Room Air Oxygen Flow Rate 0 Narrative Exam Narrative: Alert and oriented no acute distress Respirations unlabored on room air lungs clear. Heart regular rate and rhythm Nontoxic appearing Right lower extremity with bandage in place, clean dry and intact over the right lateral distal foot. Objective Labs 11/10/24 04:44 11/10/24 04:44 [facility] Social History household members: significant other Smoking Status: Former smoker alcohol intake: current Assessment & Plan Assessment & Plan narrative: 1.??? R foot cellulitis/R 5th digit osteomyelitis, present on admission and improved. Cellulitis is presently improving with underlying abscess and presumed osteomyelitis, s/p I&D and bone biopsy of left 5th proximal phalanx 11/10/2024. He remains on Zosyn and daptomycin. Blood cultures are negative to date. Bone biopsy obtained 11/10/2024 and pending. 2.??? Alcohol dependence, presently in remission, stable. Per report, patient has not had alcohol in the last 4 months. At this time, he has not showing any symptoms or signs of withdrawal. 3.??? Anemia, stable. Mild and stable. 4.??? Elevated lipase on admission, present on admission and improved. Lipase was elevated at 401 on admission. Is not complaining of any abdominal pain, nausea or vomiting. Will monitor for any symptoms or signs of pancreatitis 5.??? Pancytopenia, stable. White blood cell count is 3.6, up from 3.1 yesterday. As noted, platelet count is improved. Hemoglobin is noted is also improved. Plan: -continue daptomycin and Zosyn -follow bone biopsy results -outpatient referral was sent to infectious disease. 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
[2024-11-11 19:45] VITALS: BP 122/84; PULSE 69; RESP 18; TEMP 36.6; O2SAT 99
[2024-11-12] MEDS: OXYCODONE IR 5 MG TABLET PO ×5 (03:30→21:48)
[2024-11-12] MEDS: PIPERACILLIN/TAZO 3.375 GM in SODIUM CHLORIDE 0.9% 100 ML IV ×2 (05:56→13:54)
[2024-11-12 07:00] VITALS: BP 135/88; PULSE 53; RESP 18; TEMP 36; O2SAT 100
[2024-11-12] MEDS: SODIUM CHLORIDE 0.9% FLUSH 10 ML IV ×2 (08:23→21:48)
[2024-11-12] MEDS: ACETAMINOPHEN 325 MG TABLET 650 MG PO ×2 (08:25→15:40)
[2024-11-12] MEDS: DAPTOMYCIN IV (08:30)
[2024-11-12] MEDS: SODIUM CHLORIDE 0.9% IV (08:30)
--- NOTE | 2024-11-12 09:42 | PM.PN.IH.1 ---
Subjective Subjective Date Patient Seen: 11/12/24 Time Patient Seen: 08:55 Interval history: Narrative: The patient was a 59-year-old male with a foot wound. This has been ongoing for least a month and he presented to the urgent care today because of progressive swelling. There were x-rays performed which was concerning for osteomyelitis and he was forwarded to the emergency department. The patient was noted increased swelling recently as well as a purulent discharge. He denies any fevers, or chills. He was not have a history of neuropathy, or diabetes. The patient appears to have a history of PTSD and is extremely needle phobic. He became very anxious when any discussions about a PICC line happened tonight. The patient notes that this all began with a twisting of the ankle type injury that is just progressed. His foot has been hot and there has been drainage is noted above. In fact, the foot is swollen to about 150% the size of his left foot. He has been able to weight bear. Interval history: Patient is s/p I&D and bone biopsy of left 5th proximal phalanx 11/10/2024 and doing well without complaints. No new issues. Exam Vital Signs (past 8 hours): - 11/12/24 07:00 Temperature 96.8 F L Pulse Rate 53 L Respiratory Rate 18 Blood Pressure 135/88 Pulse Oximetry 100 Oxygen Flow Rate 0 Oxygen Delivery Method Room Air Oxygen Flow Rate 0 Narrative Exam Narrative: Alert and oriented no acute distress Respirations unlabored on room air lungs clear. Heart regular rate and rhythm Nontoxic appearing Right lower extremity with bandage in place, clean dry and intact over the right lateral distal foot. Objective Labs 11/10/24 04:44 11/10/24 04:44 [facility] Social History household members: significant other Smoking Status: Former smoker alcohol intake: current Assessment & Plan Assessment & Plan narrative: 1.??? R foot cellulitis/R 5th digit osteomyelitis, present on admission and improved. Cellulitis is continuing to improve with underlying abscess and presumed osteomyelitis, s/p I&D and bone biopsy of left 5th proximal phalanx 11/10/2024. Continue on Zosyn and daptomycin pending 11/10/2024 culture results. Blood cultures are negative to date. Bone biopsy obtained 11/10/2024 and pending. 2.??? Alcohol dependence, presently in remission, stable. Per report, patient has not had alcohol in the last 4 months. At this time, he has not showing any symptoms or signs of withdrawal. 3.??? Anemia, stable. Mild and stable. 4.??? Elevated lipase on admission, present on admission and improved. Lipase was elevated at 401 on admission. Is not complaining of any abdominal pain, nausea or vomiting. Will monitor for any symptoms or signs of pancreatitis 5.??? Pancytopenia, stable. White blood cell count is 3.6, up from 3.1 yesterday. As noted, platelet count is improved. Hemoglobin is noted is also improved. Plan: -continue daptomycin and Zosyn -follow bone biopsy results -outpatient referral was sent to infectious disease. Quality VTE Deep Vein Thrombosis/Pulmonary Embolism Present on Admission: No IH PROFEE Machine Tank Operator Document charge(s): No Charge Codes Subsequent inpatient/observation care: [id number]
[2024-11-12 20:35] VITALS: BP 140/78; PULSE 78; RESP 17; TEMP 37.2; O2SAT 99
[2024-11-13] MEDS: ACETAMINOPHEN 325 MG TABLET 650 MG PO ×2 (05:34→14:18)
[2024-11-13] MEDS: OXYCODONE IR 5 MG TABLET PO ×5 (05:34→22:16)
[2024-11-13 08:00] VITALS: BP 120/85; PULSE 92; RESP 16; TEMP 36.6; O2SAT 98
[2024-11-13] MEDS: DAPTOMYCIN IV (09:50)
[2024-11-13] MEDS: SODIUM CHLORIDE 0.9% IV (09:50)
[2024-11-13] MEDS: SODIUM CHLORIDE 0.9% FLUSH 10 ML IV ×2 (09:51→20:22)
--- NOTE | 2024-11-13 12:01 | CM.DPNOTE ---
Addendum entered by JEFFRY Jimenez 11/13/24 14:51: PRODUCT MARKETING ANALYST met with pt and spouse in room. reviewed DCP options. pt preference is to dc home with OP daily infusions. pt agreeable to SOC/f/u with Dr. Marsh. fearful of PICC placement. PRODUCT MARKETING ANALYST answered questions to best of ability. Per RN/chart review, new order for PICC placed. PRODUCT MARKETING ANALYST updated RN on pt's fear of getting PICC placed. P: DCP pending confirmation of IV abx. CM team will continue to follow closely SL Original Note: DCP Note per provider in morning rounds, will need 6 weeks IV dapto, current dosing 410mg Q24 may change. per provider, Bakari unwilling to follow in OP setting due to pt's home circumstances/hx of ETOH abuse. pt will need PICC line/midline?. Per Fanny at [facility], contracted with [employer] but it will depend on if [employer] willing to auth a carve out. willing to review and attempt auth. PRODUCT MARKETING ANALYST emailed Fanny referral information. Per Nhung at [facility], with pt's INS will require prior auth from [employer]. as soon as OP plan confirmed and drug is confirmed she will start the auth. Per Rishabh at [facility], will continue to follow on their end if can find a agreeable OP provider to follow orders. Per the wonderful Kaila RN with the TCM OP team, Dr. Marsh SO KINDLY agreed to follow him in the OP setting and Kaila arranged for SOC tentatively for 11/16/24 at 1015. PRODUCT MARKETING ANALYST updated provider. DCP CONTINUES. options in order of previously stated pt preference. all plans of course pending pt remains on the 410 Q24 Dapto. if that changes, new plans will likely need to be started. 1) dc home, have SOC with PCP Maximo Hyde and come daily for OP ins for 6 weeks. NEED PICC, OP ins auth, official referral. need to assist in arranging medicaid transport to [facility]. 2) dc home with home infusions. NEED PICC, confirm following provider, and to send updated med to [facility] 3) dc to [facility] pending ins auth/carve out. NEED PICC/PASRR. CM team will continue to follow closely JEFFRY Jimenez
[2024-11-13] MEDS: CALCIUM CARBONATE 500 MG TAB PO (14:19)
[2024-11-13] MEDS: LORazepam 1 MG TABLET PO (15:06)
--- NOTE | 2024-11-13 15:57 | DI.RAD.S_ITS ---
PROCEDURE: XR CHEST FOR PICC 1V INDICATIONS: picc line placement COMPARISON: [facility], CR, XR CHEST 1V, 11/02/2024, 11:43. FINDINGS: PICC was placed by the intravenous therapy team from the left side. Fluoroscopic spot film demonstrates the tip of PICC projecting to the area of mid SVC. IMPRESSION: Tip of PICC projects to the area of mid SVC. Dictated by: Hanh Gutierrez M.D. on 11/13/2024 at 17:21 Approved by: Hanh Gutierrez M.D. on 11/13/2024 at 17:21
--- NOTE | 2024-11-13 16:55 | PM.PN.1 ---
Subjective Subjective Date Patient Seen: 11/12/24 Time Patient Seen: 08:55 Interval history: Narrative: The patient was a 59-year-old male with a foot wound. This has been ongoing for least a month and he presented to the urgent care today because of progressive swelling. There were x-rays performed which was concerning for osteomyelitis and he was forwarded to the emergency department. The patient was noted increased swelling recently as well as a purulent discharge. He denies any fevers, or chills. He was not have a history of neuropathy, or diabetes. The patient appears to have a history of PTSD and is extremely needle phobic. He became very anxious when any discussions about a PICC line happened tonight. The patient notes that this all began with a twisting of the ankle type injury that is just progressed. His foot has been hot and there has been drainage is noted above. In fact, the foot is swollen to about 150% the size of his left foot. He has been able to weight bear. Interval history: Patient is s/p I&D and bone biopsy of left 5th proximal phalanx 11/10/2024 and doing well without complaints. No new issues. Exam Vital Signs (past 8 hours): - 11/13/24 09:00 Oxygen Delivery Method Room Air Oxygen Delivery Method Room Air Oxygen Flow Rate 0 Narrative Exam Narrative: Alert and oriented no acute distress Respirations unlabored on room air lungs clear. Heart regular rate and rhythm Nontoxic appearing Right lower extremity with bandage in place, clean dry and intact over the right lateral distal foot. Objective Labs 11/10/24 04:44 11/10/24 04:44 [facility] Social History household members: significant other Smoking Status: Former smoker alcohol intake: current Assessment & Plan Assessment & Plan narrative: 1.??? R foot cellulitis/R 5th digit osteomyelitis, present on admission and improved. Cellulitis is continuing to improve with underlying abscess and presumed osteomyelitis, s/p I&D and bone biopsy of left 5th proximal phalanx 11/10/2024. Continue on Zosyn and daptomycin - operative cultures with MRSA - will need to wait on anaerobic cultures prior to narrowing to just daptomycin. - referral sent to ID physician, awaiting confirmation of discharge plan. Discussed with ID today. - repeat labs tomorrow AM ordered 2.??? Alcohol dependence, presently in remission, stable. Per report, patient has not had alcohol in the last 4 months. At this time, he has not showing any symptoms or signs of withdrawal. 3.??? Anemia, stable. Mild and stable. 4.??? Elevated lipase on admission, present on admission and improved. Lipase was elevated at 401 on admission. Is not complaining of any abdominal pain, nausea or vomiting. Will monitor for any symptoms or signs of pancreatitis 5.??? Pancytopenia, stable. White blood cell count is 3.6, up from 3.1 yesterday. As noted, platelet count is improved. Hemoglobin is noted is also improved. Plan: -continue daptomycin and Zosyn for now -follow bone biopsy cultures -outpatient referral was sent to infectious disease. Time-Based Coding :: [TOTAL MINUTES] spent with patient and on the chart (including review of chart, obtaining history, exam, reviewing outside data, placing orders, documenting exam and treatment plan, and counseling patient) on [DATE]. Quality VTE Deep Vein Thrombosis/Pulmonary Embolism Present on Admission: No
--- NOTE | 2024-11-13 18:58 | PC.NURSE ---
Patient very pleasant with minimal complaints. Flat ortho shoe delivered by coordinator today, order was clarified by Dr. Gonzalez (that front off load shoe or flat shoe if that one is not available is fine). Patient has been ambulating in his room independently without issue, with his staying at bedside. Eating all meals, voiding without problem, and states he had 4 normal BM's today. PICC line was placed by DI nurse to left upper arm, patient was able to tolerate well. Oxycodone prn per pain orders with good relief, see MAR. Call light within reach.
[2024-11-13 19:00] VITALS: BP 122/86; PULSE 83; RESP 20; TEMP 36.4; O2SAT 98
[2024-11-14] MEDS: OXYCODONE IR 5 MG TABLET PO ×5 (03:25→23:24)
[2024-11-14 05:03] LABS: Add Manual Diff / Slide Review NO; Basophils Absolute Auto 100 /uL (0-100); Eosinophils Absolute Auto 200 /uL (0-450); Eosinophils Percent Auto 2.5 % (2-4); Hematocrit 37.2 % (41-53); Hemoglobin 12.7 g/dL (13.5-17.5); Lymphocytes Absolute Auto 1700 /uL (1100-4500); Lymphocytes Percent Auto 27.8 % (25-40); Mean Corpuscular HGB Conc 34.1 % (30-36); Mean Corpuscular Hemoglobin 33.5 PG (26-34); Mean Corpuscular Volume 98.1 fL (80-100); Monocytes Absolute Auto 400 /uL (0-900); Neutrophils Absolute Auto 3800 /uL (1500-7000); Neutrophils Percent Auto 60.7 % (50-75); Platelet Count 228 X10^3/uL (150-400); Red Cell Distribution Width 13.9 % (11.6-14.8); White Blood Cell Count 6.2 X10^3/uL (4.5-11.0)
[2024-11-14 05:27] LABS: Alanine Aminotransferase 173 IU/L (<50); Albumin 4.1 g/dL (3.5-5.0); Alkaline Phosphatase 87 U/L (38-126); Aspartate Aminotransferase 138 IU/L (17-59); BUN Creatinine Ratio 26.8 (6-22); Bilirubin Total 0.4 mg/dL (0.2-1.3); Blood Urea Nitrogen 40 mg/dL (9-20); C-Reactive Protein Quant < 0.5 mg/dL (<1.0); Calcium 9.2 mg/dL (8.4-10.2); Carbon Dioxide 19 mmol/L (22-32); Chloride 104 mmol/L (98-107); Creatine Kinase 41 U/L (55-170); Erythrocyte Sedimentation Rate 36 MM/HR (0-15); Estimated Glomerular Filt Rate 53 mL/min (>60); Globulin 4.3 g/dL (1.7-4.1); Glucose 112 mg/dL (80-110); HEMOLYSIS 19 (0-50); Potassium 3.8 mmol/L (3.4-5.1); Sodium 136 mmol/L (137-145); Total Protein 8.4 g/dL (6.3-8.2)
[2024-11-14] MEDS: SODIUM CHLORIDE 0.9% IV (09:19)
[2024-11-14] MEDS: SODIUM CHLORIDE 0.9% FLUSH 10 ML IV ×2 (09:19→21:00)
[2024-11-14] MEDS: DAPTOMYCIN IV (09:19)
[2024-11-14] MEDS: ACETAMINOPHEN 325 MG TABLET 650 MG PO ×2 (09:20→18:11)
--- NOTE | 2024-11-14 13:36 | PM.PN.1 ---
Subjective Subjective Interval history: Narrative: The patient was a 59-year-old male with a foot wound. This has been ongoing for least a month and he presented to the urgent care today because of progressive swelling. There were x-rays performed which was concerning for osteomyelitis and he was forwarded to the emergency department. The patient was noted increased swelling recently as well as a purulent discharge. He denies any fevers, or chills. He was not have a history of neuropathy, or diabetes. The patient appears to have a history of PTSD and is extremely needle phobic. He became very anxious when any discussions about a PICC line happened tonight. The patient notes that this all began with a twisting of the ankle type injury that is just progressed. His foot has been hot and there has been drainage is noted above. In fact, the foot is swollen to about 150% the size of his left foot. He has been able to weight bear. Interval history: Patient is s/p I&D and bone biopsy of left 5th proximal phalanx 11/10/2024 and doing well without complaints. No new issues. He expresses concern about discharging from the hospital, reassurance was provided. Exam Vital Signs (past 8 hours): Oxygen Delivery Method Room Air Oxygen Flow Rate 0 Narrative Exam Narrative: Alert and oriented no acute distress Respirations unlabored on room air lungs clear. Heart regular rate and rhythm Nontoxic appearing Right lower extremity with bandage in place, clean dry and intact over the right lateral distal foot. Objective Labs 11/14/24 04:28 11/14/24 04:28 Labs: Laboratory Results - last 24 hr 11/14/24 04:28 WBC 6.2 RBC 3.80 L Hgb 12.7 L Hct 37.2 L MCV 98.1 MCH 33.5 MCHC 34.1 RDW 13.9 Plt Count 228 Neut % (Auto) 60.7 Lymph % (Auto) 27.8 [place] % (Auto) 7.0 Eos % (Auto) 2.5 Baso % (Auto) 2.0 Neut # (Auto) 3800 Lymph # (Auto) 1700 [place] # (Auto) 400 Eos # (Auto) 200 Baso # (Auto) 100 ESR 36 H Sodium 136 L Potassium 3.8 Chloride 104 Carbon Dioxide 19 L BUN 40 H Creatinine 1.49 H Estimated GFR 53 L BUN/Creatinine Ratio 26.8 H Glucose 112 H Calcium 9.2 Total Bilirubin 0.4 AST 138 H ALT 173 H Alkaline Phosphatase 87 Total Creatine Kinase 41 L C-Reactive Protein < 0.5 Total Protein 8.4 H Albumin 4.1 Globulin 4.3 H Albumin/Globulin Ratio 1.0 [facility] Social History household members: significant other Smoking Status: Former smoker alcohol intake: current Assessment & Plan Assessment & Plan narrative: 1.??? R foot cellulitis/R 5th digit osteomyelitis, present on admission and improved. Cellulitis is continuing to improve with underlying abscess and presumed osteomyelitis, s/p I&D and bone biopsy of left 5th proximal phalanx 11/10/2024. Continue on Zosyn and daptomycin - operative cultures with MRSA - will need to wait on anaerobic cultures prior to narrowing to just daptomycin. - referral sent to ID physician, awaiting confirmation of discharge plan. Discussed with ID provider. - repeat labs tomorrow AM ordered 2.??? Alcohol dependence, presently in remission, stable. Per report, patient has not had alcohol in the last 4 months. At this time, he has not showing any symptoms or signs of withdrawal. 3.??? Anemia, stable. Mild and stable. 4.??? Elevated lipase on admission, present on admission and improved. Lipase was elevated at 401 on admission. Is not complaining of any abdominal pain, nausea or vomiting. Will monitor for any symptoms or signs of pancreatitis 5.??? Pancytopenia, stable. White blood cell count is 3.6, up from 3.1 yesterday. As noted, platelet count is improved. Hemoglobin is noted is also improved. Plan: -continue daptomycin and Zosyn for now -follow bone biopsy cultures -outpatient referral was sent to infectious disease. Time-Based Coding :: [TOTAL MINUTES] spent with patient and on the chart (including review of chart, obtaining history, exam, reviewing outside data, placing orders, documenting exam and treatment plan, and counseling patient) on [DATE]. Quality VTE Deep Vein Thrombosis/Pulmonary Embolism Present on Admission: No
--- NOTE | 2024-11-14 14:51 | CM.DPNOTE ---
Addendum entered by Billie Arce, JEFFRY 11/14/24 16:14: Per Nhung at [facility], scheduled pt to get abx at 11:30 on floor from 11/16 until Monday 11/20. Will start with clinic downstairs 10/21 at 11:30. AUTOMATIC SEAMER updated pt and partner on infusion times. in agreement and report understanding. Per Nhung at [facility] no labs needed Wed as long they don't get drawn again til next wednesday/ when nurse returns. Dr. Isaacs approved that plan for labs being drawn. SL Addendum entered by Billie Arce, JEFFRY 11/14/24 15:08: pt asked about if he would get any pain meds at dc. AUTOMATIC SEAMER unsure, updated provider on pt's concerns for pain management in OP setting SL Original Note: DCP Note AUTOMATIC SEAMER reviewed EMR Per Ferny, likely going to move forward with the dapto Q24 410Mg for 6 weeks plan, unsure at this point if he'll need the zosyn as well. won't know for sure until tomorrow likely. agreed to have this AUTOMATIC SEAMER move forward with plan as if no zosyn will be needed so as not to lose the SOC PCP Appt slot . Per chart review, ortho gave him appropriate shoe and he got PICC line yesterday. AUTOMATIC SEAMER worked closely with TCM and Nhung from [facility] throughout day. Ferny kindly completed provider order form. AUTOMATIC SEAMER faxed Nhung at [facility] order form. Nhung working on ins auth. Per AUTOMATIC SEAMER Emy, [facility] RN unable to complete infusions in clinic until 11/21, pt will have to come up to floor for infusion like it were a weekend. Per RN, pt gets IV abx [id number] here. AUTOMATIC SEAMER reviewed DCP with pt and partner. presented 3 different plans of OP infusions, home infusions, and SNF for infusions. confirmed correct contact number is [phone]. Pt confirms preference for OP infusions and reports understanding that he cannot remain admitted to the ACU for 6 weeks. Pt and partner report verbal understanding of and agreement with plan. AUTOMATIC SEAMER answered questions to best of ability. partner hopeful pt will dc before 1400 Wed to get home before dark. AUTOMATIC SEAMER lvm with Rishabh at [facility] and emailed Fanny at [facility] to cancel referrals. AUTOMATIC SEAMER updated provider/TCM/Nhung at [facility]/RN on below plan. All in agreement. Plan is as follows: pt will get IV dapto dose tomorrow 11/15 approx 9am. will dc home after IV abx dose. Will f/u with new PCP Dr. Marsh at 10:00am 11/16/24. From there, pt will come up to ACU immediately after SOC PCP appt and then daily until stop date of iv abx (12/22/24). pt will either walk to (he lives two blocks away) will get driven here by partner. No further CM needs identified at this time. CM team will continue to follow closely JEFFRY Jimenez
[2024-11-14 17:04] VITALS: BP 119/85; PULSE 89; RESP 19; TEMP 36.5; O2SAT 96
[2024-11-14 21:17] VITALS: BP 126/77; PULSE 86; RESP 18; TEMP 36.3; O2SAT 98
[2024-11-14] MEDS: LORazepam 1 MG TABLET PO (23:24)
[2024-11-15] MEDS: CALCIUM CARBONATE 500 MG TAB PO ×2 (04:29→22:07)
[2024-11-15] MEDS: ACETAMINOPHEN 325 MG TABLET 650 MG PO ×2 (04:30→22:07)
[2024-11-15] MEDS: OXYCODONE IR 5 MG TABLET PO ×5 (04:30→22:07)
[2024-11-15] MEDS: LORazepam 1 MG TABLET PO ×2 (04:30→23:17)
[2024-11-15 08:00] VITALS: BP 137/81; PULSE 85; RESP 17; TEMP 36.1; O2SAT 99
--- NOTE | 2024-11-15 08:56 | PM.DS.1 ---
History of Present Illness History of Present Illness Date Patient Seen: 11/15/24 Time Patient Seen: 08:56 Chief complaint: RT ankle swollen Narrative: Per admitting provider, Patient is a 59-year-old male with a history of a right foot infection. States that he used to have a plantar wound around the IP joint of the great toe he went to some nursing care and was given doxycycline states that healed up fine. He had a similar wound appear on the lateral side of his 5th toe more recently he thought it would also be a minimal to antibiotics but has gotten worse. Was draining and he came to the ER. He was admitted to medicine. When my colleagues was called. 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 He has been treated with IV antibiotics. I was called by the hospitalist Dr. Isaacs for question regarding options for bone biopsy for this patient to help provide guidance to the infectious disease optimization consultant. Saw the patient at bedside. We discussed options for his foot. Given the amount of bony destruction of the proximal phalanx of his 5th toe just that amputation of the 5th toe would also be an option. Also discussed the may have chronic osteomyelitis of the IP joint of his hallux and that these types of infections may wax and wane or get worse. He adamantly refuses amputation states ?I would rather than have amputation. And that he needs to walk. I mentioned to him that toe amputation would not prevent walking but a debridement and bone biopsy to guide antibiotic can be done however if he worsens then he may still require additional treatment in the future.--he reports that he has reasonable for a debridement and bone biopsy today if it help him get antibiotics and potentially heal the toe Discharge Providers Provider Date of admission: 11/02/24 16:55 Discharge Date: 11/15/24 Primary care physician: Doctor Fransico MD Consults: 11/02/24 11:34 Consult to BAKER - Director Of Sleep Stat Comment: Director Of Sleep Consult needed for:: Homeless Comment: lives in [place]. has not gotten monthly check from [employer]. 11/03/24 12:48 Consult to Orthopedic Surgery Routine Comment: Consulting Provider: Darwin Becker Reason for consultation: foot infection Has provider been notified: Yes Discharge provider: Guille Isaacs, DO Summary Hospital Course Discharge Diagnosis: 1.??? R foot cellulitis/R 5th digit osteomyelitis, present on admission and improved. 2.??? Alcohol dependence, presently in remission, stable. 3.??? Anemia, stable. 4.??? Elevated lipase on admission, present on admission and improved. 5.??? Pancytopenia, stable. Time Spent with Patient Time spent: Greater than 30 minutes Exam Vital Signs (past 8 hours): Oxygen Delivery Method Room Air Oxygen Flow Rate 0 Narrative Exam Narrative: Alert and oriented no acute distress Respirations unlabored on room air lungs clear. Heart regular rate and rhythm Nontoxic appearing Right lower extremity with bandage in place, clean dry and intact over the right lateral distal foot. Objective Labs 11/14/24 04:28 11/14/24 04:28 [facility] Social History household members: significant other Smoking Status: Former smoker alcohol intake: current Discharge Plan Discharge Plan Patient Disposition: Home Discharge orders & Medications Prescriptions: No Action No Known Home Medications Follow up/Referrals: Doctor Bateman MD [Primary Care Provider] - Other Ambulatory Orders: Referral to: (Schedule) Timeframe: 1 Week Location: Determined by Patient Ordered By: Guille Isaacs Visit Report/Discharge Packet Instructions: Osteomyelitis, Methicillin-Resistant Staph Infection, Peripherally Inserted Central Catheter Stand Alone Forms: Patient Portal/API, Stroke Signs & Symptoms Discharge Data Primary Care Provider: Doctor Fransico Quality VTE Deep Vein Thrombosis/Pulmonary Embolism Present on Admission: No
--- NOTE | 2024-11-15 09:09 | PM.CALLCOV.1 ---
Call Coverage Note Note Date of Patient Contact: 11/15/24 Narrative of Care Provided: The patient's IV Daptomycin has been recommended after multiple phone consultations with an infectious disease provider from 11/09/2024 until 11/15/2024. An outpatient referral was sent to this provider.
[2024-11-15] MEDS: DAPTOMYCIN IV (09:47)
[2024-11-15] MEDS: SODIUM CHLORIDE 0.9% IV (09:47)
[2024-11-15] MEDS: SODIUM CHLORIDE 0.9% FLUSH 10 ML IV ×3 (09:48→21:00)
--- NOTE | 2024-11-15 15:21 | CM.DPNOTE ---
DCP Cont According to Nhung Mckeon, Oncology nursing scheduler, patient's IV abx treatment plan has not been authorized yet by [employer]. , the company that helps with authorizations forwarded the fax from [employer] that indicated the following: For further review of this authorization # [id number], please provide documentation of ALL the following information by 5pm 11-16-24: 1) Prescribed by or in consultation with in infectious disease specialist. [If prescribed in consultation, consultation notes must be submitted with initial request] Thank you. Medical prog notes which outlined the hospitalist's consultation with ID was sent via following: Email from this BOX SPINNER---> Nhung Mckeon oncology nursing scheduler---> ---> [employer]. Updated [facility] that patient is not discharging home today and PCP appt for tomorrow 11/16 will need to be rescheduled. Provider updated throughout the day. In addition, according to : A peer to peer must be done with the insurance carrier, and because the PA has not been denied, there is no option for a peer to peer at this time. [employer] [phone] team following closely for coordination efforts. Plan: Discharge home, PCP to manage outpatient IV abx orders- abx infusion on ACU @ 1130, upon DC, until Monday 11/20. outpatient infusion clinic starting 11/21. Pending pre-auth is secured through [employer]. JOSIAS
--- NOTE | 2024-11-15 18:01 | P.PN_ITS ---
Subjective Subjective Interval history: 59 M with R foot osteomyelitis, pathology confirms acute osteo. Cultures with MRSA. Recommended for daptomycin by consultation with ID provider, insurance has not authorized outpatient therapy yet. Will need to get auth prior to discharge. Exam Vital Signs (past 8 hours): - 11/15/24 15:55 Oxygen Delivery Method Room Air Oxygen Delivery Method Room Air Oxygen Flow Rate 0 Narrative Exam Narrative: Alert and oriented no acute distress Respirations unlabored on room air lungs clear. Heart regular rate and rhythm Nontoxic appearing Right lower extremity with bandage in place, clean dry and intact over the right lateral distal foot. Objective Labs 11/14/24 04:28 11/14/24 04:28 [facility] Social History household members: significant other Smoking Status: Former smoker alcohol intake: current Assessment & Plan Assessment & Plan narrative: 1.??? R foot cellulitis/R 5th digit osteomyelitis, present on admission and improved. Cellulitis is continuing to improve with underlying abscess and presumed osteomyelitis, s/p I&D and bone biopsy of left 5th proximal phalanx 11/10/2024. Pathology shows findings consistent with acute osteomyelitis. Continue on Zosyn and daptomycin. Narrow to dapto only once anaerobic cultures finalize per ID physician. - operative cultures with MRSA - will need to wait on anaerobic cultures prior to narrowing to just daptomycin. - referral sent to ID physician, awaiting confirmation of discharge plan as ID provider recommends more monitored setting for antibiotics, ID provider not wanting to follow as outpatient unless in monitored setting. Discussed with ID provider. - Bi weekly labs ESR, CRP, CK, CBC, CMP. Done 11/14, will repeat 11/16. - plan for discharge with PCP to follow antibiotics, however was to establish care on 11/16. Hopefully will get authorization in time for the appointment tomorrow. 2.??? Alcohol dependence, presently in remission, stable. Per report, patient has not had alcohol in the last 4 months. At this time, he has not showing any symptoms or signs of withdrawal. 3.??? Anemia, stable. Mild and stable. 4.??? Elevated lipase on admission, present on admission and improved. Lipase was elevated at 401 on admission. Is not complaining of any abdominal pain, nausea or vomiting. Will monitor for any symptoms or signs of pancreatitis 5.??? Pancytopenia, stable Code: Full Dispo: pending authorization for outpatient antibiotic. Time-Based Coding :: [TOTAL MINUTES] spent with patient and on the chart (including review of chart, obtaining history, exam, reviewing outside data, placing orders, documenting exam and treatment plan, and counseling patient) on [DATE]. Quality VTE Deep Vein Thrombosis/Pulmonary Embolism Present on Admission: No
[2024-11-15 19:52] VITALS: BP 114/83; PULSE 81; RESP 16; TEMP 36.4; O2SAT 98
[2024-11-16] MEDS: OXYCODONE IR 5 MG TABLET PO ×3 (05:24→13:16)
[2024-11-16] MEDS: LORazepam 1 MG TABLET PO (05:24)
[2024-11-16] MEDS: ACETAMINOPHEN 325 MG TABLET 650 MG PO (05:25)
--- NOTE | 2024-11-16 08:17 | CM.DPC ---
DCP Cont. Reviewed EMR and team rounds for status updates. Still pending response from [employer] after having sent clinicals yesterday to appeal pending denial of his antibiotic. Notified the TCM team that pt's initial appt. with Dr. Rothman today will need to be rescheduled due to his inability to leave the hospital until we have an OP Infusion plan confirmed with [employer] [facility]. If we can't obtain an auth, we may need to look at another plan.
[2024-11-16] MEDS: DAPTOMYCIN IV (08:42)
[2024-11-16] MEDS: SODIUM CHLORIDE 0.9% IV (08:42)
[2024-11-16] MEDS: SODIUM CHLORIDE 0.9% FLUSH 10 ML IV (08:44)
--- NOTE | 2024-11-16 12:21 | P.CONS_ITS ---
History of Present Illness Consult details Date Patient Seen: 11/16/24 Time Patient Seen: 10:30 Chief complaint: RT ankle swollen Narrative: The patient is a 59-year-old male with COPD who was admitted to the hospital November 02 2024 with an ulcer on the right 5th toe with acute infection. The patient reports that the ulcer developed after injuring his foot however he is not exactly sure exactly how long the ulcer has been present. 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 Cultures have grown MRSA. On November 10 2023 the patient underwent debridement and bone biopsy and the wound was closed with sutures. The redness and swelling have been steadily improving. The patient reports only mild pain. He reports a good appetite and denies having any other recent changes in his overall health. The patient was noted to have an ESR 58 and CRP 0.5. The patient is currently receiving daptomycin and arrangements have been made for him to be discharged home later today. Meds Home Medications and Allergies Home Medications Medication Instructions Recorded Confirmed Type No Known Home Medications 11/02/24 11/02/24 History oxycodone 5 mg tablet 5 mg PO Q6H PRN pain 7 days #20 11/15/24 Rx tabs Allergies Allergy/AdvReac Type Severity Reaction Status Date / Time No Known Drug Allergies Allergy Verified 11/10/24 17:23 Review of Systems Cardiovascular Comments: Occasional chest pain Respiratory Comments: Shortness of breath with exertion Neurologic Comments: Numbness of feet Exam Vital Signs (past 8 hours): Oxygen Delivery Method Room Air Oxygen Flow Rate 0 Narrative Exam Narrative: Thin male alert and oriented no apparent distress Resp Other: Unlabored Skin Other: Incision lateral aspect of the right 5th toe with separation of the skin edges and maceration of the skin, no erythema noted Neuro Other: Decreased lower extremity sensation Objective Labs 11/14/24 04:28 11/14/24 04:28 PFSH Social History household members: significant other Tobacco & Substance Use Smoking Status: Former smoker alcohol intake: current Assessment & Plan Assessment and plan (1) Osteomyelitis: Qualifiers: Laterality: right Osteomyelitis location: foot Osteomyelitis type: c hronic multifocal Qualified Code(s): M86.371 - Chronic multifocal osteomyelitis, right ankle and foot Status: Acute (2) Disruption of external operation (surgical) wound, not elsewhere classified, initial encounter: Status: Acute (3) Other specified mononeuropathies of bilateral lower limbs: Status: Acute Assessment & Plan narrative: Partial dehiscence of incision lateral aspect right 5th toe with extensive osteomyelitis. Recommend daily application of Iodosorb and dress with dry gauze, pressure offloading with postop surgical shoe, continue antibiotic therapy, follow up at wound center after discharge. Explained to the patient that an amputation may ultimately be necessary however he is not willing to consider amputation at this time. Time-Based Coding :: 45MINUTES] spent with patient and on the chart (including review of chart, obtaining history, exam, reviewing outside data, placing orders, documenting exam and treatment plan, and counseling patient) on [11/16/24].
--- NOTE | 2024-11-16 14:03 | P.DS_ITS ---
History of Present Illness History of Present Illness Chief complaint: RT ankle swollen Narrative: From H&P: The patient was a 59-year-old male with a foot wound. This has been ongoing for least a month and he presented to the urgent care today because of progressive swelling. There were x-rays performed which was concerning for osteomyelitis and he was forwarded to the emergency department. The patient was noted increased swelling recently as well as a purulent discharge. He denies any fevers, or chills. He was not have a history of neuropathy, or diabetes. The patient appears to have a history of PTSD and is extremely needle phobic. He became very anxious when any discussions about a PICC line happened tonight. The patient notes that this all began with a twisting of the ankle type injury that is just progressed. His foot has been hot and there has been drainage is noted above. In fact, the foot is swollen to about 150% the size of his left foot. He has been able to weight bear. 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 has not gotten monthly check from [employer]. 11/03/24 12:48 Consult to Orthopedic Surgery Routine Comment: Consulting Provider: Darwin Becker Reason for consultation: foot infection Has provider been notified: Yes 11/16/24 09:19 Consult to Wound Care Routine Comment: Consulting Provider: Molly- Wound Care Discharge provider: Papi Archer MD Summary Hospital Course Discharge Diagnosis: 1.??? R foot cellulitis/R 5th digit osteomyelitis, present on admission and improved. Cellulitis is continuing to improve with underlying abscess and presumed osteomyelitis, s/p I&D and bone biopsy of left 5th proximal phalanx 11/10/2024. Pathology shows findings consistent with acute osteomyelitis. Continue on Zosyn and daptomycin. Narrow to dapto only once anaerobic cultures finalize per ID physician. - operative cultures with MRSA - will need to wait on anaerobic cultures prior to narrowing to just daptomycin. - referral sent to ID physician, awaiting confirmation of discharge plan as ID provider recommends more monitored setting for antibiotics, ID provider not wanting to follow as outpatient unless in monitored setting. Discussed with ID provider. - Bi weekly labs ESR, CRP, CK, CBC, CMP. Done 11/14, will repeat 11/16. - plan for discharge with PCP to follow antibiotics, however was to establish care on 11/16. 2.??? Alcohol dependence, presently in remission, stable. Per report, patient has not had alcohol in the last 4 months. At this time, he has not showing any symptoms or signs of withdrawal. 3.??? Anemia, stable. Mild and stable. 4.??? Elevated lipase on admission, present on admission and improved. Lipase was elevated at 401 on admission. Is not complaining of any abdominal pain, nausea or vomiting. Will monitor for any symptoms or signs of pancreatitis 5.??? Pancytopenia, stable Hospital Course: The patient was admitted with soft tissue infection and osteomyelitis by imaging. He was treated with empiric antibiotics. The patient had clinical improvement of his foot. Orthopedics was consulted early and has admission and felt that he did not require any surgical intervention. Ultimately, were again re he was discharged with a PICC line in place for access. Quested see the patient for a debridement or bone biopsy and did perform a bone biopsy in swallows irrigation of the right 5th toe. Cultures yielded MRSA. The case was discussed with Dr. Perdue. The patient improved clinically and we will be discharged on daptomycin. The patient was seen by wound in the day of discharge and we will follow up with the Wound Care Clinic as well. Recommendations are for antibiotics for 4-6 weeks. In addition by weekly labs including sed rate, CRP, CK, CBC, and CMP. Status at Discharge Cognitive/behavioral status at discharge: oriented Functional status at discharge: independent ambulation Overall status at discharge: patient is back to baseline Time Spent with Patient Time spent: Greater than 30 minutes Exam Vital Signs (past 8 hours): Oxygen Delivery Method Room Air Oxygen Flow Rate 0 Narrative Exam Narrative: NAD, alert and oriented. Fluent speech. Lungs are clear, normal rate and effort. Heart is regular, no murmur gallop or rub. Abdomen is soft, non distended. Extremities are free of edema. Objective Labs 11/14/24 04:28 11/14/24 04:28 Labs: Chest x-ray: FINDINGS: PICC was placed by the intravenous therapy team from the left side. Fluoroscopic spot film demonstrates the tip of PICC projecting to the area of mid SVC. IMPRESSION: Tip of PICC projects to the area of mid SVC. Foot MRI: 1. Small soft tissue ulceration about the 5th proximal phalanx, with 7 mm fluid collection in the deep subcutaneous fat. Subjacent osteomyelitis of the 5th proximal phalanx with pathologic fracture, and osteomyelitis of the 5th mid and distal phalanx. Osteonecrosis of the distal fracture fragment of the 5th proximal phalanx. 2. Septic arthritis/osteomyelitis versus erosive arthropathy about the 1st interphalangeal joint. 3. Avascular necrosis of the 2nd, 3rd, and 4th metatarsal head with diffuse reactive marrow edema extending to the proximal diaphysis. Superimposed osteomyelitis of the 2nd, 3rd, and 4th metatarsal head cannot be excluded. Chest x-ray: No acute cardiopulmonary abnormality is seen. Foot x-ray: Bony erosion across the 1st PIP joint, 5th proximal phalanx shaft and distal 5th phalanx. Findings are highly concerning for osteomyelitis. Recommend MRI with contrast. [facility] Social History household members: significant other Smoking Status: Former smoker alcohol intake: current Discharge Assessment & Plan Assessment and Plan Assessment: 1.??? R foot cellulitis/R 5th digit osteomyelitis, present on admission and improved. Cellulitis is continuing to improve with underlying abscess and presumed osteomyelitis, s/p I&D and bone biopsy of left 5th proximal phalanx 11/10/2024. Pathology shows findings consistent with acute osteomyelitis. Continue on Zosyn and daptomycin. Narrow to dapto only once anaerobic cultures finalize per ID physician. - operative cultures with MRSA - will need to wait on anaerobic cultures prior to narrowing to just daptomycin. - referral sent to ID physician, awaiting confirmation of discharge plan as ID provider recommends more monitored setting for antibiotics, ID provider not wanting to follow as outpatient unless in monitored setting. Discussed with ID provider (Bakari). - Bi weekly labs ESR, CRP, CK, CBC, CMP. Done 11/14, will repeat 11/16. - plan for discharge with PCP to follow antibiotics, however was to establish care on 11/16. Plan of Treatment: Continue daptomycin outpatient for 4-6 weeks. Wound care we will follow up with his wound. By weekly labs as noted. Discharge Plan Discharge Plan Patient Disposition: Home Provider Discharge Comment: Stable for discharge, we will follow up with outpatient wound care and outpatient infusions for antibiotics. Discharge orders & Medications Prescriptions: New daptomycin 500 mg recon soln 544 mg IV Q24H Qty: 42 0RF Rx Instructions: administer over 30 mins oxycodone 5 mg tablet 5 mg PO Q6H PRN (Reason: pain) 7 Days Qty: 20 0RF lorazepam 1 mg Tablet 1 mg PO Q4HR PRN (Reason: Anxiety) Qty: 20 0RF Medication counseling provided by Pharmacist: No Follow up/Referrals: Doctor Bateman MD [Primary Care Provider] - Other Ambulatory Orders: Referral to: (Schedule) Timeframe: 1 Week Location: Determined by Patient Ordered By: Guille Isaacs Discharge Health Status Multidrug resistant organism: MRSA Diet/Activity/Treatments Diet: Diet as Tolerated Skin/Wound/Dressing Care Report to your healthcare provider any signs of infection, such as:: chills, fever, increased pain, unusual drainage and unusual redness Visit Report/Discharge Packet Instructions: Osteomyelitis, Methicillin-Resistant Staph Infection, Peripherally Inserted Central Catheter Stand Alone Forms: Patient Portal/API Discharge Data Primary Care Provider: Doctor Fransico Quality VTE Deep Vein Thrombosis/Pulmonary Embolism Present on Admission: No
--- NOTE | 2024-11-16 15:34 | CM.DPC ---
DCP Cont. Reviewed EMR and team rounds for status updates. Pt was medically cleared for home d/c today. He has a plan to come to Acute Care at 11:30 Friday 11/17-Monday 11/20 for his daily IV ABO dose. He will start at the Infusion Center at 11:30am on Tuesday 11/21. He is now set up with Wound Care clinic, and they will call him with his schedule. He expressed understanding of this plan. No further d/c needs identified at this time.
--- NOTE | 2024-11-16 15:56 | PC.NURSE ---
Discharge note: Patient awake, alert, independently ambulatory. Dressing changed to RLE as ordered. LUE PICC line dressing changed per protocol. Discharge instructions given to both patient and spouse, discussed importance of F/U with wound care and outpatient infusion. Emphasized importance of new Rx and side effects, signs of worsening symptoms, and treatment adherence. Both patient and spouse verbalized understanding of instructions. Discharged via private vehicle accompanied by spouse. Rx to be picked up on way to temporary living arrangements.
== END 2024-11-16 16:05 | disposition home or self-care (01) | DRG 478 ==
LOC: ED 11:56 → AC 16:56
PROVIDERS: Internal Medicine; Orthopaedic Surgery Foot and Ankle Surgery; Admitting Provider Hospitalist; Emergency Provider Student in an Organized Health Care Education/Training Program; Referring Provider Student in an Organized Health Care Education/Training Program; Visit Provider Hospitalist
PROC: 0Q9Q0ZZ Drainage of Right Toe Phalanx, Open Approach (ICD-10-PCS; CPT 38221; principal; 2024-11-10 17:15)
DX: M86.171 Other acute osteomyelitis, right ankle and foot (principal); D61.818 Other pancytopenia; M84.475A Pathological fracture, left foot, initial encounter for fracture; L03.115 Cellulitis of right lower limb; T81.31XA Disruption of external operation (surgical) wound, not elsewhere classified, initial encounter; M87.9 Osteonecrosis, unspecified; Z59.02 Unsheltered homelessness; M85.871 Other specified disorders of bone density and structure, right ankle and foot; F43.10 Post-traumatic stress disorder, unspecified; F10.21 Alcohol dependence, in remission; D64.9 Anemia, unspecified; R74.8 Abnormal levels of other serum enzymes; J44.9 Chronic obstructive pulmonary disease, unspecified; B95.62 Methicillin resistant Staphylococcus aureus infection as the cause of diseases classified elsewhere; Y84.8 Other medical procedures as the cause of abnormal reaction of the patient, or of later complication, without mention of misadventure at the time of the procedure; G57.93 Unspecified mononeuropathy of bilateral lower limbs; Z87.891 Personal history of nicotine dependence
CPT/HCPCS: 36415; 36569; 71045; 73610; 73630; 73720; 80048; 80053; 80202; 81003; 81015; 82550; 83605; 83690; 84145; 85025; 85610; 85651; 85730; 86140; 87040; 87070; 87075; 87186; 87205; 87797; 87801; 93005; 96365; 96366; 96367; 99233; 99284; 99285; A9579; J0692; J0878; J1100; J1642; J1885; J2250; J2405; J2543; J2704; J3010

== ENCOUNTER 2024-11-27 01:08 | Emergency (ER) | payer OTHER, SELFPAY ==
[2024-11-02 18:40] VITALS: BMI 19.8
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
--- NOTE | 2024-11-27 03:08 | ED_ITS ---
HPI - General Adult <Pb Groves MD - Last Filed: 11/27/24 15:19> General Chief complaint: Toxicology Problem Stated complaint: ETOH Time Seen by Provider: 11/27/24 02:10 Source: patient Mode of arrival: Ambulatory History of Present Illness HPI narrative: 59-year-old male had been drinking alcohol, brought here by police as he supposedly did not have anybody at his home to watch him, he believes his is at home, however his can not drive at night. He had an episode of emesis earlier today nonbloody. He denies pain in his head, neck, abdomen. Denies thoughts of hurting himself or others. Related Data Previous Rx's Medication Instructions Recorded daptomycin 500 mg intravenous 544 mg IV Q24H #42 ea 11/15/24 solution lorazepam 1 mg tablet 1 mg PO Q4HR PRN Anxiety #20 tabs 11/16/24 docusate sodium 100 mg capsule 100 mg PO BID #60 caps 11/21/24 (Colace) mineral oil (Fleet Mineral Oil 118 ml DC DAILY PRN constipation 11/21/24 enema) #133 mL polyethylene glycol 3350 17 8.5 g PO DAILY PRN constipation 4 11/21/24 gram/dose oral powder (Miralax) weeks #119 grams sennosides 8.6 mg capsule (senna) 8.6 mg PO DAILY PRN constipation 11/21/24 #30 caps Allergies Allergy/AdvReac Type Severity Reaction Status Date / Time No Known Drug Allergies Allergy Verified 11/23/24 07:25 Patient History <Pb Groves MD - Last Filed: 11/27/24 15:19> Social History household members: significant other Smoking Status: Never smoker alcohol intake: current Smoking Status: Never smoker alcohol intake frequency: a few times a week Alcohol type: hard liquor Exam <Pb Groves MD - Last Filed: 11/27/24 15:19> Narrative Exam Narrative: GENERAL: Well-developed patient, in mild distress. Smell of alcohol on breath. Slurred speech, rambling speech, but generally directable and cooperative. HEAD: Atraumatic. Normocephalic. EYES: Pupils equal round and reactive. Extraocular motions intact. No scleral icterus. No injection or drainage. ENT: Nose without bleeding, purulent drainage. Throat without erythema, tonsillar hypertrophy or exudate. Airway patent. NECK: Trachea midline. Non tender CARDIOVASCULAR: Regular rate and rhythm without murmurs, gallops, or rubs. RESPIRATORY: Clear to auscultation. Breath sounds equal bilaterally. No wheezes, rales, or rhonchi. GASTROINTESTINAL: Abdomen soft, non-tender, nondistended. EXTREMITIES: No edema or joint tenderness. BACK: Nontender without deformity or crepitance. No flank tenderness. NEURO: AOx3. Motor functions grossly nonfocal SKIN: No rash or erythema of visible areas Initial Vital Signs Initial Vital Signs: Vital Signs Pulse Rate 93 H 11/27/24 08:19 Respiratory Rate 18 11/27/24 08:19 Blood Pressure 135/83 11/27/24 08:19 Pulse Oximetry 97 11/27/24 08:19 Oxygen Delivery Method Room Air 11/27/24 08:19 <Guille Yepez DO - Last Filed: 11/27/24 08:31> Initial Vital Signs Initial Vital Signs: Vital Signs Pulse Rate 93 H 11/27/24 08:19 Respiratory Rate 18 11/27/24 08:19 Blood Pressure 135/83 11/27/24 08:19 Pulse Oximetry 97 11/27/24 08:19 Oxygen Delivery Method Room Air 11/27/24 08:19 Course <Pb Groves MD - Last Filed: 11/27/24 15:19> Orders Ordered: ED Orders 11/27/24 05:56 Ethanol (ETOH) Stat Vital Signs Vital signs: Vital Signs - 8 hr 11/27/24 08:19 Pulse Rate 93 H Respiratory Rate 18 Blood Pressure 135/83 Pulse Oximetry 97 Oxygen Delivery Method Room Air <Guille Yepez DO - Last Filed: 11/27/24 08:31> Orders Ordered: ED Orders 11/27/24 05:56 Ethanol (ETOH) Stat Vital Signs Vital signs: Vital Signs - 8 hr 11/27/24 08:19 Pulse Rate 93 H Respiratory Rate 18 Blood Pressure 135/83 Pulse Oximetry 97 Oxygen Delivery Method Room Air Medical Decision Making <Pb Gorves MD - Last Filed: 11/27/24 15:19> Lab Data Lab results narrative: Ethanol level 324 at 0556 noted. Labs: Lab Results 11/27/24 Range/Units 05:56 Ethyl Alcohol 324 H ( - 10) mg/dL [facility] Narrative Medical decision making narrative: 59-year-old male admits to alcohol use, has slurred speech, no obvious craniofacial or truncal or extremity trauma. No SI/HI. He believes that his can come pick him up but she apparently does not drive at night. Slurred speech, not attempted for ambulation at this time. 0630, patient had persisting slurred speech, no obvious trauma, alcohol level sent, BAL 324 at 0556 noted. Await further sobriety to attempt ambulation and safe discharge home. Patient currently not expressing desire for detox. Possib ly home with family when sober later today. No alcohol withdrawal symptoms at present. 0700, signed out to Dr Yepez 2. @ 0700: Patient is signed out to me by overnight provider. Patient p resented via ambulance for alcohol intoxication. Patient with blood alcohol level 324 at around 6:00 a.m.. Patient currently calm and cooperative at this time, he states that he does have a history of alcohol abuse, not want any help/discussion with social media strategist, denies any SI HI, states that his can pick him up but she does not drive at night therefore we will contact patient's and have him be picking up in the next few hours. We will continue to monitor. Patient currently denying any other symptoms such as headache visual disturbances chest pain shortness breath fever chills nausea vomiting abdominal pain or any other GI/ symptoms time. 0830: Patient re-evaluated by me, patient clinically sober at this time is able to answer all questions appropriately no focal deficits, he was able to stand bear weight ambulate unassisted here in the emergency department to the restroom. Patient states that he is staying at a motel nearby, family member will come pick patient up. Did ask patient if he wanted to talk to social work he states he does not. He is not having any other complaints would like to be discharged. Patient was given strict return precautions he verbalized understanding of this and agrees to being discharged home with outpatient follow up <Guille Yepez, DO - Last Filed: 11/27/24 08:31> Lab Data Labs: Lab Results 11/27/24 Range/Units 05:56 Ethyl Alcohol 324 H ( - 10) mg/dL MDM Narrative Medical decision making narrative: 59-year-old male admits to alcohol use, has slurred speech, no obvious craniofacial or truncal or extremity trauma. No SI/HI. He believes that his can come pick him up but she apparently does not drive at night. Slurred speech, not attempted for ambulation at this time. 0630, patient had persisting slurred speech, no obvious trauma, alcohol level sent, BAL 324 at 0556 noted. Await further sobriety to attempt ambulation and safe discharge home. Patient currently not expressing desire for detox. Possibly with family. 0700, signed out to Dr Yepez 2.17.25 @ 0700: Patient is signed out to me by overnight provider. Patient presented via ambulance for alcohol intoxication. Patient with blood alcohol level 324 at around 6:00 a.m.. Patient currently calm and cooperative at this time, he states that he does have a history of alcohol abuse, not want any help/discussion with social media strategist, denies any SI HI, states that his can pick him up but she does not drive at night therefore we will contact patient's and have him be picking up in the next few hours. We will continue to monitor. Patient currently denying any other symptoms such as headache visual disturbances chest pain shortness breath fever chills nausea vomiting abdominal pain or any other GI/ symptoms time. 0830: Patient re-evaluated by me, patient clinically sober at this time is able to answer all questions appropriately no focal deficits, he was able to stand bear weight ambulate unassisted here in the emergency department to the restroom. Patient states that he is staying at a motel nearby, family member will come pick patient up. Did ask patient if he wanted to talk to social work he states he does not. He is not having any other complaints would like to be discharged. Patient was given strict return precautions he verbalized understanding of this and agrees to being discharged home with outpatient follow up Discharge Plan Departure Patient Disposition: Home Clinical Impression: Alcohol intoxication Instructions: DI for Alcohol Use Disorder Activity Restrictions/Additional Instructions: Please follow up with primary care in outpatient setting Please read the discharge instructions sheet carefully and bring all papers to all doctor follow-up visits, as it may contain information that your doctor may want to see. Disease processes change and evolve, if your symptoms worsen or if you develop any new symptoms that are concerning to you please return for evaluation. Your evaluation today does not show any evidence of any life- threatening/serious illnesses requiring admission to the hospital or surgery. Please follow-up with your doctor for re-evaluation in approximately 1 day. Seek immediate medical attention for any worrisome symptoms. *If you do not have a primary care provider please contact the [facility] Resource line at [phone]. They will ask some questions about your medical history and help get you set up with a doctor in the community. Prescriptions: No Action docusate sodium [Colace] 100 mg capsule 100 mg PO BID Qty: 60 0RF Rx Instructions: Decreased to 100 mg q.d. initially if loose stools; if continued loose stools then may hold polyethylene glycol 3350 [Miralax] 17 gram/dose powder 8.5 g PO DAILY PRN (Reason: constipation) 28 Days Qty: 119 0RF mineral oil [Fleet Mineral Oil] Enema 118 ml DC DAILY PRN (Reason: constipation) Qty: 133 4RF Rx Instructions: discard any unused portion senna 8.6 mg capsule 8.6 mg PO DAILY PRN (Reason: constipation) Qty: 30 0RF daptomycin 500 mg recon soln 544 mg IV Q24H Qty: 42 0RF Rx Instructions: administer over 30 mins lorazepam 1 mg Tablet 1 mg PO Q4HR PRN (Reason: Anxiety) Qty: 20 0RF Referrals: Miscellaneous,Doctor, MD [Primary Care Provider] - Stand Alone Forms: Patient Portal/API/Survey
--- NOTE | 2024-11-27 04:08 | PC.NURSE ---
Patient arrives via ems [facility]. Patient got in argument with . She told him to fuck off so he left [facility] house inebriated. EMS familiar with patient and his . EMS offered to take the patient home but police wanted him brought to the hospital.
[2024-11-27 06:29] LABS: Ethanol (ETOH) 324 mg/dL
[2024-11-27 08:19] VITALS: BP 135/83; PULSE 93; RESP 18; O2SAT 97
--- NOTE | 2024-11-27 08:38 | PC.NURSE ---
WEATHER FORECASTER Note: At 0820 patient ambulated under his own power to the restroom needing no assistance. Offered patient a change of clothing and he declined.
--- NOTE | 2024-11-27 10:54 | PC.NURSE ---
Received multiple calls from KRISTOPHER Wylie at infusion clinic. Advised Inessa that pt is no longer in department and has been DC'd home. Concern from Inessa regarding pt's foot infection, need for abx infusion and to be seen for his appts with Dr Abrams at [facility]. Advised this RN that pt needs his PICC line removed and that we should call pt back or transfer him to [facility]. Advised pt is DC'd from the ED. Pt was not seen for his foot infection. Pt has no order for PICC line removal therefore, it was left in place. Advised that his scheduled infusions are not something we can take care of and infusion clinic needs to contact the pt directly to receive care.
== END 2024-11-27 08:42 | disposition home or self-care (01) ==
PROVIDERS: Emergency Medicine; Emergency Provider Student in an Organized Health Care Education/Training Program
DX: F10.129 Alcohol abuse with intoxication, unspecified (principal); Y90.8 Blood alcohol level of 240 mg/100 ml or more; R47.81 Slurred speech
CPT/HCPCS: 80320; 99282

== ENCOUNTER 2024-11-27 11:34 | Emergency (ER) | payer OTHER, SELFPAY ==
[2024-11-02 18:40] VITALS: BMI 19.8
== END 2024-11-27 12:00 | disposition left against medical advice (07) ==
PROVIDERS: Emergency Provider Student in an Organized Health Care Education/Training Program

== ENCOUNTER → 2024-11-28 14:00 | Oncology outpatient (ONC) | payer OTHER, SELFPAY ==
[2024-11-02 18:40] VITALS: BMI 19.8
[2024-11-20 12:02] VITALS: BP 145/94; PULSE 114; RESP 18; TEMP 37.1; O2SAT 97
[2024-11-20] MEDS: SODIUM CHLORIDE 0.9% IV (12:34)
[2024-11-20] MEDS: DAPTOMYCIN IV (12:34)
[2024-11-21 11:39] VITALS: BP 143/92; PULSE 102; RESP 18; TEMP 36.9; O2SAT 99
[2024-11-21 12:07] LABS: Add Manual Diff / Slide Review NO; Basophils Absolute Auto 0 /uL (0-100); Basophils Percent Auto 0.6 % (0-2); Eosinophils Absolute Auto 0 /uL (0-450); Eosinophils Percent Auto 0.9 % (2-4); Hematocrit 37.7 % (41-53); Hemoglobin 12.8 g/dL (13.5-17.5); Lymphocytes Absolute Auto 1200 /uL (1100-4500); Lymphocytes Percent Auto 27.9 % (25-40); Mean Corpuscular HGB Conc 33.9 % (30-36); Mean Corpuscular Hemoglobin 32.7 PG (26-34); Mean Corpuscular Volume 96.4 fL (80-100); Monocytes Absolute Auto 300 /uL (0-900); Monocytes Percent Auto 6.4 % (3-14); Neutrophils Absolute Auto 2700 /uL (1500-7000); Neutrophils Percent Auto 64.2 % (50-75); Platelet Count 135 X10^3/uL (150-400); Red Blood Cell Count 3.91 X10^6/uL (4.5-5.9); Red Cell Distribution Width 13.4 % (11.6-14.8); White Blood Cell Count 4.3 X10^3/uL (4.5-11.0)
[2024-11-21 12:25] LABS: Alanine Aminotransferase 114 IU/L (<50); Albumin 4.2 g/dL (3.5-5.0); Alkaline Phosphatase 109 U/L (38-126); Aspartate Aminotransferase 104 IU/L (17-59); BUN Creatinine Ratio 25.6 (6-22); Bilirubin Total 1.3 mg/dL (0.2-1.3); Blood Urea Nitrogen 34 mg/dL (9-20); C-Reactive Protein Quant 1.3 mg/dL (<1.0); Calcium 8.7 mg/dL (8.4-10.2); Carbon Dioxide 22 mmol/L (22-32); Chloride 103 mmol/L (98-107); Creatine Kinase 174 U/L (55-170); Erythrocyte Sedimentation Rate 47 MM/HR (0-15); Estimated Glomerular Filt Rate > 60 mL/min (>60); Globulin 4.1 g/dL (1.7-4.1); Glucose 113 mg/dL (80-110); HEMOLYSIS 16 (0-50); Potassium 3.8 mmol/L (3.4-5.1); Sodium 135 mmol/L (137-145); Total Protein 8.3 g/dL (6.3-8.2)
[2024-11-21] MEDS: DAPTOMYCIN IV (12:25)
[2024-11-21] MEDS: SODIUM CHLORIDE 0.9% IV (12:25)
[2024-11-22 11:21] VITALS: BP 144/82; PULSE 99; RESP 18; TEMP 36.2; O2SAT 97
--- NOTE | 2024-11-22 12:35 | PC.NURSE ---
CK and CRP elevated: this nurse informed Dr. Archer who conferred with Infectious Disease (Dr. Villegas) and then informed this nurse that Daptomycin should be discontinued here and patient was instructed per Dr. Archer's order to go JESSIE to [facility] ER so that he can then be seen by both Dr. Mila Villegas and Podiatry at [facility]. Patient voiced understanding and that he would try to get a ride from his daughter. This nurse tried to reach patient's partner Kimberley to inform her of the need for him to get over to [place]. Two calls made but only a recording that number [phone], as found in EMR, is not in service.
--- NOTE | 2024-11-22 15:19 | PC.NURSE ---
This nurse informed Kimberley, patient's life partner, of the need for him to get to the ER at [facility]. She stated that they are working on getting the daughter to transport him but it might not be until tomorrow. This nurse spoke with Tony, chuck splitter at [address] [place] [address] Marsh's nurse Estela to both assist with arranging transport for today if possible and to communicate with patient whether a change in the appointment scheduled for 8am tomorrow needs to be changed.
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
--- NOTE | 2024-11-27 16:42 | PC.NURSE ---
Voicemail received from Kimberley, patient's partner, difficult to understand. This nurse called office of Dr. Villegas, Infectious Disease office at [facility] to inquire if patient had showed up last week as advised on 11/21 and 11/23 (see previous notes), answer negative. Received several calls back from Dr. Villegas very concerned that the PICC line needs to be pulled as the patient cannot keep it safely in his condition. Patient was discharged from ER this am. This nurse spoke with patient asking him to come to ER again to have PICC line removed. Patient obviously inebriated with no sensible response. Kimberley did bring him in sometime before noon. I was called several hours later by Dr. Villegas stating that the patient had left the ER waiting area before being seen. I called patient and Kimberley again requesting he come into the infusion center at 4 pm today and obtained an order from Dr. Archer for removal of the PICC line. Patient did not show. Request for removal of PICC line and evaluation of infected wound with possible admit as advised by Dr. Villegas was communicated per voicemail to ER physician and to ER charge nurse in the case that the patient would show up there again.
--- NOTE | 2024-11-28 10:29 | PC.NURSE ---
Call made to patient requesting him to come in to the infusion center between 1400 and 1500 today to have labs drawn and PICC line removed. Patient confirmed that he still has a PICC line. Patient responded I am drunker than a skunk. then ok. Time of appt was confirmed with Kimberley who said she would do her best to get him in with the help of their daughter stating, he listens better to her.
--- NOTE | 2024-11-28 14:56 | PC.NURSE ---
Trying to contact patient RE visit today for peripheral stick labs, and removal of picc line: [phone] -- phone number attempted multiple times, no answer, unable to leave voicemail message - mailbox full [phone] -- attempted to call # [phone] but no answer and message that number is not in service plays then phone disconnects & attempted final time: no answer, unable to leave voicemail message - mailbox full
[2024-11-28 17:00] VITALS: BP 152/94; PULSE 92; RESP 16; TEMP 37.1
[2024-11-28 17:37] LABS: Albumin 4.4 g/dL (3.5-5.0); Alkaline Phosphatase 127 U/L (38-126); BUN Creatinine Ratio 11.8 (6-22); Bilirubin Total 0.9 mg/dL (0.2-1.3); Blood Urea Nitrogen 16 mg/dL (9-20); C-Reactive Protein Quant 0.7 mg/dL (<1.0); Calcium 8.5 mg/dL (8.4-10.2); Carbon Dioxide 25 mmol/L (22-32); Chloride 105 mmol/L (98-107); Creatine Kinase 270 U/L (55-170); Estimated Glomerular Filt Rate 60 mL/min (>60); Globulin 4.5 g/dL (1.7-4.1); Glucose 116 mg/dL (80-110); HEMOLYSIS < 15 (0-50); Potassium 4.9 mmol/L (3.4-5.1); Sodium 145 mmol/L (137-145); Total Protein 8.9 g/dL (6.3-8.2)
[2024-11-28 18:05] LABS: Alanine Aminotransferase 99 IU/L (<50); Aspartate Aminotransferase 106 IU/L (17-59)
--- NOTE | 2024-11-29 08:45 | PC.NURSE ---
PICC line removed on 11/28/24 as patient did not follow instructions to see ER/Dr. Villegas at [facility] as given on 11/22/24. Dr. Archer gave order for PICC line removal to decrease chance of additional infection due to patient non-compliance and recurrence of drinking alcohol. Labs were drawn peripherally with difficulty so that CBC was not possible with the amount of blood obtained. Patient was still not fully sober at the time he came in to the clinic. His appearance required at least 4 phone calls from this nurse to speak with him as well as his with patient finally arriving at 1645. Left foot appears to still be bandaged under his sock, he states a little pain but was walking with only minimal limping. No swelling or erythema of lower left leg. PICC line insertion site showed no signs of infection and line was removed easily and completely. No other signs of infection.
--- NOTE | 2024-11-29 15:53 | PC.NURSE ---
Foot wound: patient has not had wound evaluated since discharge. This nurse informed him yesterday that I would call today about an appointment at wound care. An appt was available at 1400 today but multiple calls (10) went to voicemail where the mailbox is full.
--- NOTE | 2024-11-30 17:28 | PC.NURSE ---
Advised walk-in clinic visit this am to patient's Kimberley to have his foot wound looked at. She responded that she would work on getting patient there. As of this writing no notes showing a visit. Attempted to reach patient again but phone goes to voicemail and full mailbox - unable to leave voicemail.
--- NOTE | 2024-12-05 14:02 | PC.NURSE ---
PCP'S NURSE RADHA INFORMED AT 930AM ON 12/04 THAT PATIENT HAS NOT YET SHOWN UP AT THE WALK IN CLINIC OR CALLED. THIS NURSE ALSO MADE AND TRIED PER TELEPHONE CONVERSATION WITH PATIENT'S TO GET PATIENT TO GO TO A WOUND CLINIC APPT LAST THURSDAY 11/30 AT 2PM. PATIENT DID NOT SHOW UP. RADHA STATED THAT THEY WILL WORK ON GETTING HIM INTO DR ELLSWORTH TO ESTABLISH PCP CARE.
== END ==
PROVIDERS: Referring Provider Family Medicine; Visit Provider Family Medicine
DX: M86.9 Osteomyelitis, unspecified (principal)
CPT/HCPCS: 36415; 36592; 80053; 82550; 85025; 85651; 86140; 96365; J0878

== ENCOUNTER 2024-12-07 05:32 | Emergency (ER) | payer OTHER, SELFPAY ==
[2024-11-02 18:40] VITALS: BMI 19.8
--- NOTE | 2024-12-07 05:37 | ED.GENADULT ---
HPI - General Adult General Stated complaint: fit for skilled nursing Time Seen by Provider: 12/07/24 05:37 History of Present Illness HPI narrative: 59-year-old gentleman with a history of alcohol use disorder brought in by police for evaluation prior to incarceration. Apparently is alcohol level in the field was high enough that further evaluation was felt to be appropriate. Patient has slightly slurred speech, does appear to be slightly intoxicated but is able to speak in complete sentences and once the officer steps out of the room is more cooperative with the exam. He states that he has felt nauseated for 3 weeks. He has no other specific complaints. He is somewhat disgruntled that he has been apprehended by police Related Data Previous Rx's Medication Instructions Recorded daptomycin 500 mg intravenous 544 mg IV Q24H #42 ea 11/15/24 solution lorazepam 1 mg tablet 1 mg PO Q4HR PRN Anxiety #20 tabs 11/16/24 docusate sodium 100 mg capsule 100 mg PO BID #60 caps 11/21/24 (Colace) mineral oil (Fleet Mineral Oil 118 ml ND DAILY PRN constipation 11/21/24 enema) #133 mL polyethylene glycol 3350 17 8.5 g PO DAILY PRN constipation 4 11/21/24 gram/dose oral powder (Miralax) weeks #119 grams sennosides 8.6 mg capsule (senna) 8.6 mg PO DAILY PRN constipation 11/21/24 #30 caps Allergies Allergy/AdvReac Type Severity Reaction Status Date / Time No Known Drug Allergies Allergy Verified 11/23/24 07:25 Review of Systems Review of Systems Narrative: Pertinent positive and negative findings as per HPI Patient History Medical History (Updated 12/07/24 @ 05:45 by Veronica Shelton MD) Alcohol use disorder Social History household members: significant other Smoking Status: Never smoker alcohol intake: current Smoking Status: Never smoker alcohol intake frequency: a few times a week Alcohol type: hard liquor Exam Narrative Exam Narrative: General: Chronically ill-appearing, disheveled, mildly intoxicated with slightly slurred speech and unsteady gait HEENT: Moist mucous membranes, normal sclera with reactive pupils, Respiratory: Lungs are clear to auscultation, no wheezing no rales no rhonchi. Full and symmetrical air movement Cardiac: Regular rate and rhythm no murmurs no bruits Abdomen: Soft, Neurologic: Moving all extremities, slightly unsteady gait, slightly slurred speech Extremities: No trauma, Psych: Cooperative with physical exam bit asking precinct police captain if he can speak to his food quality technician Medical Decision Making MDM Narrative Medical decision making narrative: 59-year-old gentleman with alcohol use disorder currently intoxicated as evidenced by slurred speech and unsteady gait brought in by precinct police captain with request to be evaluated prior to incarceration. Gentleman is not showing any signs of acute viral or bacterial illness. Aside from his mild intoxication he is medically cleared and fit for skilled nursing. Should he be kept overnight I suspect there was high probability that he will her acute withdrawal symptoms that we will need to be managed. At this time he is safe for discharge from the emergency department Discharge Plan Departure Patient Disposition: Home Clinical Impression: Alcohol use disorder Acute alcohol intoxication Qualifiers: Complication of substance-induced condition: uncomplicated Qualified Code(s): F10.920 - Alcohol use, unspecified with intoxication, uncomplicated Activity Restrictions/Additional Instructions: You were seen in the emergency department this evening Clinically intoxicated and smells of alcohol. There was no evidence of significant physical harm based on clinical exam and vital signs today. For skilled nursing staff, do consider possibility of alcohol withdrawal symptoms as he gianluca over the course of the evening Patient is fit for skilled nursing Prescriptions: No Action docusate sodium [Colace] 100 mg capsule 100 mg PO BID Qty: 60 0RF Rx Instructions: Decreased to 100 mg q.d. initially if loose stools; if continued loose stools then may hold polyethylene glycol 3350 [Miralax] 17 gram/dose powder 8.5 g PO DAILY PRN (Reason: constipation) 28 Days Qty: 119 0RF mineral oil [Fleet Mineral Oil] Enema 118 ml ND DAILY PRN (Reason: constipation) Qty: 133 4RF Rx Instructions: discard any unused portion senna 8.6 mg capsule 8.6 mg PO DAILY PRN (Reason: constipation) Qty: 30 0RF daptomycin 500 mg recon soln 544 mg IV Q24H Qty: 42 0RF Rx Instructions: administer over 30 mins lorazepam 1 mg Tablet 1 mg PO Q4HR PRN (Reason: Anxiety) Qty: 20 0RF Referrals: Miscellaneous,Doctor, [Primary Care Provider] - Stand Alone Forms: Patient Portal/API/Survey
[2024-12-07 05:38] VITALS: BP 156/91; PULSE 106; RESP 18; TEMP 36.3; O2SAT 97; BMI 21.7
== END 2024-12-07 05:49 | disposition home or self-care (01) ==
LOC: ED 05:47
PROVIDERS: Emergency Provider Emergency Medicine
DX: Z02.89 Encounter for other administrative examinations (principal); F10.920 Alcohol use, unspecified with intoxication, uncomplicated
CPT/HCPCS: 99281

== ENCOUNTER → 2025-05-04 11:08 | Outpatient (CLI) | payer OTHER, SELFPAY ==
[2025-01-01 16:28] VITALS: BMI 19.8
--- NOTE | 2025-05-04 11:09 | DI.US.S_ITS ---
PROCEDURE: US ABDOMEN LIMITED INDICATIONS: alcohol use TECHNIQUE: Real-time focused scanning was performed of the abdomen, with image documentation. Twenty-nine images. COMPARISON: Prior ultrasound abdomen 12/09/2024 FINDINGS: Mild diffuse increased coarse echogenicity of the liver similar to the prior exam, commonly hepatic steatosis or intrinsic hepatic disease with possible microlobulated contour of the liver may be an indication of early findings of cirrhotic change. Correlation with serum laboratory values, ALT, AST, bilirubin and other lab tests may be useful. No ultrasound evidence of focal hepatic lesion. The liver measures approximately 14 cm in CC dimension of the right lobe within normal limits in size. Gallbladder is nondistended. No gallstones. No ultrasound evidence of gallbladder wall thickening or pericholecystic fluid. Sonographic Montez sign is not delineated. The common bile duct measures 4 millimeters within normal limits. Pancreas head and body within normal limits, tail not visualized due to overlying bowel gas. IMPRESSION: Diffuse increased echogenicity of the liver similar prior exam commonly hepatic steatosis or intrinsic hepatic disease as discussed above. Follow-up suggested. Dictated by: Antony Tran M.D. on 05/04/2025 at 14:16 Approved by: Antony Tran M.D. on 05/04/2025 at 14:19
== END ==
PROVIDERS: PCP Family Medicine; Referring Provider Family Medicine; Visit Provider Family Medicine
DX: F10.90 Alcohol use, unspecified, uncomplicated (principal)
CPT/HCPCS: 76705

== ENCOUNTER 2025-08-26 16:08 | Emergency (ER) | payer OTHER, SELFPAY ==
[2025-01-01 16:28] VITALS: BMI 19.8
[2025-08-26] VITALS (22 sets, daily range): BP systolic 118–164; BP diastolic 74–101; PULSE 79–107; RESP 16–25; TEMP 36.6; O2SAT 91–99; BMI 21.7
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
[2025-08-26 16:45] LABS: INR 1.1 (0.9-1.3); Prothrombin Time 12.1 SECONDS (9.4-12.5)
[2025-08-26 16:48] LABS: PTT Partial Thromboplastin Tim 31 SECONDS (25.1-36.5)
[2025-08-26 16:50] LABS: Lactate (Lactic Acid) 3.5 mmol/L (0.7-2.1)
[2025-08-26 16:51] LABS: Alanine Aminotransferase 167 IU/L (<50); Albumin 4.8 g/dL (3.5-5.0); Albumin Globulin Ratio 1.3 (1.0-2.8); Alkaline Phosphatase 105 U/L (38-126); Blood Urea Nitrogen 20 mg/dL (9-20); Calcium 8.6 mg/dL (8.4-10.2); Carbon Dioxide 18 mmol/L (22-32); Chloride 107 mmol/L (98-107); Creatine Kinase 205 U/L (55-170); Estimated Glomerular Filt Rate 56 mL/min (>60); Globulin 3.8 g/dL (1.7-4.1); Glucose 120 mg/dL (70-99); HEMOLYSIS 46 (0-50); Lipase 274 U/L (23-300); Potassium 3.9 mmol/L (3.4-5.1); Sodium 144 mmol/L (137-145); Total Protein 8.6 g/dL (6.3-8.2)
[2025-08-26 16:52] LABS: Add Manual Diff / Slide Review NO; Hematocrit 42.8 % (41-53); Hemoglobin 15.0 g/dL (13.5-17.5); Lymphocytes Absolute Auto 3100 /uL (1100-4500); Mean Corpuscular HGB Conc 34.9 % (30-36); Mean Corpuscular Hemoglobin 31.9 PG (26-34); Mean Corpuscular Volume 91.3 fL (80-100); Platelet Count 191 X10^3/uL (150-400)
[2025-08-26 16:59] LABS: Ethanol (ETOH) 388 mg/dL (<10)
[2025-08-26 17:02] LABS: Troponin I 0.019 ng/mL (0.01-0.034)
--- NOTE | 2025-08-26 17:07 | PC.NURSE ---
pt's was called and she stated she's not able to come in due to cancer and health issues. her daughter also has to work and is not able to come in. She stated that he is not on blood thinners, not on meds and has no medication allergies.
--- NOTE | 2025-08-26 17:44 | PC.NURSE ---
Patient is sleeping and his o2 sat dropped to 82%. He was placed on 2L NC and his 02 came back up to 98%.
--- NOTE | 2025-08-26 18:06 | PC.NURSE ---
Provider cleared c-spine precautions. Patient wants to sleep. will continue to monitor
[2025-08-26 18:08] LABS: Reflexed Lactate in 2 Hours Y
[2025-08-26 18:42] LABS: Lactate 2HR (Lactic Acid Rflx) 3.3 mmol/L (0.7-2.1)
[2025-08-26] MEDS: LACTATED RINGERS 1,000 ML 1000 ML IV ×3 (20:03→23:14)
[2025-08-26] MEDS: METOCLOPRAMIDE 10 MG/2 ML INJ IV (22:23)
[2025-08-26 22:59] LABS: Lactate (Lactic Acid) 3.8 mmol/L (0.7-2.1)
[2025-08-27] VITALS (14 sets, daily range): BP systolic 110–152; BP diastolic 69–94; PULSE 71–90; O2SAT 93–100
[2025-08-27 00:15] LABS: Reflexed Lactate in 2 Hours Y
[2025-08-27 01:00] LABS: Lactate (Lactic Acid) 3.3 mmol/L (0.7-2.1)
[2025-08-27 02:32] LABS: Reflexed Lactate in 2 Hours Y
[2025-08-27] MEDS: NALOXONE 4 MG NASAL SPRAY MISC (05:51)
== END 2025-08-27 06:26 | disposition home or self-care (01) ==
PROVIDERS: Emergency Medicine; Emergency Provider Family Medicine; PCP Family Medicine
DX: F10.129 Alcohol abuse with intoxication, unspecified (principal); Y90.8 Blood alcohol level of 240 mg/100 ml or more; V18.4XXA Pedal cycle driver injured in noncollision transport accident in traffic accident, initial encounter; S19.9XXA Unspecified injury of neck, initial encounter; S29.9XXA Unspecified injury of thorax, initial encounter; S09.90XA Unspecified injury of head, initial encounter
CPT/HCPCS: 36415; 70450; 71275; 72125; 74177; 80053; 80320; 82550; 83605; 83690; 84484; 85025; 85610; 85730; 96361; 96374; 99285; A9270; J2765; J7120; Q9967